=== PATIENT | female | born 1990 | race Caucasian/White ===

== ENCOUNTER 2021-01-01 17:31 | Emergency (ER) | payer BC, SELFPAY ==
[2021-01-01 17:39] VITALS: BP 106/59; PULSE 70; RESP 16; TEMP 36.4; O2SAT 98
[2021-01-01 18:03] LABS: Basophils Percent Auto 0.2 % (0.2-1.2); Eosinophils Percent Auto 0.2 % (0-4.4); Hematocrit 42.9 % (37.0-47.0); Immature Granulocyte Absolute 0.09 K/mm3 (0.00-0.031); Immature Granulocyte Percent A 0.5 % (0-0.5); Lymphocytes Absolute Auto 2.51 K/mm3 (0.9-3.2); Lymphocytes Percent Auto 13.6 % (18.3-44.2); Mean Corpuscular HGB Conc 32.6 g/dl (32-36); Mean Corpuscular Hemoglobin 28.9 pg (26-34); Mean Corpuscular Volume 88.5 fl (80-100); Mean Platelet Volume 10.2 fl (7.4-10.4); Monocytes Absolute Auto 1.5 K/mm3 (0.1-0.6); Monocytes Percent Auto 8.2 % (2.6-8.5); Neutrophils Absolute Auto 14.3 K/mm3 (1.3-6.7); Neutrophils Percent Auto 77.3 % (45.5-73.1); Platelet Count Result 299 k/mm3 (150-375); Red Blood Count 4.85 M/mm3 (4.2-5.4); Red Cell Distribution Width 13.7 % (11.5-14.5); White Blood Count 18.5 K/mm3 (4.5-10.0)
[2021-01-01 18:15] LABS: Albumin Level 4.8 g/dL (3.5-5.1); Alkaline Phosphatase 65 U/L (38-126); Anion Gap 11 mmol/L (8-16); Aspartate Amino Transferase 34 U/L (14-36); Bilirubin,Total 0.4 mg/dL (0.2-1.3); Blood Urea Nitrogen 11 mg/dL (7-17); Calcium 9.7 mg/dL (8.4-10.2); Carbon Dioxide 26 mmol/L (22-30); Chloride 101 mmol/L (98-107); Estimated CRCL calculation 107 ml/min; Estimated Glomerular Filt Rate > 60; Glucose 92 mg/dL (65-105); Potassium 3.2 mmol/L (3.4-5.0); Sodium 138 mmol/L (137-145)
[2021-01-01 18:22] LABS: Alanine Aminotransferase 22 U/L (4-35)
[2021-01-01] MEDS: SODIUM CHLORIDE 0.9% IV 1,000 ML 999 ML IV CONT ×2 (18:46→19:40)
[2021-01-01 19:36] VITALS: BP 128/78; PULSE 84; RESP 17; O2SAT 98
--- NOTE | 2021-01-01 19:36 | PC.NURSE ---
PT UNABLE TO URINATE, PROVIDER AWARE, RECEIVED ORDER FOR 1L NS BOLUS [address] MILLAN
[2021-01-01 20:40] LABS: Add Urine Microscopic? YES; Appearance Urine Cloudy (Clear); Bacteria Urine Trace /hpf; Bilirubin Urine Negative (Negative); Blood Urine Negative (Negative); Color Urine Yellow (Yellow); Glucose Urine UA Negative (Negative); Ketones Urine 2+ mg/dL (Negative); Leukocyte Esterase Ur Negative LEU/UL (Negative); Mucus Urine Moderate /lpf; Nitrate Urine Negative (Negative); Protein Urine 1+ mg/dL (Negative); Squamous Epithelial Cell Urine Many /hpf (Few); Urobilinogen Urine Negative mg/dL (<2.0); WBC Urine 0-3 /hpf
[2021-01-01 21:00] VITALS: BP 126/84; PULSE 84; RESP 16; O2SAT 99
--- NOTE | 2021-01-01 21:02 | ED.GENADULT ---
HPI - General Adult General Chief complaint: Nausea/Vomiting/Diarrhea Stated complaint: n/v, 12 weeks preg - requesting IV fluids Time Seen by Provider: 01/01/21 17:41 Source: patient Mode of arrival: ambulatory Limitations: no limitations History of Present Illness HPI narrative: 30-year-old 4 para 3 about 12 weeks of gestation here with complaints of nausea vomiting and diarrhea since yesterday, she feels dehydrated. She denies any fever or chills. She states that nausea has much improved prior to coming to the ER. Requesting IV fluids. She denies any abdominal pain, vaginal discharge or bleeding. No history of any abdominal cramping. Onset (ago): day(s) (1) Severity: moderate Exacerbating factors: none Associated symptoms: denies other symptoms Related Data Home Medications Medication Instructions Recorded Confirmed Baby Aspirin 01/01/21 Daily 01/01/21 Allergies Allergy/AdvReac Type Severity Reaction Status Date / Time No Known Allergies Allergy Unknown Unverified 01/01/21 17:46 Review of Systems Review of Systems: All systems reviewed & are unremarkable except as noted in HPI and below Constitutional: Constitutional: Reports no additional constitutional complaints Eyes: Eyes: Reports no additional eye complaints ENT: Reports system reviewed and no additional complaints, except as documented Cardiovascular: Cardiovascular: Reports no additional cardiovascular complaints Respiratory: Respiratory: Reports no additional respiratory complaints Gastrointestinal: Gastrointestinal: Reports as per HPI Musculoskeletal: Musculoskeletal: Reports no additional musculoskeletal complaints Neurologic: Reports system reviewed and no additional complaints, except as documented Endocrine: Endocrine: Reports no additional endocrine complaints PMFSH Social History Social History Gender identity (if verbalized by the patient): Female Exam Narrative: Exam Narrative: GENERAL: Well-appearing, well-nourished, and in no acute distress. HEAD: Normocephalic, atraumatic. EYES: PERRLA and EOMI NECK: Supple. CHEST: Clear to auscultation. No respiratory distress. HEART: Regular rate and rhythm. No murmur heard. Normal peripheral pulses. ABDOMEN: Soft, nontender, nondistended, normal active bowel sounds. EXTREMITIES: Normal range of motion. No edema. SKIN: Warm, dry, no rash. NEURO: No focal deficits. Alert and oriented x3. PSYCH: Normal mood and affect. Course Course Emergency Course: Patient did receive 2 bags of IV fluids, she states that she is feeling a lot better. No further episodes of any diarrhea or nausea or vomiting. I discussed lab work with patient and her . She states that she has an appointment to see OB in the next 2 days. Advised her to drink a lot of fluids. Vital Signs Vital signs: Vital Signs Temperature 36.4 C 01/01/21 17:39 Pulse Rate 70 01/01/21 17:39 Respiratory Rate 16 01/01/21 17:39 Blood Pressure 106/59 L 01/01/21 17:39 Pulse Oximetry 98 01/01/21 17:39 Temperature 36.4 C 01/01/21 17:39 Pulse Rate 84 01/01/21 21:00 Respiratory Rate 16 01/01/21 21:00 Blood Pressure 126/84 01/01/21 21:00 Pulse Oximetry 99 01/01/21 21:00 Medical Decision Making Differential Diagnosis Differential Diagnosis: Gastroenteritis, diarrhea dehydration, UTI Vital Signs Vital Signs: Vital Signs Temperature 36.4 C 01/01/21 17:39 Pulse Rate 70 01/01/21 17:39 Respiratory Rate 16 01/01/21 17:39 Blood Pressure 106/59 L 01/01/21 17:39 Pulse Oximetry 98 01/01/21 17:39 Temperature 36.4 C 01/01/21 17:39 Pulse Rate 84 01/01/21 21:00 Respiratory Rate 16 01/01/21 21:00 Blood Pressure 126/84 01/01/21 21:00 Pulse Oximetry 99 01/01/21 21:00 Lab Data Result diagrams: 01/01/21 17:56 01/01/21 17:56 Labs: Lab Results 01/01/21
== END 2021-01-01 21:32 | disposition home or self-care (01) ==
PROVIDERS: Emergency Provider Family Medicine; PCP Nurse Practitioner Family
DX: O99.611 Diseases of the digestive system complicating pregnancy, first trimester (principal); K52.9 Noninfective gastroenteritis and colitis, unspecified; Z3A.12 12 weeks gestation of pregnancy
CPT/HCPCS: 36415; 80053; 81001; 85025; 96360; 99283; J7030

== ENCOUNTER 2021-05-28 12:35 | Observation (INO) | payer BC, SELFPAY ==
[2021-05-28 12:56] VITALS: BMI 26.8
--- NOTE | 2021-05-28 12:57 | OBADM ---
This patient, Laisha Davila, admitted to the OB room 116 for observationfor extended monitoring due to FHR deceleration on NST at office. Patient/family oriented to hospital policies and general routines including ID bracelet, bed and alarms, visiting hours, pain management, procedures, bathroom and other care routines, personal items, smoking policy, room service/diet, and visiting hours. Patient/Family are encouraged to report perceived risks to care and to ask questions if they do not understand what they are told or what they should do.
[2021-05-28 13:00] VITALS: BP 109/63; PULSE 75
[2021-05-28 13:01] VITALS: RESP 16; TEMP 36.6
[2021-05-28 14:00] VITALS: BP 97/57; PULSE 74
--- NOTE | 2021-05-28 14:41 | PC.NURSE ---
Marco Adame CNM informed pt has been on the monitor almost 2 hrs with moderate variability and reactive accels, occasional 10 sec drop in FHR after an acceleration that makes it more a fluctuation in variability than a decel. Good movement marked.
--- NOTE | 2021-05-28 14:41 | PC.NURSE ---
Discharge orders received.
--- NOTE | 2021-06-07 10:03 | PM.OBTRLD ---
OB - Triage/Final Diagnosis Visit Information Comments/Additional reasons for admission: I have assessed the risk for this patient, Laisha Davila, and determined that she would benefit from observation care. Final Diagnosis (1) Non-reassuring electronic monitoring tracing: Code(s): O36.8390 - Maternal care for abnormalities of the heart rate or rhythm, unspecified trimester, not applicable or unspecified Status: Acute
== END 2021-05-28 15:03 | disposition home or self-care (01) ==
PROVIDERS: Admitting Provider Obstetrics & Gynecology; Visit Provider Obstetrics & Gynecology
DX: O36.8393 Maternal care for abnormalities of the fetal heart rate or rhythm, unspecified trimester, fetus 3 (principal); Z3A.32 32 weeks gestation of pregnancy
CPT/HCPCS: G0378; G0379

== ENCOUNTER 2021-07-06 18:14 | Inpatient (IN) | payer BC, SELFPAY ==
--- NOTE | 2021-07-06 18:14 | LDADM ---
This patient, Laisha Davila, was admitted to Labor/Delivery/Recovery 106 on 07/06/21 at 18:56. Plans for labor, pain management and were discussed with patient. Patient/family oriented to hospital policies and general routines including ID bracelet, bed and alarms, visiting hours, pain management, procedures, bathroom and other care routines, personal items, smoking policy, room service/diet and guest tray routines, infant security routines, and visiting hours. Patient/Family are encouraged to report perceived risks to care and to ask questions if they do not understand what they are told or what they should do. See OBIX for further documentation.
[2021-07-06] MEDS: AMPICILLIN 2 GM/NS 100 ML 2 GM/100 ML BAG IVPB (19:50)
[2021-07-06] MEDS: LACTATED RINGERS 1,000 ML 125 ML IV CONT (19:59)
[2021-07-06] MEDS: fentaNYL CITRATE INJ (*CRX) 100 MCG/2 ML VIAL 50 MCG IV PUSH ×3 (20:00→22:36)
[2021-07-06 20:19] LABS: Hematocrit 38.4 % (37.0-47.0); Hemoglobin 12.7 g/dL (12.0-15.0); Mean Corpuscular HGB Conc 33.1 g/dl (32-36); Mean Corpuscular Hemoglobin 29.2 pg (26-34); Mean Corpuscular Volume 88.3 fl (80-100); Mean Platelet Volume 10.8 fl (7.4-10.4); Platelet Count Result 228 k/mm3 (150-375); Red Blood Count 4.35 M/mm3 (4.2-5.4); Red Cell Distribution Width 14.5 % (11.5-14.5); White Blood Count 21.2 K/mm3 (4.5-10.0)
[2021-07-06 20:39] LABS: Amphetamine Screen Urine Negative (Negative); Barbiturate Screen Urine Negative (Negative); Benzodiazepines Screen Urine Negative (Negative); Cannabinoid Screen Urine Positive (Negative); Cocaine Screen Urine Negative (Negative); Methadone Screen Urine Negative (Negative); Opiate Screen Urine Negative (Negative); Phencyclidine Screen Urine Negative (Negative)
[2021-07-06 20:54] VITALS: BP 102/61; PULSE 81
[2021-07-06 20:59] LABS: Glucose Point of Care 78 mg/dl (65-105)
[2021-07-06 21:03] LABS: Lymphocytes Absolute Manual 1.69 K/mm3 (1.1-4.5); Monocytes Absolute Manual 1.27 K/mm3 (0.1-0.90); Monocytes Percent Manual 6 % (3-9); Neutrophils Percent Manual 86 % (46-73); Platelet Estimate Adequate (Adequate); Total Cells Counted 100
[2021-07-06 21:41] VITALS: RESP 20; TEMP 37.1
[2021-07-06 22:06] VITALS: BP 113/77; PULSE 77
[2021-07-06 23:07] VITALS: RESP 18; TEMP 37
[2021-07-06 23:09] LABS: Glucose Point of Care 118 mg/dl (65-105)
[2021-07-06 23:27] VITALS: BP 124/70; PULSE 84
[2021-07-06] MEDS: AMPICILLIN 1 GM/NS 50 ML 1 GM/50 ML BAG IVPB (23:34)
[2021-07-06] MEDS: ONDANSETRON INJ 4 MG/2 ML VIAL IV PUSH (23:39)
[2021-07-07] VITALS (18 sets, daily range): BP systolic 94–129; BP diastolic 52–98; PULSE 52–93; RESP 12–18; TEMP 36.5–37; O2SAT 99–100; BMI 27.8
[2021-07-07] MEDS: fentaNYL CITRATE INJ (*CRX) 100 MCG/2 ML VIAL 50 MCG IV PUSH ×2 (00:38→01:39)
[2021-07-07 01:29] LABS: Glucose Point of Care 128 mg/dl (65-105)
--- NOTE | 2021-07-07 01:40 | P.HP_ITS ---
Obstetrics - Admit Note Admission Note: 30 /o @ 38weeks here with spontaneous labor. complicated by GDM. Diet controlled. /-2 AROM small amout of clear odorless fluid record reviewed. No pertinent additions to the history and/or any subsequent changes in the physical findings that are not consistent with the e xpected course of the were found. Additions to the history and/or subsequent changes in the physical findings follow. None.
[2021-07-07] MEDS: OXYTOCIN 30 UNITS/NS 500 ML 30 UNITS/500 ML BAG 999 UNITS IV CONT ×2 (02:12→02:50)
--- NOTE | 2021-07-07 02:19 | P.PCNOB_ITS ---
OB - Delivery Note Procedure Delivery date: 07/07/21 Intrapartal events: None Induction method: none Episiotomy description: None Laceration Description: None Quantitative Blood Loss (ml): 147 Anesthesia type: None [place] Baby Date of : 07/07/21 Weeks of gestation at delivery: 38 gender: Female presentation: vertex position: Left Occiput Anterior Placenta delivery description: Spontaneous Narrative: Mother and baby in stable condition. Venous cord gas collected and handed off to staff. Unable to collect arterial.
[2021-07-07] MEDS: IBUPROFEN 600 MG TABLET PO ×3 (03:45→19:43)
--- NOTE | 2021-07-07 04:35 | OBPPTRN ---
Patient transferred to post room # 4803via wheelchair. Support person present. Oriented to unit, room, information board, rooming in, admission packet and security measures. Patient verbalizes understanding.
[2021-07-07] MEDS: ONDANSETRON INJ 4 MG/2 ML VIAL IV PUSH (06:33)
[2021-07-07] MEDS: KETOROLAC 30 MG/ML VIAL (*BKC) IV PUSH (06:59)
[2021-07-07] MEDS: ACETAMINOPHEN 325 MG TABLET 650 MG PO ×2 (09:21→15:37)
[2021-07-07 09:26] LABS: Rapid Plasma Reagin Non-Reactive (NonReactive)
--- NOTE | 2021-07-07 11:23 | PCCCNOTE ---
Received consult for marijuana use. Spoke to nursing. Pt. is positive for marijuana on urine drug use. No urine drug screen on baby girl; meconium is pending. Met with pt. and father of baby at bedside. Pt. confirms marijuana use. She denies any other use of substances or alcohol during . She lives with father of baby and their 2 other children. She indicates having supportive family and that father of baby's family is supportive as well. Each of their mothers are coordinating care of their other children during hospitalization. They state having all needed items to care for at return home and state making too much money for WIC. They report no history with DCFS. Nursing reports no other concerns. Situation reported to DCFS and information does not meet criteria for investigation; information will be kept on file. Intake ID#[id number]. No other care coordination needs indicated at this time.
--- NOTE | 2021-07-07 12:45 | PC.NURSE ---
to mother after blood glucose. Mother reports has had difficulties maintaining latch and freq sleepy at breast. is able to freely thrust tongue frenulum appears tight, both lips flange. Skin is intact on both nipples, slight redness noted. Reviewed feeding cues, frequencies, duration of feedings, feeding elimination flow sheet, and signs of adequate intake. Demonstrated stimulation techniques to wake for feeding. Assisted with infant to breast. Reviewed positioning/alignment in cross cradle, holding breast in ?U? hold and guided asymmetrical latch on. Reviewed rational for each. Once infant is latched mother released hold and infant is unable to maintain latch. Infant made a few attempts to latch with short burst of suckling noted, then released latch sleeping and unable to wake to latch. Mother states she will bottle feed. Reviewed she can skin to skin for 15 minutes and attempt again if infant does not nurse then supplement due to time from last feeding. Nipple care reviewed of lanolin after feedings, warm compresses as needed. Instructed mother to call out for RN assistance if she is unable to latch for feeding or she has discomfort with nursing. Discussed the difference of effective vs ineffective feeding. Reviewed this feeding is not effective with only a few bursts of suckling no adequate milk transfer at this time. Feeding options discussed, Feeding Plan is for mother to put to breast each feeding for up to 15 minutes, then pace feed supplement 20 mls and pump for 10-15 minutes. Parents are comfortable with supplementation and pumping.
[2021-07-08] MEDS: ACETAMINOPHEN 325 MG TABLET 650 MG PO ×2 (01:19→09:59)
[2021-07-08] MEDS: IBUPROFEN 600 MG TABLET PO ×2 (04:15→10:00)
[2021-07-08 05:54] LABS: Hematocrit 34.9 % (37.0-47.0); Hemoglobin 11.2 g/dL (12.0-15.0)
--- NOTE | 2021-07-08 07:30 | PC.NURSE ---
PT introductions made and plan of care discussed per post , pain management, breast feeding, daily care activities and pending discharge to home. PT received such instructions per one to one discussion , mom baby care guide and demonstrations through out this shift. PT sole recipient of such instructions and no barriers to learning identified at this time. PT verbalized understanding of such care.
[2021-07-08 08:55] VITALS: BP 100/60; PULSE 57; RESP 16; TEMP 36.6; O2SAT 100
--- NOTE | 2021-07-08 09:12 | PM.OBPNVD ---
OB - PN: Subj Subjective Date/time seen: 07/08/21 09:12 Patient comments: no complaints baby status: doing well OB - PN: Obj Data Labs CBC & Chem 7: 07/08/21 04:23 Labs: Laboratory Results - last 24 hr 07/06/21 07/08/21 19:53 04:23 Hgb 11.2 L Hct 34.9 L RPR Non-reactive OB - PN A/P Plan day: 2 Plan: routine care and discharge home (RTC in 4 weeks) Time Spent With Patient Time: Total time spent is greater than 50% in coordination of care (as documented) at patient's floor/unit and/or counseling patient: Time with patient: less than 15 minutes Review of Systems Review of Systems: All systems reviewed & are unremarkable except as noted in HPI and below Exam Narrative: Fundus firm and vaginal flow controlled. No lower ext redness, warmth, or edema. Negative homans. Const: General: comfortable Chest: Breast/axilla inspection: normal inspection of the breasts Resp: Effort & Inspection: normal respiratory effort Cardio: Rate: regular rate GI: GI Palp: Yes Soft to palpation Psych: Appearance: grossly normal Affect: normal affect Attitude: cooperative Thought content: Yes Normal thought content present Judgement: Good judgement present (Psych)
--- NOTE | 2021-07-08 09:50 | PC.NURSE ---
Observed mother is able to independently latch infant with appropriate positioning/alignment. She denies any nipple discomfort, is feeding as required and waking infant to feed if needed. Mother reports has been sleepy, not eagerly latching and having difficulties maintaining latch. Discussed infant tongue and how it may impact latch. Advised to discuss with her PCP at first appointment. Mother will make a few minutes of attempt to breast then supplement. will eagerly nurse the first 2-3 minutes then fall asleep at breast maintaining good latch. Infant has been enticed with formula, he will have a few bursts of suckling then fall asleep. Infant has had a few effective feedings in the past 24 hours, all feedings is supplemented. Infant is currently meeting outcomes for weight, output, jaundice and feeding frequencies. Mother has a pump for home use, and is comfortable with use. Discussed the difference of effective vs ineffective feeding. Reviewed requires supplementation after all feedings. He is latching with good burst of suckling, he is not feeding consistently with adequate milk transfer at this time and continues to need to be supplement after . Feeding plan discussed, Feeding Plan is for mother to put to breast each feeding for up to 15 minutes, then pace feed supplement 25-30 mls and pump for 10-15 minutes. Discussed increasing supplementation as infant requires to satisfactions. Reviewed paced feeding and suggested to stop when is satisfied, as long as infant is having required output. With increased supplementation infant may not want to feed for 4 hours. Mother will continue to pump on feeding schedule and will increase session to 20 minutes if pumping every 4 hours. If begins to nurse effectively with long draws and frequent swallowing noted, infant may decrease supplementation and discontinue pumping. Advised not to discontinue supplement until a pre/post feeding evaluation by infant PCP, Follow up RN or LC is completed. Mother states she feels confident to continue feeding plan at home. Reviewed transition to breast milk, signs of adequate intake, and engorgement/relief. Instructed to call ICP if intake/output less than required. Reviewed regular medications mother is taking. Information provided per [facility]. Reviewed community resources on the [employer] website and in the Mom/Baby guide. Information on outpatient services provided. Mother has no further questions at this time.
[2021-07-08 10:00] VITALS: BP 113/67; PULSE 55; RESP 16; TEMP 36.9; O2SAT 99
[2021-07-08] MEDS: MULTIVIT/MIN/PREN/FOL AC/IRON TABLET 1 TAB PO (10:00)
[2021-07-08] MEDS: DOCUSATE SODIUM 100 MG CAPSULE PO (10:00)
[2021-07-08] MEDS: LANOLIN (LANSINOH) 7.5 GM CREAM 1 APPLIC TOPICAL (10:01)
--- NOTE | 2021-07-08 12:00 | PC.NURSE ---
PT received discharge instructions per protocol and verbalized understanding of such instructions.
--- NOTE | 2021-07-08 12:25 | PC.NURSE ---
PT discharged to home ambulatory accompanied by both spouse and infant and taken to waiting car. Follow up appts confirmed
[2021-07-09 11:53] VITALS: BP 115/66; PULSE 50; RESP 20; TEMP 36.8; O2SAT 100
--- NOTE | 2021-07-16 07:54 | PM.OBDSVD ---
DS: Admitting Diagnosis Discharge Date 07/08/21 Admitting Diagnosis Labor OB - DS: Summary OB Procedures : None OB Procedures Intrapartum: Spontaneous Vag Delivery OB Procedures: : None Time Spent with Patient Time attestation: Total time spent providing and/or coordinating discharge services: DS: Data Data Completed and Pending Completed studies during hospitalization: Pending at discharge 07/07/21 02:42 Surgical [PTH] Routine Discharge Plan Discharge Attending physician on discharge: Kaci Adame Consulting providers: Kaci Adame Discharging Clinician: Kaci Adame Patient Disposition: Home, Self-Care Activity: pelvic rest Diet: as tolerated Discharge Instructions: Education: Mom and Baby Guide Given to: Mother Follow-Up: Call your delivering provider's office for an appointment to be seen in: Mom and baby should come to the [facility] for the follow-up appointment. Appointment Date/Time: July 09, 2021 at 11:00 am What to expect at your follow-up visit: Blood Pressure Check Call [phone] if you are unable to keep your appointment time. BREAST CARE: * Wear a snug supportive bra. * For engorgement discomfort: Breast Feeding: * Apply warm moist washcloths * Express milk as needed to relieve engorgement * Wear loose clothing Bottle Feeding: * May apply ice packs * For sore nipples: * Identify correct latch-on * Apply warm moist washcloths before and after nursing * Air dry nipples after nursing * May apply Lansinoh cream to nipples PERINEAL CARE: * Until bleeding stops, use your denise bottle after urinating * Change your pad frequently throughout the day * You may take sitz baths several times a day (fill your bathtub with warm water and soak for 20 minutes.) Do NOT bathe in the water * No tub baths until seen by your physician - You may shower ACTIVITY: * Rest as much as possible. * Do not exercise or lift anything heavier than your baby (such as laundry or other children.) * Avoid stairs or driving as much as possible. * Do not put anything into the vagina. No douching, tampons, or sexual activity until seen by physician. NOTIFY PHYSICIAN IF YOU HAVE ANY QUESTIONS OR IF ANY OF THE FOLLOWING SYMPTOMS OCCUR: * If your perineum becomes red, swollen, or more painful than what you have experienced in the hospital. * If your vaginal bleeding becomes foul smelling. * If your vaginal bleeding becomes more heavy than a period or if your bleeding changes from pink to bright red. However, you may pass an occasional walnut-sized clot once or twice for the first week . * If you experience a sharp, shooting pain in you calves. * If you discover a hard, reddened area on your breast or if you experience flu-like symptoms. *If you have a fever of 100.4 or greater DIET: * Eat regular, well-balanced meals. * Drink plenty of fluids daily. If , drink to thirst. Patient Instructions: Antibiotic Form Stand Alone Forms: General Discharge Information Follow-up/Referrals: Kaci Adame CNM [Certified Nurse Battalion Chief] - Discharge Medications: New ibuprofen 600 mg Tablet 600 mg PO Q6H PRN (Reason: Cramping) Qty: 20 RF: 0 Continued aspirin 81 mg Tablet 81 mg PO DAILY RF: 0 PNV cmb#[id number]-ferrous fumarate-FA [] 28 mg iron- 800 mcg Tablet 1 tablet PO DAILY RF: 0 Discontinued Novolin N NPH U-100 Insulin 100 unit/mL Cartridge 8 unit SUBCUT HS RF: 0 Date of admission: 07/06/21 18:56 Primary Care Provider: PHYSICIAN,ASE CERTIFIED TECHNICIAN Admitting Provider: Kari Birmingham Attending physician on admission: Kari Birmingham Condition: Stable
== END 2021-07-08 12:25 | disposition home or self-care (01) | DRG 807 ==
LOC: ANHLDR 18:56 → ANHOB2 07-07 05:53
PROVIDERS: Advanced Practice Midwife; Admitting Provider Obstetrics & Gynecology; Visit Provider Obstetrics & Gynecology
DX: O24.420 Gestational diabetes mellitus in childbirth, diet controlled (principal); Z37.0 Single live birth; O99.824 Streptococcus B carrier state complicating childbirth; Z3A.38 38 weeks gestation of pregnancy
CPT/HCPCS: 36415; 80307; 82948; 85014; 85018; 85025; 86592; 86850; 86900; 86901; 88307; A9270; J0290; J1885; J2405; J2590; J3010; J7120

== ENCOUNTER 2022-04-10 21:43 | Emergency (ER) | payer BC, SELFPAY ==
--- NOTE | ~2022-04-10 | CT_ITS ---
EXAMINATION: CT abdomen pelvis w con INDICATION: Right upper quadrant pain TECHNIQUE: Computed tomographic images of the abdomen and pelvis were obtained after the administrati on of 100 cc of Omnipaque 350 intravenous contrast. The dose-length product (DLP) was 407.73 mGy-cm. Automated exposure control and iterative reconstruction technique were employed. COMPARISON: 06/06/2019 FINDINGS: The lung bases are clear. The heart size is normal. The liver, spleen, pancreas, and adrena l glands are normal. There appear to be layering stones in the gallbladder which is not distended. No nobstructing stones of the kidneys measure up to 5 mm on the right. A 6 mm hypoattenuating lesion of the left kidney is too small to characterize but likely represents a cyst. No pathologically enlarged abdominal or pelvic lymph nodes are identified. There is no free intraperitoneal gas or evidence of bowel obstruction. The appendix is normal. Mild lumbar spondylosis is noted. IMPRESSION: 1. Cholelithiasis. Reviewed, dictated and finalized at location A. IMPRESSION: 1. Cholelithiasis.
[2022-04-10 21:47] VITALS: BP 128/73; PULSE 67; RESP 17; TEMP 36.4; O2SAT 100
[2022-04-10 22:12] LABS: Basophils Percent Auto 0.3 % (0.2-1.2); Eosinophils Absolute Auto 0.4 K/mm3 (0-0.3); Hematocrit 37.3 % (37.0-47.0); Hemoglobin 11.7 g/dL (12.0-15.0); Immature Granulocyte Absolute 0.02 K/mm3 (0.00-0.031); Immature Granulocyte Percent A 0.3 % (0-0.5); Lymphocytes Absolute Auto 2.77 K/mm3 (0.9-3.2); Lymphocytes Percent Auto 44.6 % (18.3-44.2); Mean Corpuscular HGB Conc 31.4 g/dl (32-36); Mean Corpuscular Hemoglobin 28.5 pg (26-34); Mean Platelet Volume 9.4 fl (7.4-10.4); Monocytes Absolute Auto 0.8 K/mm3 (0.1-0.6); Monocytes Percent Auto 13.4 % (2.6-8.5); Neutrophils Absolute Auto 2.2 K/mm3 (1.3-6.7); Neutrophils Percent Auto 35.4 % (45.5-73.1); Platelet Count Result 210 k/mm3 (150-375); White Blood Count 6.2 K/mm3 (4.5-10.0)
--- NOTE | 2022-04-10 22:17 | ED.ABDPAIN ---
HPI - Abdominal Pain General Chief Complaint: Abdominal Pain <VERITO Zavala Last Filed: 04/10/22 23:42> Stated Complaint: RUQ pain <VERITO Zavlaa Last Filed: 04/10/22 23:42> Time Seen by Provider: 04/10/22 21:55 <VERITO Zavala Last Filed: 04/10/22 23:42> Source: patient <VERITO Zavala Last Filed: 04/10/22 23:42> Mode of arrival: ambulatory <VERITO Zavala Last Filed: 04/10/22 23:42> Limitations: no limitations <VERITO Zavala Last Filed: 04/10/22 23:42> History of Present Illness HPI narrative: This is a 31-year-old female that presents to the emergency department for right upper quadrant pain. Ongoing over the last several months. Reports she has known history of gallbladder disease and was recommended by Dr. Ferrer to have a cholecystectomy. Today she ate pizza for lunch and since has had constant right upper quadrant abdominal pain. Associated with nausea. Denies fever or vomiting. <VERITO Zavala Last Filed: 04/10/22 23:42> Related Data Allergies/Adverse Reactions: Allergies Allergy/AdvReac Type Severity Reaction Status Date / Time No Known Allergies Allergy Unknown Verified 01/07/22 09:26 <VERITO Zavala Last Filed: 04/10/22 23:42> Review of Systems Review of Systems: CONSTITUTIONAL: Denies fever GASTROINTESTINAL: Reports abdominal pain, nausea. Denies vomiting GENITOURINARY: Denies dysuria <VERITO Zavala Last Filed: 04/10/22 23:42> All systems reviewed & are unremarkable except as noted in HPI and below <VERITO Zavala Last Filed: 04/10/22 23:42> [facility] Past Medical History Medical History: Medical History History of gestational diabetes Kidney stones <VERITO Zavala Last Filed: 04/10/22 23:42> Surgical History Surgical History: Surgical History S/P adenoidectomy <Kate Lopez PA-C - Last Filed: 04/10/22 23:42> Family History Family History: Family History Unknown Diabetes mellitus Hypertension Cancer Allergies <Kate Lopez PA-C - Last Filed: 04/10/22 23:42> Social History Social History: Social History Smoking status: Never smoker Second hand tobacco smoke exposure: No Substance use: never Gender identity (if verbalized by the patient): Female Spiritual care concerns: No <VERITO Zavala Last Filed: 04/10/22 23:42> Exam Narrative: GENERAL: Well-appearing, well-nourished, and in no acute distress. HEAD: Normocephalic, atraumatic. EYES: EOMI. CHEST: Clear to auscultation. No respiratory distress. No wheezes rales or rhonchi HEART: Regular rate and rhythm. No murmur heard. Normal peripheral pulses. ABDOMEN: Soft, nondistended, normal active bowel sounds. Tender to palpation in the right upper quadrant, without guarding EXTREMITIES: Normal range of motion. No edema. SKIN: Warm, dry, no rash. NEURO: No focal deficits. Alert and oriented x3. PSYCH: Normal mood and affect <Kate Lopez PA-C - Last Filed: 04/10/22 23:42> Course UPPER LINING CEMENTER/PA Physician Supervision For this encounter, I have reviewed the PIPER documentation, treatment plan and medical decision making: I was available for consultation as needed. [] <Khadar Grajeda DO - Last Filed: 04/11/22 01:48> Consultations Consultation #1: Spoke with Dr. [place] about patient and work-up. Patient is to follow-up in clinic <VERITO Zavala Last Filed: 04/10/22 23:42> Date: 04/10/22 <Kate Lopez PA-C - Last Filed: 04/10/22 23:42> Time: 23:39 <Kate Lopez PA-C - Last Filed: 04/10/22 23:42> Vital Signs Vital signs: Vital Signs Temperature 97.5 F L 04/10/22 21:47 Pul
[2022-04-10 22:18] LABS: Appearance Urine Clear (Clear); Bilirubin Urine Negative (Negative); Blood Urine Trace-lysed (Negative); Color Urine Yellow (Yellow); Glucose Urine UA Negative (Negative); Ketones Urine Negative (Negative); Leukocyte Esterase Ur Negative LEU/UL (Negative); Nitrate Urine Negative (Negative); Protein Urine Negative (Negative); Specific Grav Ur >= 1.030 (1.001-1.035); Urobilinogen Urine 0.2 mg/dL (<2.0); pH Urine 5.5 (5.0-9.0)
[2022-04-10 22:23] LABS: Alanine Aminotransferase 14 U/L (6-35); Alkaline Phosphatase 49 U/L (38-126); Anion Gap 7 mmol/L (8-16); Aspartate Amino Transferase 21 U/L (14-36); Bilirubin,Total 0.1 mg/dL (0.2-1.3); Blood Urea Nitrogen 17 mg/dL (7-17); Calcium 8.6 mg/dL (8.4-10.2); Carbon Dioxide 29 mmol/L (22-30); Chloride 101 mmol/L (98-107); Estimated Glomerular Filt Rate > 60; Glucose 114 mg/dL (65-110); Lipase 104 U/L (23-300); Potassium 4.1 mmol/L (3.4-5.0); Sodium 137 mmol/L (137-145)
[2022-04-10 22:24] LABS: Add Urine Microscopic? YES; Bacteria Urine Trace /hpf; Mucus Urine Rare /lpf; RBC Urine 0-2 /hpf (0-2); Squamous Epithelial Cell Urine Few /hpf (Few); WBC Urine 0-3 /hpf
[2022-04-10] MEDS: MORPHINE SULFATE (*CRX) 4 MG/ML INJ IV PUSH (22:24)
[2022-04-10] MEDS: ONDANSETRON INJ 4 MG/2 ML VIAL IV PUSH (22:24)
[2022-04-10] MEDS: SODIUM CHLORIDE 0.9% IV 1,000 ML 999 ML IV CONT (22:24)
[2022-04-10 23:00] VITALS: BP 126/76; PULSE 78; RESP 16; TEMP 36.3; O2SAT 98
[2022-04-10] MEDS: KETOROLAC 15 MG/ML VIAL (*BKC) IV PUSH (23:56)
[2022-04-11 00:01] VITALS: BP 92/61; PULSE 57; RESP 18; O2SAT 100
== END 2022-04-11 00:02 | disposition home or self-care (01) ==
PROVIDERS: Physician Assistant; Emergency Provider Emergency Medicine; PCP Nurse Practitioner Adult Health
DX: K80.20 Calculus of gallbladder without cholecystitis without obstruction (principal); Z87.442 Personal history of urinary calculi
CPT/HCPCS: 36415; 74177; 80053; 81001; 81025; 83690; 85025; 96361; 96365; 96375; 99284; J0131; J1885; J2270; J2405; J7030; Q9967

== ENCOUNTER 2022-05-04 10:46 | Outpatient (CLI) | payer BC, SELFPAY ==
[2022-05-04 11:26] LABS: Amylase 68 U/L (30-110)
== END 2022-05-04 10:47 | disposition home or self-care (01) ==
LOC: ANHSURGERY 10:50
PROVIDERS: PCP Nurse Practitioner Adult Health; Visit Provider Surgery
DX: Z01.812 Encounter for preprocedural laboratory examination (principal); K80.20 Calculus of gallbladder without cholecystitis without obstruction
CPT/HCPCS: 36415; 82150; 86850; 86900; 86901

== ENCOUNTER 2022-05-07 01:58 | Day surgery (SDC) | payer BC, SELFPAY ==
[2022-04-27 17:08] VITALS: BMI 30.2
--- NOTE | 2022-04-27 17:33 | PC.NURSE ---
Report to the Outpatient Waiting Room, entrance under the green pavilion located off [facility], at 1130 on 05-07-22 . OR Time: 1330. - You and your visitor will be asked to self-screen and do not enter if you have any COVID symptoms. - Only one visitor and NO children visitors are allowed at this time. - The patient visitor is requested to leave or wait in car when not with patient due to restrictions. - A mask is required within the hospital. Patients may have clear liquids (water, carbonated beverages, clear teas, apple juice) until 3 hours prior to surgery with a maximum of 20 ounces. 1030 - No food from midnight until time of surgery - Infants may have breast milk until 4 hours before surgery, infant formula 6 hours prior to surgery. - Children will be allowed to drink immediately following surgery. If applicable, please bring a bottle or sippy cup to assist with drinking. Juice, water, soda, and popsicles are readily available. For infants on formula, please bring formula the day of surgery. Pacifiers are allowed. Take the following medications with a SIP of water the morning of surgery: Forrest if needed Medications to discontinue per physician: Ibuprofen Date to take last dose: Per Dr. Ferrer Please no make-up, nail maltese, hairspray, perfume, deodorant, or body powder the day of surgery. No jewelry (including any body piercings) or valuables the day of surgery, leave them at home. Please take a shower or bath the night before, or the morning of, surgery with an antibacterial soap. Hibiclens Wear comfortable, loose fitting clothing. Children are encouraged to wear pajamas. - Jewelry must be removed prior to entering the operating room. Rings and piercings that are not removed may be cut off. - The hospital will not accept responsibility for valuables. - Please leave all valuables, including medications, at home the day of surgery. If you are going home after surgery, a licensed armor reconnaissance vehicle driver must drive you home. - NO public transportation without another adult. - We recommend that an adult stay with you for 24 hours following discharge. - We also recommend that you do not drive, make important decision, drink alcoholic beverages, or take any drugs that were not prescribed by your health care provider for at least 24 hours after your discharge time. For Pediatric surgeries, we recommend two adults accompany the child home (only one inside the building at this time). Follow any additional instructions given to you from your surgeon. If you or anyone in your household have experienced Covid symptoms in the past week, please notify your surgeon or the nurse liaison at the phone number below for possible testing. Telephone instructions given to Laisha Davila and asked if any additional questions and then verbalized understanding. Patient advised to call surgeon office or pre surgery nurse liaison [phone] if any additional questions.
[2022-05-07] VITALS (10 sets, daily range): BP systolic 93–135; BP diastolic 54–82; PULSE 60–89; RESP 14–16; TEMP 36.2; O2SAT 92–100
[2022-05-07] MEDS: LACTATED RINGERS 1,000 ML 30 ML IV CONT ×2 (12:17→16:00)
[2022-05-07] MEDS: KETOROLAC 15 MG/ML VIAL (*BKC) IV PUSH (12:18)
[2022-05-07] MEDS: ACETAMINOPHEN 500 MG TABLET 1000 MG PO (12:18)
--- NOTE | 2022-05-07 12:31 | WPDANESEPPF ---
Anes - Initial Pre Proc Eval Procedure: Operation Date: 05/07/22 13:30 Proposed Procedures p Laparoscopic Cholecystectomy, Possible Open - Fly Ferrer DO Date/Time: 05/07/22 12:31 Surgeon: Fly Ferrer DO Pre Op Diagnosis: Symptomatic Cholelithiasis Patient Data Age: 31 Gender: F Height: 1.57 m Weight: 69.49 kg Last Vital Signs Temp 36.2 C L 05/07/22 12:24 Pulse 68 05/07/22 12:24 Resp 16 05/07/22 12:24 BP 114/72 05/07/22 12:24 Pulse Ox 100 05/07/22 12:24 O2 Del Method Room Air 05/07/22 12:24 Allergies Allergy/AdvReac Type Severity Reaction Status Date / Time No Known Allergies Allergy Unknown Verified 05/07/22 12:23 Home Medications Medication Instructions Recorded Confirmed Type hydrocodone 5 mg-acetaminophen 325 1 tablet PO Q6H PRN pain #14 tabs 04/10/22 05/07/22 Rx mg tablet ibuprofen 200 mg tablet 400 mg PO Q6H PRN Pain 04/27/22 05/07/22 History Patient hx anesthesia problems: none Family hx anesthesia problems: none Results Review: All pre-operative results and documents have been reviewed as part of the pre-operative evaluation. [facility] Past Medical History Medical History History of gestational diabetes Kidney stones Surgical History Surgical History S/P adenoidectomy Family History Family History Unknown Diabetes mellitus Hypertension Cancer Allergies Social History Social History Smoking status: Never smoker Second hand tobacco smoke exposure: No Alcohol intake: never Substance use: never Substance use type: marijuana Other substance usage details: smokes it daily Living arrangements: with family Gender identity (if verbalized by the patient): Female Spiritual care concerns: No Anes - Eval Final PreProcedure Day of Procedure 05/07/22 12:31 Patient weight: overweight Heart: regular rate and rhythm Lungs: clear to auscultation Airway: Mallampati scale class II Neurological: alert and oriented Last oral intake: >/= 8 hours ASA classification: II Emergent: no Anesthetic plan: proceed Results Review: All pre-operative results and documents have been reviewed as part of the pre-operative evaluation. Informed Consent: The patient's anesthetic plan and its attendant risks and benefits were discussed with the patient/family/POA. Questions were solicited and answers provided to the satisfaction of the patient/family/POA.
--- NOTE | 2022-05-07 13:31 | WPDHPUPDATE1 ---
History and Physical Update Update Date/Time: 05/07/22 13:31 History and Physical has been reviewed, including an updated exam of the patient. There are NO changes in the patient's condition. Risks, benefits, and alternatives have been discussed and questions answered. Patient agrees to proceed with procedure.
--- NOTE | 2022-05-07 13:31 | PM.IMHP ---
H&P: HPI History of Present Illness Date/Time: 05/07/22 13:31 Chief Complaint: Cholelithiasis Narrative: This is a 31 yo woman who presents for cholecystectomy. She was originally seen back in December and discussions were made with the patient about proceeding with surgery. She was not ready to proceed at that time but had another attack of pain and went to the emergency department last month. She now presents to proceed with laparoscopic cholecystectomy. Review of Systems Review of Systems: All systems reviewed & are unremarkable except as noted in HPI and below Constitutional: Constitutional: Denies chills, Denies fever(s), Denies headache(s) and Denies weight loss Eyes: Eyes: Denies change in vision ENT: Denies dizziness, Denies headache(s), Denies neck mass and Denies throat swelling Cardiovascular: Cardiovascular: Denies chest pain, Denies lightheadedness and Denies dyspnea Respiratory: Respiratory: Denies cough, Denies dyspnea and Denies wheezing Gastrointestinal: Gastrointestinal: Denies abdominal pain, Denies change in bowel habits, Denies nausea and Denies vomiting Genitourinary: Genitourinary: Denies hematuria and Denies dysuria Musculoskeletal: Musculoskeletal: Reports as per HPI Integumentary/Breasts: Skin/Breast: Reports as per HPI Neurologic: Denies dizziness and Denies headache(s) Allergic/Immunologic: Allergic/Immunologic: Denies throat swelling and Denies wheezing PMFSH Past Medical History Medical History History of gestational diabetes Kidney stones Surgical History Surgical History S/P adenoidectomy Family History Family History Unknown Diabetes mellitus Hypertension Cancer Allergies Social History Social History Smoking status: Never smoker Second hand tobacco smoke exposure: No Alcohol intake: never Substance use: never Substance use type: marijuana Other substance usage details: smokes it daily Living arrangements: with family Gender identity (if verbalized by the patient): Female Spiritual care concerns: No Meds Home Medications and Allergies Home Medications Medication Instructions Recorded Confirmed Type hydrocodone 5 mg-acetaminophen 325 1 tablet PO Q6H PRN pain #14 tabs 04/10/22 05/07/22 Rx mg tablet ibuprofen 200 mg tablet 400 mg PO Q6H PRN Pain 04/27/22 05/07/22 History Allergies Allergy/AdvReac Type Severity Reaction Status Date / Time No Known Allergies Allergy Unknown Verified 05/07/22 12:23 Vital Signs Vital Signs - 24 hr 05/07/22 12:24 Temperature 36.2 C L Pulse Rate 68 Respiratory Rate 16 Blood Pressure 114/72 Pulse Oximetry 100 Oxygen Delivery Room Air Exam Const: General: no acute distress and alert Orientation/consciousness: patient oriented x3 HENMT: Head: normocephalic and atraumatic Ears: hearing grossly normal bilaterally General nose exam: Normal nares present Mouth: Yes Normal oral and palatal mucosa present Eyes: Periorbital: periorbital findings normal Sclera: sclerae normal EOM: EOMs intact bilaterally Neck: Neck: normal visual inspection, no lymphadenopathy and trachea midline Chest: Chest palpation & inspection: normal inspection of the chest Resp: Effort & Inspection: normal respiratory effort Auscultation: clear to auscultation bilaterally Cardio: Jugular venous distension: no JVD Rate: regular rate Rhythm: regular rhythm Heart sounds: S1 normal heart sound present and S2 normal heart sound present Peripheral pulses: Peripheral pulses 2+ throughout GI: Inspection: normal to inspection GI Palp: Yes Soft to palpation, No Tenderness to palpation present (GI), No Guarding due to palpation present (GI) and No Rebound tenderness present Percussion: Yes normal to percussi
[2022-05-07] MEDS: ceFAZolin 2 GM/D5W 50 ML 2 GM/50 ML BAG IVPB (13:44)
--- NOTE | 2022-05-07 14:32 | W.PM.PROC2 ---
Procedure Note - Detailed Date of Procedure 05/07/22 Pre-op Diagnosis Symptomatic Cholelithiasis Post-op Diagnosis Same Procedure Performed Laparoscopic Cholecystectomy Surgeon Fly Ferrer, DO Anesthesia General and Local (0.5% bupivacaine) Indications This is a 31-year-old woman who has been experiencing right upper quadrant pain for the past year. She has not identified any particular foods that worsened her pain. She had a gallbladder ultrasound done at [facility] on 01/05/2022 which showed evidence of cholelithiasis. She was seen and the office in December of 2021 discussions were made with the patient about proceeding with laparoscopic cholecystectomy. She did not want to proceed with surgery at that time. She then had a severe episode of pain about 1 month ago and presented to the emergency department at [facility]. CT showed evidence of cholelithiasis, but her white blood count and liver enzymes were normal. Patient called the office after being in the emergency department and wished to proceed with surgery. Decision was then made to proceed with laparoscopic cholecystectomy, possible open. Findings Laparoscopic cholecystectomy was performed. The gallbladder had some mild chronic wall thickening, but there was no evidence of acute cholecystitis. The cystic duct appeared normal in size. No other significant abnormalities were noted. The gallbladder was removed and sent to the lab for pathology. Description of Procedure Procedure as well as risks, benefits, and alternatives were discussed with patient. Written consent was obtained and placed in chart prior to procedure. The patient was brought back to surgical suite. Patient was placed in supine position on operating table. Time-out was done to confirm patient and procedure. Patient was then intubated by the anesthesia department. Abdomen was prepped and draped in sterile fashion using chlorhexidine prep. 0.5% bupivacaine with epinephrine was infiltrated at each site of incision. A 5 millimeter incision was made near the umbilicus, and a 5 millimeter Optiview trocar was advanced through the abdominal layers under direct visualization. Once inside the abdominal cavity, carbon dioxide was insufflated to create a pneumoperitoneum. The camera was inserted and the abdomen was inspected. No immediate abnormalities were identified. The patient was placed in reverse Trendelenburg position and rotated slightly to the left. An 11 millimeter incision was made in the subxiphoid region, and an 11 millimeter trocar was inserted under direct visualization. Two 5 millimeter incisions were made in the right upper quadrant, and two 5 millimeter trocars were inserted under direct visualization. The gallbladder was identified and grasped at the fundus and retracted superiorly. It was then grasped at the infundibulum retracted laterally. Careful dissection around the neck of the gallbladder was performed using blunt dissection with a [place] grasper and hook electrocautery. The cystic duct was identified, and a window was created behind it. The cystic artery was also identified and a window was created behind it. The critical view of safety was identified, visualizing the cystic duct running directly into the neck of the gallbladder, and the cystic artery running directly into the wall of the gallbladder. A 5 millimeter clip wireless manager was then used to place 2 clips proximally and 1 clip distally on both the cystic duct and cystic artery. They were then both transected using endoscopic scissors. Once safely away from the mason hepatitis, the gallbladder was dissected free from the liver bed using hook electrocautery. Hemostasis was achieved along the way. The gallbladder was removed completely and then removed through the subxiphoid port. The liver bed was then inspected. Hemostasis appeared adequate, and our clips appeared secure. The area was gently irrigated with sterile s
[2022-05-07] MEDS: fentaNYL CITRATE INJ (*CRX) 100 MCG/2 ML VIAL 25 MCG IV PUSH ×8 (14:53→15:32)
[2022-05-07] MEDS: HYDROmorphone HCL INJ (*CRX) 1 MG/ML SYR 0.5 MG IV PUSH (15:44)
[2022-05-07] MEDS: ONDANSETRON INJ 4 MG/2 ML VIAL IV PUSH (16:34)
[2022-05-07] MEDS: oxyCODONE HCL (*CRX) 5 MG TAB IR PO (16:35)
== END 2022-05-07 17:11 | disposition home or self-care (01) ==
PROVIDERS: PCP Nurse Practitioner Adult Health; Visit Provider Surgery
PROC: 0FT44ZZ Resection of Gallbladder, Percutaneous Endoscopic Approach (ICD-10-PCS; CPT 47562; principal; 2022-05-07 13:30)
DX: K80.10 Calculus of gallbladder with chronic cholecystitis without obstruction (principal); Z90.49 Acquired absence of other specified parts of digestive tract; F12.90 Cannabis use, unspecified, uncomplicated
CPT/HCPCS: 47562; 88304; A9270; J0690; J1100; J1170; J1885; J2250; J2405; J2704; J2710; J3010; J7030; J7120

== ENCOUNTER 2023-02-16 16:22 | Emergency (ER) | payer SELFPAY ==
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
[2023-02-16 16:58] VITALS: BP 111/73; PULSE 95; RESP 13; TEMP 36.6; O2SAT 98
--- NOTE | 2023-02-16 17:33 | ECG_ITS ---
Measurements Intervals [place] Rate: 72 P: 44 NV: 146 QRS: 36 QRSD: 94 T: 35 QT: 343 QTc: 377 Interpretive Statements SINUS RHYTHM NO PREVIOUS ECG AVAILABLE FOR COMPARISON Electronically Signed On 02-16-2023 20:01:31 CDT by Renetta Mari M.D.
[2023-02-16] MEDS: MORPHINE SULFATE (*CRX) 4 MG/ML INJ IV PUSH (17:44)
[2023-02-16 17:52] LABS: Basophils Absolute Auto 0.1 K/mm3 (0.0-0.1); Basophils Percent Auto 0.4 % (0.2-1.2); Eosinophils Absolute Auto 0.1 K/mm3 (0-0.3); Eosinophils Percent Auto 0.6 % (0-4.4); Hematocrit 40.3 % (37.0-47.0); Immature Granulocyte Absolute 0.07 K/mm3 (0.00-0.031); Immature Granulocyte Percent A 0.4 % (0-0.5); Lymphocytes Absolute Auto 1.23 K/mm3 (0.9-3.2); Lymphocytes Percent Auto 7.6 % (18.3-44.2); Mean Corpuscular HGB Conc 32.3 g/dl (32-36); Mean Corpuscular Hemoglobin 29.1 pg (26-34); Mean Corpuscular Volume 90.2 fl (80-100); Mean Platelet Volume 9.7 fl (7.4-10.4); Monocytes Absolute Auto 1.5 K/mm3 (0.1-0.6); Monocytes Percent Auto 9.1 % (2.6-8.5); Neutrophils Absolute Auto 13.3 K/mm3 (1.3-6.7); Neutrophils Percent Auto 81.9 % (45.5-73.1); Platelet Count Result 237 k/mm3 (150-375); Red Blood Count 4.47 M/mm3 (4.2-5.4); Red Cell Distribution Width 14.2 % (11.5-14.5); White Blood Count 16.2 K/mm3 (4.5-10.0)
[2023-02-16 18:03] LABS: INR 0.9; Partial Thromboplastin Time 27.6 SECONDS (22.3-36.8); Prothrombin Time 12.8 Seconds (11.1-14.7)
[2023-02-16 18:07] LABS: Alanine Aminotransferase 15 U/L (6-35); Albumin Level 4.3 g/dL (3.5-5.1); Alkaline Phosphatase 56 U/L (38-126); Anion Gap 5 mmol/L (8-16); Aspartate Amino Transferase 23 U/L (14-36); Bilirubin,Total 0.3 mg/dL (0.2-1.3); Blood Urea Nitrogen 14 mg/dL (7-17); Calcium 8.9 mg/dL (8.4-10.2); Carbon Dioxide 30 mmol/L (22-30); Chloride 103 mmol/L (98-107); Estimated CRCL calculation 79 ml/min; Estimated Glomerular Filt Rate > 60; Glucose 95 mg/dL (65-110); Lipase 78 U/L (23-300); Potassium 3.9 mmol/L (3.4-5.0); Sodium 138 mmol/L (137-145)
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
--- NOTE | 2023-02-16 19:16 | PC.NURSE ---
Per provider orders, CCollar removed at this time
[2023-02-16 20:23] VITALS: BP 110/62; PULSE 68; RESP 16; O2SAT 100
== END 2023-02-16 20:28 | disposition home or self-care (01) ==
PROVIDERS: Emergency Provider Emergency Medicine
DX: S99.911A Unspecified injury of right ankle, initial encounter (principal); S20.02XA Contusion of left breast, initial encounter; S30.1XXA Contusion of abdominal wall, initial encounter; S20.311A Abrasion of right front wall of thorax, initial encounter; Z87.442 Personal history of urinary calculi; Z90.49 Acquired absence of other specified parts of digestive tract; V47.6XXA Car passenger injured in collision with fixed or stationary object in traffic accident, initial encounter; W22.12XA Striking against or struck by front passenger side automobile airbag, initial encounter
CPT/HCPCS: 36415; 70450; 71260; 72125; 73610; 74177; 80053; 81025; 83690; 85025; 85610; 85730; 93005; 96374; 99284; J2270; L0140; Q9967

== ENCOUNTER 2023-06-08 11:52 | Outpatient (CLI) | payer BC, OTHER, SELFPAY ==
--- NOTE | ~2023-06-08 | XR_ITS ---
Right foot Technique: AP and lateral views were obtained. Clinical History: Pain Findings: No acute fracture or dislocation is seen. Osseous alignment is anatomic. Joint spaces are p reserved without erosive or degenerative change. Soft tissues are unremarkable. Impression: Unremarkable right foot radiographs. Reviewed, dictated and finalized at location . Impression: Unremarkable right foot radiographs.
--- NOTE | ~2023-06-08 | XR_ITS ---
Right ankle Technique: AP and lateral views were obtained. Clinical History: Pain Findings: No acute fracture or dislocation is seen. Osseous alignment is anatomic. Ankle mortise and other visualized joint spaces are preserved. Soft tissues are otherwise unremarkable. Impression: Unremarkable right ankle. Reviewed, dictated and finalized at location . Impression: Unremarkable right ankle.
== END 2023-06-08 11:53 | disposition home or self-care (01) ==
PROVIDERS: PCP Nurse Practitioner Adult Health; Visit Provider Nurse Practitioner Adult Health
DX: M79.671 Pain in right foot (principal)
CPT/HCPCS: 73600; 73620

== ENCOUNTER 2024-01-27 12:22 | Emergency (ER) | payer OTHER, SELFPAY ==
[2024-01-27 12:33] VITALS: BP 112/67; PULSE 68; RESP 16; TEMP 36.6; O2SAT 97
--- NOTE | 2024-01-27 12:44 | ED.EAR ---
HPI - Ear Problem General Chief complaint: Ear Stated complaint: Left Ear Problem Time Seen by Provider: 01/27/24 12:45 Source: patient Mode of arrival: ambulatory Limitations: no limitations History of Present Illness HPI Narrative: 33 yo F presents with c/o runny nose, PND, clogged sensation to L ear. Not taking any OTC meds to treat symptoms. Afebrile. All systems reviewed and negative except as noted above. Related Data Allergies Allergy/AdvReac Type Severity Reaction Status Date / Time No Known Allergies Allergy Unknown Verified 06/08/23 11:25 Review of Systems Review of Systems: CONSTITUTIONAL: Denies fever, chills, or sweats. EYES: Denies visual changes, redness, or discharge. ENT: Reports rhinorrhea, congestion, left ear clogged. Denies sore throat, or otalgia. CARDIOVASCULAR: Denies chest pain, palpitations, or edema. RESPIRATORY: Denies cough or dyspnea. GASTROINTESTINAL: Denies abdominal pain, nausea, vomiting, or diarrhea. GENITOURINARY: Denies dysuria or hematuria. SKIN: Denies rash or itching. MUSCULOSKELETAL: Denies back pain, joint pain, or myalgia. NEUROLOGIC: Denies headache, numbness, or weakness. PSYCHIATRIC: Denies anxiety or depression. All other systems reviewed are negative, except as documented in HPI. [facility] Past Medical History Medical History (Updated 01/27/24 @ 12:54 by Sandra Villarreal NP) Anxiety History of gestational diabetes Kidney stones Surgical History Surgical History (Updated 05/21/22 @ 10:09 by Emily Slater) History of laparoscopic cholecystectomy 05/07/2022 S/P adenoidectomy Family History Family History (Updated 04/27/23 @ 11:18 by Shahana Becerril MA) Unknown Diabetes mellitus Hypertension Cancer Allergies Mother Depression Sibling Depression Thyroid cancer Grandparent Hypertension Grandparent Cancer Diabetes mellitus Depression Social History Social History (Updated 04/27/23 @ 11:16 by Shahana Becerril MA) Smoking status: Never smoker Second hand tobacco smoke exposure: No Alcohol intake: never Substance use: current Substance use type: marijuana Other substance usage details: smokes it daily Lack of Transportation: No Lack of Food: Never True Current Housing: I Have Housing Concerned About Future Housing: No Difficulty Paying Gas/Electric Bills: No Difficulty Paying for Meds: YES Currently Unemployed: No Education: Trade/Vocational Certificate Difficulty w/ Childcare or Family Care: No Living arrangements: with family Gender identity (if verbalized by the patient): Female Spiritual care concerns: No Agree to blood products: Yes Comments At time of signature, agree with nursing past medical, surgical, social and family history. There is no relevant family history pertinent to the presenting complaint. Exam Narrative: GENERAL: This is a well-nourished, well-developed patient, in no apparent distress. HEAD: normocephalic, atraumatic. EYES: PERRL. Sclera clear/white. Vision is grossly intact. EARS: External ears normal, auditory canals clear and without drainage, clear fluid bilateral TMs without erythema or perforation. Hearing grossly intact. NOSE: External nose normal with clear nasal drainage. THROAT: Mucous membranes moist, postnasal drainage without erythema or swelling.. NECK: Neck supple, non-tender without lymphadenopathy, masses or thyromegaly. CARDIOVASCULAR: Regular rate and rhythm without murmurs, gallops, or rubs. RESPIRATORY: Clear to auscultation. Breath sounds equal bilaterally. No wheezes, rales, or rhonchi. SKIN: warm, Dry, intact with no suspicious lesions or rash, good texture and turgor. NEURO: awake, alert, and oriented to person, place and time. There were no obvious focal neurologic abnormalities. EXTREMITIES: No joint tenderness, effusion, or edema noted. Course Course Level of Care: Express Care Visit Vital Signs Vital signs:
== END 2024-01-27 13:00 | disposition home or self-care (01) ==
PROVIDERS: Emergency Provider Nurse Practitioner Family; PCP Nurse Practitioner Adult Health
DX: J01.90 Acute sinusitis, unspecified (principal); F12.90 Cannabis use, unspecified, uncomplicated
CPT/HCPCS: 99213; G0463

== ENCOUNTER 2024-08-18 10:34 | Emergency (ER) | payer OTHER, SELFPAY ==
[2024-08-18] VITALS (10 sets, daily range): BP systolic 103–133; BP diastolic 56–79; PULSE 53–76; RESP 13–20; TEMP 36.6; O2SAT 93–100
--- NOTE | ~2024-08-18 | CT_ITS ---
EXAMINATION: CT abdomen pelvis wo con DATE: 08/18/2024 11:59 INDICATION: Left flank pain. TECHNIQUE: Computed tomography (CT) of the abdomen and pelvis was performed without intravenous contr ast. Automated exposure control and iterative reconstruction technique were employed. The dose-length product was 194.10 mGy-cm. COMPARISON: CT abdomen and pelvis 02/16/2023 FINDINGS: The visualized portions of the lung bases are clear without pneumonia or pleural effusion. The heart size is normal. No pericardial effusion. The liver and spleen are normal. There are changes of cholecystectomy. The pancreas and adrenal glands are normal. There is a 5 mm stone in right kidne y. There is mild left hydronephrosis and hydroureter. There is a 4 mm stone in distal left ureter. Th ere is a 3 mm wall calcification in the anterior bladder. There are no dilated loops of bowel. The ap pendix is normal. There are no pathologically enlarged lymph nodes. There is no free intraperitoneal fluid. There is mild thoracic spondylosis. IMPRESSION: 1. 4 mm stone in distal left ureter with mild left hydronephrosis and hydroureter. 2. 5 mm nonobstructing right kidney stone. Reviewed, dictated and finalized at location A. INUITY COORDINATOR IMPRESSION: 1. 4 mm stone in distal left ureter with mild left hydronephrosis and hydrouret er. 2. 5 mm nonobstructing right kidney stone.
--- NOTE | 2024-08-18 10:57 | ED.ABDPAIN ---
HPI - Abdominal Pain General Chief Complaint: Abdominal Pain Stated Complaint: left flank pain Time Seen by Provider: 08/18/24 10:44 History of Present Illness HPI narrative: 33-year-old female with a past medical history including previous cholecystectomy. She presents to the emergency room with chief complaint of left-sided flank pain that was sudden onset about 2 hours prior to the arrival to the ED. She has been nauseous and vomiting nonstop since happen and exhibiting pain that starts radiating towards her left groin and center of her abdomen. Reported history of kidney stones. Patient is very uncomfortable appearing, pale and diaphoretic in the room. She is vomiting throughout the encounter. States she has never had anything like this happened or previously. No injuries, trauma recent illnesses. Denies any chest pain, shortness a breath, fever, headache, vision changes. Related Data Allergies Allergy/AdvReac Type Severity Reaction Status Date / Time No Known Allergies Allergy Unknown Verified 06/08/23 11:25 Review of Systems Review of Systems: As reviewed above in HPI [facility] Past Medical History Medical History Anxiety Kidney stones History of gestational diabetes Surgical History Surgical History History of laparoscopic cholecystectomy 05/07/2022 S/P adenoidectomy Family History Family History Unknown Diabetes mellitus Hypertension Cancer Allergies Mother Depression Sibling Depression Thyroid cancer Grandparent Hypertension Grandparent Cancer Diabetes mellitus Depression Social History Social History Smoking status: Never smoker Second hand tobacco smoke exposure: No Alcohol intake: never Substance use: current Substance use type: marijuana Other substance usage details: smokes it daily Lack of Transportation: No Lack of Food: Never True Current Housing: I Have Housing Concerned About Future Housing: No Difficulty Paying Gas/Electric Bills: No Difficulty Paying for Meds: YES Currently Unemployed: No Education: Trade/Vocational Certificate Difficulty w/ Childcare or Family Care: No Living arrangements: with family Gender identity (if verbalized by the patient): Female Spiritual care concerns: No Agree to blood products: Yes Exam Narrative: GENERAL: Uncomfortable appearing, full and clammy with diaphoresis the forehead but awake and answering questions HEAD: [Normocephalic, atraumatic.] EYES: [PERRLA and EOMI.] ENT: Nares clear, no rhinorrhea or epistaxis. Mucous membranes moist. NECK: Supple. CHEST: [Clear to auscultation. No respiratory distress.] HEART: [Regular rate and rhythm]. No murmur heard. [Normal peripheral pulses.] ABDOMEN: [Soft, nondistended], tenderness to palpation left CVA and left lower quadrant without any rebound or guarding, no signs of peritonitis EXTREMITIES: Normal range of motion. [No edema.] SKIN: Warm, dry, no rash. NEURO: [No focal deficits]. Alert and oriented [x3.] PSYCH: [Normal mood and affect.] Course Vital Signs Vital signs: Vital Signs Temperature 36.6 C 08/18/24 10:35 Pulse Rate 58 L 08/18/24 10:35 Respiratory Rate 20 08/18/24 10:35 Blood Pressure 129/79 08/18/24 10:35 Pulse Oximetry 98 08/18/24 10:35 Oxygen Delivery Room Air 08/18/24 10:35 Temperature 36.6 C 08/18/24 11:13 Pulse Rate 66 08/18/24 14:08 Respiratory Rate 16 08/18/24 14:08 Blood Pressure 106/68 08/18/24 14:08 Pulse Oximetry 98 08/18/24 14:08 Oxygen Delivery Room Air 08/18/24 10:35 MDM - Abdominal Pain MDM Narrative Medical decision making narrative: 33-year-old female presenting to the emergency room with sudden onset left-sided flank pain radiating towards her left abdomen. She is uncomfortable appearing, pooling plan to the touch, diaphoretic to the forehead, retching and vomiting throughout the encounter. She has reproducible tenderness in the left CVA and left lower quadrant. Vital signs are reassuring without any tachycardia, fever, hypoxia, blood pressure concerns. Given her broad onset of left lower quadrant and left flank pain considerations presently are for a kidney stone, renal colic, less likely kidney infection or pyelonephritis. 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 Patient was provided Dilaudid and Zofran for symptom control as well as fluid bolus for resuscitation given her nausea and vomiting. CBC, CMP, test, urinalysis and a CT scan without contrast was obtained. Workup showed no leukocytosis or anemia. Normal electrolytes and normal renal function panel. Negative test. Patient did receive an additional dose of Toradol and Flomax after her CT scan shows a 4 mm distal left ureter stone with very mild hydro. Urinalysis shows a leukocyte esterase, mostly red blood cells but occasional white blood cells, no seen bacteria but given her kidney stone we will treat this conservatively as a potential infection. She is given a dose of Bactrim p.o. and sent with a prescription. Patient was re-evaluated several times and had no recurrence for pain and felt significantly improved after the Toradol and Flomax. I went over the return precautions with the patient as well as the expectations with next several days including pain control, nausea control, Flomax and symptom management until the stone can be passed on its own and antibiotics for any infection. We went over return precautions including any intractable pain, worsening nausea, vomiting, development of fevers or any other new complaints and she should return to the nurses. We provided her with Urology to schedule follow-up appointments. Patient verbalized understanding all the instructions above and was safe for discharge home at this time. Medical Records Attestation: I reviewed the patient's medical records. Lab Data Attestation: I reviewed the patient's lab results. 08/18/24 11:03 08/18/24 11:03 Labs: Lab Results 08/18/24 08/18/24 08/18/24 Range/Units 11:03 11:27 11:38 WBC 9.9 (4.5-10.0) K/mm3 RBC 5.13 (4.2-5.4) M/mm3 Hgb 15.0 (12.0-15.0) g/dL Hct 45.6 (37.0-47.0) % MCV 88.9 (80-100) fl MCH 29.2 (26-34) pg MCHC 32.9 (32-36) g/dl RDW 13.3 (11.5-14.5) % Plt Count 270 (150-375) k/mm3 MPV 9.7 (7.4-10.4) fl Immature Gran % (Auto) 0.2 (0-0.5) % Neut % (Auto) 65.9 (45.5-73.1) % Lymph % (Auto) 23.2 (18.3-44.2) % [place] % (Auto) 7.4 (2.6-8.5) % Eos % (Auto) 2.8 (0-4.4) % Baso % (Auto) 0.5 (0.2-1.2) % Lymph # (Auto) 2.30 (0.9-3.2) K/mm3 [place] # (Auto) 0.7 H (0.1-0.6) K/mm3 Eos # (Auto) 0.3 (0-0.3) K/mm3 Baso # (Auto) 0.1 (0.0-0.1) K/mm3 Abs Immat Gran (auto) 0.02 (0.00-0.031) K/mm3 Absolute Neuts (auto) 6.5 (1.3-6.7) K/mm3 Absolute Nucleated RBC 0.000 (0.0-0.012) K/mm3 Nucleated RBC % 0.0 (0.0-0.2) % Sodium 138 (137-145) mmol/L Potassium 3.6 (3.4-5.0) mmol/L Chloride 107 (98-107) mmol/L Carbon Dioxide 21 L (22-30) mmol/L Anion Gap 10 (4-12) mmol/L BUN 14 (7-17) mg/dL Creatinine 0.70 (0.7-1.0) mg/dL Estim Creat Clear Calc 91 ml/min Estimated GFR > 60 (59 - ) Glucose 126 H (65-110) mg/dL Calcium 9.5 (8.4-10.2) mg/dL Total Bilirubin 0.6 (0.2-1.3) mg/dL AST 20 (14-36) U/L ALT 14 (6-35) U/L Alkaline Phosphatase 75 (38-126) U/L Total Protein 8.0 (6.3-8.2) g/dL Albumin 4.9 (3.5-5.1) g/dL Urine Color Yellow (Yellow) Urine Appearance Cloudy H (Clear) Urine pH 6.5 (5.0-9.0) Ur Specific [place] 1.017 (1.001-1.035) Urine Protein Trace (Negative) mg/dL Urine Glucose (UA) Negative (Negative) mg/dL Urine Ketones 1+ H (Negative) mg/dL Ur Blood (Man) 3+ H (Negative) Urine Nitrate Negative (Negative) Urine Bilirubin Negative (Negative) Urine Urobilinogen 0.2 (<2.0) mg/dL Leukocyte Esterase Rfl 1+ H (Negative) DEBORAH/UL Urine RBC >100 H (0-2) /hpf Urine WBC 6-10 H (0-3) /hpf Ur Squamous Epith Cells Few (Few) /hpf Urine Bacteria None seen /hpf Urine Casts 0-2 POC Urine HCG, Qual Negative (Negative) Imaging Data Attestation: I personally reviewed and interpreted this imaging study as follows: Radiologist's impression: ITS Impressions Abdomen/Pelvis CT 08/18/24 12:00 IMPRESSION: 1. 4 mm stone in distal left ureter with mild left hydronephrosis and hydroureter. 2. 5 mm nonobstructing right kidney stone. Discharge Plan Discharge Clinical Impression: Kidney stone on left side, Renal colic on left side Patient Disposition: Home, Self-Care Condition: Stable Instructions: Antibiotic Form, Kidney Stones (ED), How to Strain Your Urine (ED), Flank Pain (ED) Additional Instructions: Your CT scan shows a left-sided kidney stone in the distal ureter. Your urine does not have any bacteria but does have some markers that do resemble potential signs of mild infection. We have given you an antibiotic to take for the next 7 days in addition to regimen for pain control. Take Tylenol every few hours for pain control in addition to the as needed Toradol and oxycodone for breakthrough pain. We have given you Zofran for any nausea as well as Flomax which will help to attempt to flush out the stone. We provided you a urologist to follow-up with and please call and set up appointment in next several days if you are not experiencing any relief. If the pain becomes unbearable, you develop any fevers or intractable nausea, vomiting any other concerns please return to the emergency department at that time. Patient Language: Cameroonian Prescriptions: New sulfamethoxazole-trimethoprim [Bactrim DS] 800-160 mg tablet 1 tablet PO Q12H Qty: 14 0RF ketorolac 10 mg tablet 10 mg PO Q8H PRN (Reason: pain) 5 Days Qty: 20 0RF Rx Instructions: maximum total duration of 5 days from all oral, intranasal, or parenteral formulations tamsulosin [Flomax] 0.4 mg capsule 0.4 mg PO DAILY Qty: 20 0RF oxycodone 5 mg capsule 5 mg PO Q8H PRN (Reason: pain) 3 Days Qty: 14 0RF ondansetron 4 mg tablet,disintegrating 4 mg PO Q8H PRN (Reason: nausea and vomiting) Qty: 10 0RF No Action fluticasone propionate [Flonase Allergy Relief] 50 mcg/actuation spray,suspension 1 spray intranasal BID Qty: 16 0RF Rx Instructions: administer into each nostril loratadine [Claritin] 10 mg tablet 10 mg PO DAILY Qty: 30 0RF Follow-up/Referrals: Yifan Locke MD [Physician] - 1 Week (Kidney stone) Tricia Rodriguez APRN [Primary Care Provider] - Time of Disposition: 14:19
[2024-08-18] MEDS: LACTATED RINGERS 1,000 ML 999 ML IV CONT (11:00)
[2024-08-18] MEDS: HYDROmorphone HCL INJ (*CRX) 1 MG/ML SYR IV PUSH (11:00)
[2024-08-18] MEDS: ONDANSETRON INJ 4 MG/2 ML VIAL IV PUSH ×2 (11:02→12:15)
[2024-08-18 11:11] LABS: Basophils Absolute Auto 0.1 K/mm3 (0.0-0.1); Basophils Percent Auto 0.5 % (0.2-1.2); Eosinophils Absolute Auto 0.3 K/mm3 (0-0.3); Eosinophils Percent Auto 2.8 % (0-4.4); Hematocrit 45.6 % (37.0-47.0); Immature Granulocyte Absolute 0.02 K/mm3 (0.00-0.031); Immature Granulocyte Percent A 0.2 % (0-0.5); Lymphocytes Percent Auto 23.2 % (18.3-44.2); Mean Corpuscular HGB Conc 32.9 g/dl (32-36); Mean Corpuscular Hemoglobin 29.2 pg (26-34); Mean Corpuscular Volume 88.9 fl (80-100); Mean Platelet Volume 9.7 fl (7.4-10.4); Monocytes Absolute Auto 0.7 K/mm3 (0.1-0.6); Monocytes Percent Auto 7.4 % (2.6-8.5); Neutrophils Absolute Auto 6.5 K/mm3 (1.3-6.7); Neutrophils Percent Auto 65.9 % (45.5-73.1); Platelet Count Result 270 k/mm3 (150-375); Red Blood Count 5.13 M/mm3 (4.2-5.4); Red Cell Distribution Width 13.3 % (11.5-14.5); White Blood Count 9.9 K/mm3 (4.5-10.0)
[2024-08-18 11:20] LABS: Alanine Aminotransferase 14 U/L (6-35); Albumin Level 4.9 g/dL (3.5-5.1); Alkaline Phosphatase 75 U/L (38-126); Anion Gap 10 mmol/L (4-12); Aspartate Amino Transferase 20 U/L (14-36); Bilirubin,Total 0.6 mg/dL (0.2-1.3); Blood Urea Nitrogen 14 mg/dL (7-17); Calcium 9.5 mg/dL (8.4-10.2); Carbon Dioxide 21 mmol/L (22-30); Chloride 107 mmol/L (98-107); Estimated CRCL calculation 91 ml/min; Estimated Glomerular Filt Rate > 60; Glucose 126 mg/dL (65-110); Potassium 3.6 mmol/L (3.4-5.0); Sodium 138 mmol/L (137-145)
[2024-08-18 11:38] LABS: Add Urine Microscopic? YES; Appearance Urine Cloudy (Clear); Bacteria Urine None Seen /hpf; Bilirubin Urine Negative (Negative); Blood Urine 3+ (Negative); Color Urine Yellow (Yellow); Glucose Urine UA Negative (Negative); Ketones Urine 1+ mg/dL (Negative); Leukocyte Esterase Ur 1+ LEU/UL (Negative); Nitrate Urine Negative (Negative); Non Pathogenic Casts 0-2; Protein Urine Trace mg/dL (Negative); RBC Urine >100 /hpf (0-2); Specific Grav Ur 1.017 (1.001-1.035); Squamous Epithelial Cell Urine Few /hpf (Few); Urobilinogen Urine 0.2 mg/dL (<2.0); pH Urine 6.5 (5.0-9.0)
[2024-08-18 11:39] LABS: BEDSIDEPREGUCG Negative (Negative)
[2024-08-18] MEDS: KETOROLAC 15 MG/ML VIAL (*BKC) IV PUSH (12:16)
[2024-08-18] MEDS: TAMSULOSIN HCL 0.4 MG CAPSULE PO (12:17)
[2024-08-18] MEDS: SULFAMETHOXAZOLE/TRIMETHOPRIM 800/160 MG DS TABLET 1 TAB PO (14:27)
--- OUTSIDE RECORDS SUMMARY | 2024-08-25 14:15 | XMS_ITS | Data Portability ---
Author Organization [facility] [place] Address [address] [place] [address] Assessment Encounter Date Assessment Date Assessment LastModified by Organization Details LastModified Time 01/11/2022 01/11/2022 Annual gynecological exam performed. Patient will come back in a year unless there are new symptoms. Not available 01/07/2022 12:52:55 Plan of Treatment Reminders Order Date Submit Date Provider Last Modified By Organization Details Last Modified Time Details Appointments None recorded. Lab None recorded. Referral None recorded. Procedures None recorded. Surgeries None recorded. Imaging US, obstetric, biophysical profile + non-stress test [address], [facility] [address], [address], [place], [address], 20:52:48 US, doppler, umbilical artery velocimetry [address], [facility] [address], [address], [place], [address], 20:52:48 non-stress test [address], [address], [place], [address], 21:02:46 Medication Orders None recorded. Patient TargetsNo targets recorded. Patient InstructionsNo instructions recorded. Reason for Referral None Reported. Results Created Date Observation Date Name Description Value Unit Range Abnormal Flag Note LastModifiedBy Organization Detail LastModifiedTime 06/18/2006/18/2021 CBC W/DIF F WBC 11.6 10'3/ uL 3.6-10 .2 high Not Available [facility] (Lab) [address], [place], [address], 06/19/2021 01:47:26 06/18/20 21 06/18/2021 CBC W/DIF F RBC 4.10 10'6/ uL (based on docume nted legal sex) 4.10-5 .30 Not Available [facility] (Lab) [address], [place], [address], 06/19/2021 01:47:26 06/18/2006/18/2021 CBC W/DIF F HGB 11.6 g/dL (based on docume nted legal sex) 11.9-1 5.8 low Not Available [facility] (Lab) [address], [place], [address], 06/19/2021 01:47:26 06/18/2006/18/2021 CBC W/DIF F HCT 37.5 % (based on docume nted legal sex) 37.4-4 8.3 Not Available [facility] (Lab) [address], [place], [address], 06/19/2021 01:47:26 06/18/2006/18/2021 CBC W/DIF F MCV 91.0 fL 82.0-9 9.0 Not Available [facility] (Lab) [address], [place], [address], 06/19/2021 01:47:26 06/18/2006/18/2021 CBC W/DIF F MCH 28.0 pg 27.0-3 3.0 Not Available [facility] (Lab) [address], [place], [address], 06/19/2021 01:47:26 06/18/2006/18/2021 CBC W/DIF F MCHC 31.0 g/dL 32.0-3 6.0 low Not Available [facility] (Lab) [address] [facility], [place], [address], 06/19/2021 01:47:26 06/18/20 21 06/18/2021 CBC W/DIF F RDW 14.0 % 11.0-1 5.0 Not Available [facility] (Lab) [address] [facility], [place], [address], 06/19/2021 01:47:26 06/18/2006/18/2021 CBC W/DIF F plt 247 10'3/ uL 150-45 0 Not Available [facility] (Lab) [address] [facility], [place], [address], 06/19/2021 01:47:26 06/18/2006/18/2021 CBC W/DIF F MPV 12.1 fL 9.8-12 .7 Not Available [facility] (Lab) [address] [facility], [place], [address], 06/19/2021 01:47:26 06/18/2006/18/2021 CBC W/DIF F NRBC's 0.00 % 0 Not Available [facility] (Lab) [address] [facility], [place], [address], 06/19/2021 01:47:26 06/18/2006/18/2021 CBC W/DIF F absolute NRBCs 0.0 10'3/ uL 0 Not Available [facility] (Lab) [address] [facility], [place], [address], 06/19/2021 01:47:26 06/18/2006/18/2021 CBC W/DIF F neutrophils 73.0 % 37.0-7 2.0 high Not Available [facility] (Lab) [address] [facility], [place], [address], 06/19/2021 01:47:26 06/18/2006/18/2021 CBC W/DIF F lymphocytes 16.0 % 16.0-4 8.0 Not Available [facility] (Lab) [address] [facility], [place], [address], 06/19/2021 01:47:26 06/18/20 21 06/18/2021 CBC W/DIF F monocytes 8.0 % 4.0-14 .0 Not Available [facility] (Lab) [address] [facility], [place], [address], 06/19/2021 01:47:26 06/18/20 21 06/18/2021 CBC W/DIF F eosinophils 2.0 % 0.0-9. 0 Not Available [facility] (Lab) [address] [facility], [place], [address], 06/19/2021 01:47:26 06/18/2006/18/2021 CBC W/DIF F basophils 0.0 % 0.0-2. 0 Not Available [facility] (Lab) [address] [facility], [place], [address], 06/19/2021 01:47:26 06/18/2006/18/2021 CBC W/DIF F immature granulocytes 1.0 % no define d refere nce range Not Available [facility] (Lab) [address] [facility], [place], [address], 06/19/2021 01:47:26 06/18/2006/18/2021 CBC W/DIF F absolute neutrophils 8.4 10'3/ uL 1.1-6. 0 high Not Available [facility] (Lab) [address] [facility], [place], [address], 06/19/2021 01:47:26 06/18/20 21 06/18/2021 CBC W/DIF F absolute lymphocytes 1.9 10'3/ uL 0.7-3. 4 Not Available [facility] (Lab) [address] [facility], [place], [address], 06/19/2021 01:47:26 06/18/2006/18/2021 CBC W/DIF F absolute monocytes 0.9 10'3/ uL 0.3-1. 0 Not Available [facility] (Lab) [address] [facility], [place], [address], 06/19/2021 01:47:26 06/18/2006/18/2021 CBC W/DIF F absolute eosinophils 0.2 10'3/ uL 0.0-0. 6 Not Available [facility] (Lab) [address] [facility], [place], [address], 06/19/2021 01:47:26 06/18/2006/18/2021 CBC W/DIF F absolute basophils 0.0 10'3/ uL 0.0-0. 1 Not Available [facility] (Lab) [address] [facility], [place], [address], 06/19/2021 01:47:26 06/18/2006/18/2021 CBC W/DIF F absolute immature granulocytes 0.10 10'3/ uL 0.00-0 .10 06/19 12:29 AM: P indic ates parti al resul ts on a panel have been relea sed. Addit ional resul ts will follo w. 06/19 12:29 AM: This resul t has been final verif ied. No addit ional or mei ed resul ts are expec dustin. Not Available [facility] (Lab) [address] [facility], [place], [address], 06/19/2021 01:47:26 06/18/2006/18/2021 URIC ACID uric acid 4.1 mg/dL 2.3-6. 6 Not Available [facility] (Lab) [address] [facility], [place], [address], 06/19/2021 01:47:28 06/18/2006/18/2021 CMP(C OMPRE HENSI VE METAB OLIC PANEL ) sodium 138 mmol/ L 133-14 6 Not Available [facility] (Lab) [address] [facility], [place], [address], 06/19/2021 01:47:28 06/18/2006/18/2021 CMP(C OMPRE HENSI VE METAB OLIC PANEL ) potassium 4.0 mmol/ L 3.5-5. 1 Not Available [facility] (Lab) [address] [facility], [place], [address], 06/19/2021 01:47:28 06/18/2006/18/2021 CMP(C OMPRE HENSI VE METAB OLIC PANEL ) chloride 103 mmol/ L 98-107 Not Available [facility] (Lab) [address] [facility], [place], [address], 06/19/2021 01:47:28 06/18/2006/18/2021 CMP(C OMPRE HENSI VE METAB OLIC PANEL ) carbon dioxide 27 mmol/ L 21-31 Not Available [facility] (Lab) [address] [facility], [place], [address], 06/19/2021 01:47:28 06/18/2006/18/2021 CMP(C OMPRE HENSI VE METAB OLIC PANEL ) anion gap 8 mmol/ L 4-13 Not Available [facility] (Lab) [address] [facility], [place], [address], 06/19/2021 01:47:28 06/18/20 21 06/18/2021 CMP(C OMPRE HENSI VE METAB OLIC PANEL ) blood urea nitrogen 7 mg/dL 7-25 Not Available [facility] (Lab) [address] [facility], [place], [address], 06/19/2021 01:47:28 06/18/20 21 06/18/2021 CMP(C OMPRE HENSI VE METAB OLIC PANEL ) creatinine 0.62 mg/dL 0.60-1 .30 Not Available [facility] (Lab) [address] [place], [address], 06/19/2021 01:47:28 06/18/20 21 06/18/2021 CMP(C OMPRE HENSI VE METAB OLIC PANEL ) GFR () 136 mL/mi n/1.7 3_m2 60-300 Not Available [facility] (Lab) [address] [facility], [place], [address], 06/19/2021 01:47:28 06/18/2006/18/2021 CMP(C OMPRE HENSI VE METAB OLIC PANEL ) GFR (others) 112 mL/mi n/1.7 3_m2 60-300 Not Available [facility] (Lab) [address] [facility], [place], [address], 06/19/2021 01:47:28 06/18/2006/18/2021 CMP(C OMPRE HENSI VE METAB OLIC PANEL ) calcium 8.3 mg/dL 8.3-10 .5 Not Available [facility] (Lab) [address] [facility], [place], [address], 06/19/2021 01:47:28 06/18/2006/18/2021 CMP(C OMPRE HENSI VE METAB OLIC PANEL ) glucose 76 mg/dL 70-100 Not Available [facility] (Lab) [address] [facility], [place], [address], 06/19/2021 01:47:28 06/18/2006/18/2021 CMP(C OMPRE HENSI VE METAB OLIC PANEL ) protein, total 5.7 g/dL 6.4-8. 3 low Not Available [facility] (Lab) [address] [facility], [place], [address], 06/19/2021 01:47:28 06/18/20 21 06/18/2021 CMP(C OMPRE HENSI VE METAB OLIC PANEL ) albumin 3.4 g/dL 3.5-5. 0 low Not Available [facility] (Lab) [address] [facility], [place], [address], 06/19/2021 01:47:28 06/18/20 21 06/18/2021 CMP(C OMPRE HENSI VE METAB OLIC PANEL ) ALT 7 units /L 9-43 low Not Available [facility] (Lab) [address] [facility], [place], [address], 06/19/2021 01:47:28 06/18/2006/18/2021 CMP(C OMPRE HENSI VE METAB OLIC PANEL ) alkaline phosphatase 122 units /L 34-104 high Not Available [facility] (Lab) [address] [facility], [place], [address], 06/19/2021 01:47:28 06/18/2006/18/2021 CMP(C OMPRE HENSI VE METAB OLIC PANEL ) AST 11 units /L 13-39 low Not Available [facility] (Lab) [address] [facility], [place], [address], 06/19/2021 01:47:28 06/18/2006/18/2021 CMP(C OMPRE HENSI VE METAB OLIC PANEL ) bilirubin, total 0.3 mg/dL 0.2-1. 2 GFR([place] f[place] n Ameri can) is repor dustin as 21% great er than GFR(O ther) . The use of race in kidne y funct ion estim ating equat ions is no longe r recom karen d and may resul t in overe stima tion. In the near futur e an appro ach that disre gards race will be imple mente d. Not Available [facility] (Lab) [address] [facility], [place], [address], 06/19/2021 01:47:28 06/18/2006/18/2021 CULTU RE: GROUP B STREP SCREE N, REFLE X SUSCE PTIBI LITY result report SEE RESULT S BELOW abnormal Test: Cultu re: Group B Strep , Refle x Susce ptibi lity ([facility]/ [facility]/K H/[facility] ) Speci men Sourc e: Vagin a/Rec jess Speci men Type: Vagin al/Re ctal Speci men Date: 06/18 2:26 PM Resul t Date: 06/22 9:02 AM Resul t Statu s: Final resul t Abnor mal: Yes Resul ting Lab: [facility] [address] [facility] [address] Tel: CULTU RE ----- ----- ----- --- Posit rikki Strep tococ cus agala ctiae (Grou p B) (Abno rmal) Clind amyci n is presu med to be resis tant based on detec tion of induc ible clind amyci n resis tance ( D-t est posit rikki ) . Eryth romyc in = resis tant. Not Available [facility] (Lab) [address] [facility], [place], [address], 06/22/2021 10:06:09 01/12/20 22 01/11/2022 IMAGE GUIDE D PAP AND HPV REGAR DLESS image guided Pap, HPV regardless of Pap result SEE RESULT S BELOW CASE REPOR T: Cytol ogy Gynec ologi anh Repor t Case: [id number] Autho jess munson Provi mandy: Lizette Alvarez, TIMOTHY Saavedra cted: 01/11 1144 Order ing Locat ion: [place] [facility] Recei felix: 01/12 0036 First Scree n: Freda Lisa Speci men: Scree vidal Pap - Image d, Cervi x STATE MENT OF ADEQU ACY: Satis facto ry for evalu ation Trans forma tion zone compo nent prese nt FINAL DIAGN OSIS: Negat rikki for Intra epith elial Lv matias or [place] prather (NIL) . Elect nir hagen mona d by Freda Lisa on 2021 at 6:19 PM ----- ----- ----- ----- ----- ----- ----- ----- ----- ----- ----- ----- ----- ----- ----- ----- ----- ---- HPV RESUL TS: HPV mRNA E6/E7 : No HPV mRNA Detec dustin NOTE: This high risk HPV mRNA assay detec ts fourt een high- risk HPV types (16, 18, 31, 33, 35, 39, 45, 51, 52, 56, 58, 59, 66, 68) witho ut diffe renti ation . COMME NT: Note: This speci men was revie wed by a Cytot echno logis t and/o r Patho logis t (as indic ated in this repor t) after evalu ation using the Thinp rep Imagi ng Syste m. CLINI ANH INFOR MATIO N: Menst rual Statu s: LMP (if appli cable ): Clini anh Histo ry/Pr eviou s Pap: Type of Neopl galo (if appli cable ): Signi fican t Clini anh Findi ngs: Other Histo ry: Hormo shannon (if appli cable ): PAP EDUCA ABDIRAHMAN L NOTE: The Pap Test is a scree vidal test with an inher ent false negat rikki rate. Liqui d-bas ed sampl ing may decre ase, but will not elimi segun, false negat rikki resul ts. A negat rikki resul t does not precl ude the prese nce and/o r devel opmen t of disea se, since the prese nce of abnor mal cells in the sampl e depen ds on the locat ion of the lesio n and sampl ing techn ique. Octavio nued regul ar scree vidal is the best metho d of cance r preve ntion . If repor dustin cytol ogic findi ng do not corre late with physi anh and/o r histo rical findi ngs, furth er inves tigat ion is recom karen d, as clini hui madison nted. Not Available [facility] (Lab) [address], [place], [address], 01/15/2022 19:21:42 05/01/15/2022 HEMOG LOBIN A1C hemoglobin A1C 5.4 % 0-5.6 The Ameri can Diabe daniel [employer] iatio n recom mends that a prima ry goal of thera py shoul d be a HBA1C of < 7% and that physi cians shoul d reeva luate the treat ment regim en in patie nts with HBA1C value s consi stent ly > 8%. <5.7% Kathy l 5.7 - 6.4% Incre ased risk for diabe daniel >=6.5 % Diagn ostic of diabe daniel <7.0% Goal of thera py >8.0% Actio n sugge sted Not Available [facility] (Lab) [address], [place], [address], 01/16/2022 03:34:23 06/01/20 21 06/01/2021 non-s tress test No observ ation record ed. [email or web address], [place], [address], 06/01/2021 12:08:36 06/04/20 21 06/04/2021 non-s tress test No observ ation record ed. giuliano [address], [place], [address], 06/04/2021 11:16:47 06/08/2006/08/2021 non-s tress test No observ ation record ed. giuliano [place] [facility] [address], [place], [address], 06/08/2021 12:11:04 06/11/20 21 06/11/2021 non-s tress test No observ ation record ed. giuliano [place] [facility] [address], [place], [address], 06/11/2021 12:38:49 06/15/20 21 06/15/2021 non-s tress test No observ ation record ed. giuliano [place] [address], [place], [address], 06/15/2021 12:09:01 06/18/20 21 06/18/2021 non-s tress test No observ ation record ed. giuliano [place] [address], [place], [address], 06/18/2021 12:09:37 06/22/2006/22/2021 non-s tress test No observ ation record ed. giuliano [place] [address], [place], [address], 06/22/2021 12:00:55 06/25/2006/25/2021 non-s tress test No observ ation record ed. giuliano [place] [address], [place], [address], 06/25/2021 10:13:01 06/25/2006/25/2021 US, ted brinko w-up No observ ation record ed. [email or web address] [place] [address], [place], [address], 06/25/2021 10:45:17 06/25/2006/25/2021 US, tde brinko w-up No observ ation record ed. [email or web address] [address], [place], [address], 06/25/2021 15:09:50 06/29/2006/29/2021 non-s tress test No observ ation record ed. giuliano [place] [address], [place], [address], 06/29/2021 12:22:23 07/02/20 21 07/02/2021 US, obste tric, bioph ysica l profi le + non-s tress test No observ ation record ed. [email or web address] [place] [address], [place], [address], 07/02/2021 13:00:03 07/02/20 21 07/02/2021 US, doppl er, umbil ical arter y veloc imetr y No observ ation record ed. [email or web address] [place] [address], [place], [address], 07/02/2021 12:59:51 07/02/20 21 07/02/2021 US, obste tric, bioph ysica l profi le + non-s tress test No observ ation record ed. DAYANNA [address], [place], [address], 07/04/2021 13:25:36 07/02/20 21 07/02/2021 non-s tress test No observ ation record ed. giuliano [place] [address], [place], [address], 07/02/2021 12:58:09 07/06/20 21 07/06/2021 non-s tress test No observ ation record ed. giuliano [place] [address], [place], [address], 07/06/2021 12:14:09 Result Notes None recorded. Problems Name Problem SNOMED Code Status Onset Date Resolution Date Notes Provider Name and Address Organization Details Recorded Time Normal pregnanc y in multigra la [id number] 4106 Completed 201812/08/2020 Encounte r for suprvsn of normal pregnanc y, first trimeste r;Practi ce ID: 0001 Lexi winslow [facility] 16:46:37 Antenata l maureenin g Completed 201812/08/2020 Encounte r for other specifie d antenata l screenin g;Practi ce ID: 0001 Lexi winslow, [facility] 16:46:10 Antenata l screenin g for malforma tion Completed 201812/08/2020 Encounte r for antenata l screenin g for malforma tions;Pr actice ID: 0001 Lexi winslow, [facility] 16:46:11 Gestatio n period, 25 weeks [id number] Completed 201812/08/2020 25 weeks gestatio n of pregnanc y;Practi ce ID: 0001 Lexi winslow, [facility] 16:46:21 Gestatio n period, 28 weeks [id number] Completed 201812/08/2020 28 weeks gestatio n of pregnanc y;Practi ce ID: 0001 Lexi winslow, [facility] 16:46:[address] Concept Completed 201812/08/2020 Matern care for abnlt fetl hrt rate or rhym, 3rd tri, unsp;Pra ctice ID: 0001 Lexi winslow, [facility] 16:46:46 Anomaly of placenta Completed 201812/08/2020 Other malforma tion of placenta , third trimeste r;Practi ce ID: 0001 Lexi winslow, [facility] 16:46:08 Gestatio n period, 32 weeks [id number] Completed 201812/08/2020 32 weeks gestatio n of pregnanc y;Practi ce ID: 0001 Lexi Angulo nayla, [facility] 16:46:24 Gestatio n period, 10 weeks [id number] Completed 201812/08/2020 10 weeks gestatio n of pregnanc y;Record ed Elsewher e: No Locat ion: [facility] S ource: EHR Regulatory Compliance Officer abel: N Practi ce ID: 0001 Harrison lable Time: 10:00:00 AM Lexi winslow, [facility] 16:46:20 Secondar y amenorrh ea [id number] Completed 201712/08/2020 Secondar y amenorrh ea;Pract ice ID: 0001 Lexi winslow, [facility] 16:46:42 Pregnanc y detectio n examinat ion Completed 201712/08/2020 Encounte r for pregnanc y test, result positive ;Practic e ID: 0001 Lexi winslow, [facility] 16:46:40 Missed miscarri age [id number] Completed 201712/08/2020 Missed ;Practic e ID: 0001 Lexi winslow, [facility] 16:46:36 Finding of contents of cervix 017151235 Completed 201712/08/2020 Weeks of gestatio n of pregnanc y not specifie d;Practi ce ID: 0001 Lexi winslow, [facility] 16:46:17 Pregnanc y test negative [id number] Completed 201712/08/2020 Encounte r for pregnanc y test, result negative ;Practic e ID: 0001 Lexi winslow, [facility] 16:46:41 Gestatio n less than 9 weeks [id number] Completed 201812/08/2020 Less than 8 weeks gestatio n of pregnanc y;Practi ce ID: 0001 Lexi winslow, [facility] 16:46:18 Complica tion of pregnanc y, childbir th and/or puerperi um [id number] Completed 201812/08/2020 Oth diseases and conditio ns compl preg/chl dbrth;Pr actice ID: 0001 Lexi winslow, [facility] 16:46:50 Pelvic and perineal pain [id number] Completed 201812/08/2020 Pelvic and perineal pain;Pra ctice ID: 0001 Lexi winslow, [facility] 16:46:38 Evaluati on finding Completed 201812/08/2020 Hematuri a, unspecif ied;Prac alanna ID: 0001 Lexi winslow, [facility] 16:46:14 Gestatio n period, 8 weeks [id number] Completed 201812/08/2020 8 weeks gestatio n of pregnanc y;Practi ce ID: 0001 Lexi winslow, [facility] 16:46:32 Gestatio n period, 33 weeks [id number] Completed 201812/08/2020 33 weeks gestatio n of pregnanc y;Record ed Elsewher e: No Locat ion: [facility] S ource: EHR Regulatory Compliance Officer abel: N Practi ce ID: 0001 Harrison lable Time: 01:00:00 PM Lexi winslow [facility] 16:46:25 Lochia finding Completed 201812/08/2020 Encounte r for routine postpart um follow-u p;Record ed Elsewher e: No Locat ion: [facility] S ource: EHR Regulatory Compliance Officer abel: N Practi ce ID: 0001 Harrison lable Time: 11:15:00 AM Lexi winslow [facility] 16:46:34 Gestatio n period, 37 weeks [id number] Completed 201812/08/2020 37 weeks gestatio n of pregnanc y;Record ed Elsewher e: No Locat ion: [facility] S ource: EHR Regulatory Compliance Officer abel: N Sandyti ce ID: 0001 Harrison lable Time: 02:00:00 PM Lexi winslow [facility] 16:46:31 Gestatio n period, 36 weeks [id number] Completed 201812/08/2020 36 weeks gestatio n of pregnanc y;Record ed Elsewher e: No [facility] S ource: EHR Regulatory Compliance Officer abel: N Sandyti ce ID: 0001 Harrison lable Time: 02:00:00 PM Lexi winslow [facility] 16:46:30 Gestatio n period, 35 weeks [id number] Completed 201812/08/2020 35 weeks gestatio n of pregnanc y;Record ed Elsewher e: No [facility] S ource: EHR Regulatory Compliance Officer abel: N Practi ce ID: 0001 Harrison lable Time: 11:30:00 AM Lexi winslow, [facility] 16:46:28 Gestatio n period, 34 weeks [id number] Completed 201812/08/2020 34 weeks gestatio n of pregnanc y;Record ed Elsewher e: No Locat ion: [facility] S ource: EHR Regulatory Compliance Officer abel: N Practi ce ID: 0001 Harrison lable Time: 03:00:00 PM Lexi winslow [facility] 16:46:27 Educatio n Completed 201812/08/2020 Encounte r for other general counseli ng and advice on contrace ption;Re corded Elsewher e: No Locat ion: [facility] S ource: EHR Regulatory Compliance Officer abel: N Practi ce ID: 0001 Harrison lable Time: 11:15:00 AM Lexi winslow, [facility] 16:46:[address] Concept Completed 201812/08/2020 Encntr for general adult medical exam w/o abnormal findings ;Recorde d Elsewher e: No Locat ion: [facility]cox [facility] S ource: EHR Regulatory Compliance Officer abel: N Practi ce ID: [id number] Harrison lable Time: 10:15:00 AM Lexi winslow, [facility] 16:46:[address] Concept Completed 201812/08/2020 Encntr for parole officer exam (general ) (routine ) w/o abn findings ;Recorde d Elsewher e: No Locat ion: [facility]iah wilcox [facility] S ource: EHR Regulatory Compliance Officer abel: N Practi ce ID: [id number] Harrison lable Time: 10:15:00 AM Lexi winslow, [facility] 16:46:48 Umbilicu s finding Completed 201812/08/2020 Labor and delivery complica dustin by oth cord comp, unsp;Pra ctice ID: [id number] Lexi winslow, [facility] 16:46:51 finding Completed 201812/08/2020 Matern care for oth or susp poor fetl grth, third tri, unsp;Pra ctice ID: [id number] Lexi winslow, [facility] 16:46:15 Single live [id number] Completed 201812/08/2020 Single live ;Pr actice ID: [id number] Lexi winslow, [facility] 16:46:44 Pregnanc y [id number] Completed 202007/16/2021 Sandra Lau hl null, [facility] 1 14:41:11 History of growth retardat ion [id number] Completed h/o IUGR with 2 VC - 10/28 u/s shows low NL growth 13% 5#8z Sandra Solimantie hl null, [facility] 1 14:41:04 HELLP syndrome [id number] Completed first preg - on ASA Sandra Solimantie hl null, [facility] 1 14:41:05 Cyst of right ovary [id number] Completed 5cm simple. torsion precauti ons given. Sandra Solimantie hl null, [facility] 1 14:41:05 HELLP syndrome 64590100 Active first preg - on ASA Sandra Solimantie hl null, [facility] 1 14:41:05 Cyst of right ovary [id number] 610207 Active 5cm simple. torsion precauti ons given. Sandra Solimantie hl null, [facility] 1 14:41:05 History of growth retardat ion 95853144161 108 Active h/o IUGR with 2 VC - 10/28 u/s shows low NL growth 13% 5#8z Sandra Solimantie hl null, [facility] 1 14:41:04 Gestatio nal diabetes mellitus 20636956 Completed INSULIN now - 8u Sandra Solimantie hl null, [facility] 1 14:41:05 Problem Notes None recorded. Procedures Surgical History Date Name Laterality Status Provider Name and Address Organization Details Recorded Time 12/08/2020 Date of Last Pap Smear completed Lexi Angulo [facility] 12/08/2020 17:47:04 Imaging Results Imaging Date Name Status LastModified by Organ ation Details LastModified Time 06/01/2021 non-stress test completed [email or web address] [facility] [address], [place], [address], 06/01/2021 12:08:36 06/04/2021 non-stress test completed giuliano [address], [place], [address], 06/04/2021 11:16:47 06/08/2021 non-stress test completed giuliano [facility] [address], [place], [address], 06/08/2021 12:11:04 06/11/2021 non-stress test completed giuliano [address], [place], [address], 06/11/2021 12:38:49 06/15/2021 non-stress test completed giuliano [facility] [address], [place], [address], 06/15/2021 12:09:01 06/18/2021 non-stress test completed giuliano [address], [place], [address], 06/18/2021 12:09:37 06/22/2021 non-stress test completed giuliano [address], [place], [address], 06/22/2021 12:00:55 06/25/2021 non-stress test completed [address], [place], [address], 06/25/2021 10:13:01 06/25/2021 US, obstetric, [email or web address] [address], [place], [address], 06/25/2021 10:45:17 06/25/2021 US, obstetric, follow-up completed [email or web address] [facility] [address], [place], [address], 06/25/2021 15:09:50 06/29/2021 non-stress test completed giuliano Orting [facility] [address], [place], [address], 06/29/2021 12:22:23 07/02/2021 US, obstetric, biophysical profile + non-stress test completed [address] [facility] [address], [place], [address], 07/02/2021 13:00:03 07/02/2021 US, doppler, umbilical artery velocimetry completed [address] [facility] [address], [place], [address], 07/02/2021 12:59:51 07/02/2021 US, obstetric, biophysical profile + non-stress test completed DAYANNA [facility] [address], [place], [address], 07/04/2021 13:25:36 07/02/2021 non-stress test completed giuliano [address], [place], [address], 07/02/2021 12:58:09 07/06/2021 non-stress test completed giuliano Orting [facility] [address], [place], [address], 07/06/2021 12:14:09 Procedure Notes None recorded. Medical Equipment None Reported. Allergies No known drug allergies Medications Name Sig Start Date Stop Date Status Note LastModified by Organization Details LastModified Time relion insulin syringe 31g x 5/16 relion insulin syringe 31g x 5/16 0.3 ml misc 07/31 completed Not Available Not Available Not Available Novolin N NPH U-100 Insulin isophane 100 unit/mL subcutane ous susp 07/31 completed Not Available Not Available Not Available omeprazol e 40 mg capsule,d elayed release TAKE 1 CAPSULE BY MOUTH EVERY DAY active Not Available Not Available No t Available Macrobid 100 mg capsule take 1 capsule by oral route every 12 hours with food 11/06 completed Prescrib ed Elsewher e: No [facility] By: sandra Vaughan r DateTime : 10/16/19 19 01:02:41 PM Not Available Not Available Not Available misoprost ol [address] four tablets in the vagina 09/06 completed Prescrib ed Elsewher e: No [facility]at [facility] By: sandra Vaughan r DateTime : 03/28/20 18 04:30:00 PM Not Available Not Available Not Available insulin syringe U-100 with needle 0.3 mL 31 gauge x 5/16 07/31 completed Not Available Not Available Not Available aspirin 08/06 completed Not Available Not Available Not Available active Not Available Not Avai lable Not Available FreeStyle [place] kit test bloodsug ars 4x daily 07/31 completed Not Available Not Available Not Available FreeStyle Lite Strips 07/31 completed Not Available Not Available Not Available Blisovi Fe 09/17 (28) 1 mg-20 mcg (21)/75 mg (7) tablet take 1 tablet by oral route every day 12/08 completed Prescrib ed Elsewher e: No Locat ion: [facility] odify By: pio mane DateTime : 05/07/20 11:15:00 AM Not Available Not Available Not Available Vitals Date Recorded Body height Body mass index (BMI) Body weight Systolic blood pressure Diastolic blood pressure Provider Name and Address Organization Details Last Updated DateTime 07/02/2021 167.64 cm 24.4 kg/m2 36593.44 787 g 105 mm[Hg] 69 mm[Hg] Lexi Angulo [facility] 12:04:08 Date Recorded Body height Systolic blood pressure Diastolic blood pressure Provider Name and Address Organization Details Last Updated DateTime 07/06/2021 167.64 cm 122 mm[Hg] 73 mm[Hg] Lexi Angulo [facility] 07/06/2021 12:09:52 Date Recorded Body weight Provider Name an d Address Organization Details Last Updated DateTime 07/06/2021 56163.12402 g Kaci Adame [facility] 07/06/2021 15:19:51 Date Recorded Systolic blood pressure Diastolic blood pressure Provider Name and Address Organization Details Last Updated DateTime 07/06/2021 122 mm[Hg] 73 mm[Hg] Antonio Leigh [facility] 07/06/2021 11:38:44 Date Recorded Body height Body mass index (BMI) Body weight Systolic blood pressure Diastolic blood pressure Provider Name and Address Organization Details Last Updated DateTime 08/06/2021 167.64 cm 23.6 kg/m2 32282.49 g 102 mm[Hg] 69 mm[Hg] Lexi Angulo [facility] 09:53:19 Date Recorded Body height Body mass index (BMI) Body weight Systolic blood pressure Diastolic blood pressure Provider Name and Address Organization Details Last Updated DateTime 01/11/2022 167.64 cm 23.4 kg/m2 46897.89 g 118 mm[Hg] 73 mm[Hg] Myriam Vicente [facility] 11:56:59 Social History Question Answer Notes LastModified by Organizat ion Details LastModified Time Tobacco Smoking Status Never Smoker Kelly winslow [facility] 03/03/2021 15:13:35 Do You Have An Advance Directive? No [email or web address] Information n ot available 03/03/2021 What Is Your Level Of Alcohol Consumption? None [email or web address] Information not available 03/03/2021 Are You Blind Or Do You Have Difficulty Seeing? No [email or web address] Information n ot available 03/03/2021 What Is Your Level Of Caffeine Consumption? Heavy [email or web address] Information not available 03/03/2021 How Much Tobacco Do You Chew? None [email or web address] Information not available 03/03/2021 In The 14 Days Before Symptom Onset, Have You Had Close Contact With A Laboratory-confirm ed COVID-19 While That Case Was Ill? No [email or web address] Information n ot available 03/03/2021 In The 14 Days Before Symptom Onset, Have You Had Close Contact With A Person Who Is Under Investigation For COVID-19 While That Person Was Ill? No [email or web address] Information not available 03/03/2021 Have You Been To An Area Known To Be High Risk For COVID-19? No [email or web address] Information not available 03/03/2021 Are You Deaf Or Do You Have Serious Difficulty Hearing? No [email or web address] Information not available 03/03/2021 What Type Of Diet Are You Following? REGULAR [email or web address] Information n ot available 03/03/2021 What Is The Highest Grade Or Level Of School You Have Completed Or The Highest Degree You Have Received? [id number] [email or web address] Information not available 03/03/2021 Are There Any Guns Present In Your Home? No [email or web address] Information not available 03/03/2021 Do You Use Protection During Sex? No Information not available 03/03/2021 Do You Use Your Seat Belt Or Car Seat Routinely? Yes [email or web address] Information not available 03/03/2021 Do You Have Smoke And Carbon Monoxide Detectors In Your Home? Yes [email or web address] Information not available 03/03/2021 How Much Tobacco Do You Smoke? No [email or web address] Information not available 03/03/2021 Do You Feel Stressed (tense, Restless, Nervous, Or Anxious, Or Unable To Sleep At Night)? [id number] [email or web address] Information not available 03/03/2021 Do You Use Any Illicit Or Recreational Drugs? No [email or web address] Information not available 03/03/2021 Do You Use Sunscreen Routinely? Yes Information not available 03/03/2021 Have You Used IV Drugs? No [email or web address] Information not available 03/03/2021 Sex: Unknown Functional Status Question Answer Note LastModified by Organizat ion Details LastModified Time Do you have difficulty walking or climbing stairs? No Information not available 01/11/2022 Are you able to walk? YESWOREST [email or web address] Information not available 03/03/2021 Are you able to care for yourself? Yes Information not available 01/11/2022 Do you have difficulty dressing or bathing? No Information not available 01/11/2022 What is your exercise level? Moderate Information not available 03/03/2021 Mental Status None recorded. Family History Relationship Description Onset Age of this Age Resolved Age Notes LastModified by Organization Details LastModified Time Maternal Grandfather Hypercholest erolemia [email or web address] Not available 2020 15:14:24 Maternal Grandmother Hypertensive disorder [email or web address] Not available 2020 15:14:40 Mother Hypertensive disorder [email or web address] Not available 2020 15:14:53 Maternal Uncle Malignant neoplasm of urinary bladder [email or web address] Not available 2020 14:43:29 Paternal Grandmother Diabetes mellitus [email or web address] Not available 2020 15:15:31 Sister Disorder of thyroid gland [email or web address] Not available 2020 15:15:42 Medical History Condition Response Allergies (Food, seasonal, environmental ) N Other Y Breast Cancer N Drug/Latex Allergies/Reactions N Blood Transfusion N Dermatologic Disorders N Lung Disease N Defects or Inherited Disease N Breast Problem N Gestational Diabetes N Hematologic disorders N Anesthesia Complications N History of STI N Deep Vein Thrombosis N Polycystic ovary syndrome N Anxiety Disorder Y Autoimmune disease N Arthritis N Infertility N Polyps N Acid Reflux (GERD) N Cancer N Stroke N Varicosities N Neurologic/Epilepsy N Endometriosis N High Cholesterol N Headaches Y Fibromyalgia N Kidney Disease N Heart Problems N Kidney or Bladder Problems N Thyroid Problems N GI Problems N Eating Disorder N Anemia N Art (IVF or FET) N Psychiatric Illness N Ovarian Cancer N Diabetes Y Pulmonary (TB, Asthma) N Hepatitis/Liver Disease N No Past Medical History N Eczema N Urinary Tract Infection N Abuse/Domestic Violence N Asthma N Trauma/Violence N Depression/ depression N Heart Disease N Pre-Eclampsia N Hypertension N Osteoporosis N Thrombophilias N Gynecological History Statement/Question Response Abnormal Pap N Flow Moderate Date of LMP 12/16/2021 On BCP's at Conception? N Was last menstrual period normal N STIs/STDs N HPV Vaccine Y Duration of Flow (days) 7 Current Control Method None Age at First Child 19 Are cycles usually normal N Sexually Active? Y Menses Monthly N Date of Last Pap Smear 12/08/2020 Sexual Problems? N Desired Control Method None LMP Definite Obstetrics History GPAL:G 4 P 3 0 1 3 Type Value Full Term 3 Spontaneous 1 Living 3 Total 4 Past Encounters Encounter ID Performer Location Encounter Start Date Encounter Closed Date Diagnosis/Indication Diagnosis SNOMED-CT Code Diagnosis ICD10 Code [id number] [facility] [address],[place] [address] 11/27/2020 17:24:27 12/01/2020 13:40:52 Uncertain viability of 720488243 O36.80X0 Z3A.01 [id number] [facility] eTrrazasileana [facility] [address],[place] [address] 12/09/2020 14:27:38 12/09/2020 16:08:48 Gynecologic examination 63874017 Z01.419 test positive 134341080 Z32.01 [id number] Rhonda Dahl [facility] [address],[place] [address] 12/09/2020 14:24:23 12/09/2020 23:45:02 [id number] [facility] [address],[place] [address] 01/06/2021 14:43:14 01/06/2021 15:34:27 screening 573116985 Z36.82 [id number] Bibi Vaughn MD [facility] [address] [place] [address] 01/06/2021 14:43:43 01/06/2021 15:34:40 Routine care 543693559 Z34.91 Cyst of right ovary 1223 523440 3350500 N83.201 History of growth retardation 5338918834 9108 Z87.59 HELLP syndrome 23002138 O14.25 [id number] [facility] [address],[place] [address] 02/03/2021 15:19:39 02/03/2021 17:50:35 Routine care 702720497 Z34.92 [id number] [facility] [address],[place] [address] 03/03/2021 13:59:34 03/03/2021 15:43:37 Routine care 465325256 Z34.92 [id number] [facility] [address],[place] [address] 03/03/2021 13:58:21 03/03/2021 14:51:01 screening for malformation 324991845 Z36.3 [id number] [facility] [address],[place] [address] 04/01/2021 16:12:07 04/01/2021 18:23:12 Routine care 571952382 Z34.92 [id number] [facility] [address],[place] [address] 04/30/2021 11:52:11 05/04/2021 22:27:10 [id number] Bibi Vaughn MD [facility] [address],[place] [address] 05/13/2021 11:23:15 05/13/2021 13:47:21 History of growth retardation 8424275539 9108 Z87.59 Gestationa l diabetes mellitus class A1 11736516 O24.410 [id number] [facility] [address],[place] [address] 05/19/2021 11:59:06 05/19/2021 14:39:13 Gestational diabetes mellitus class A1 49795672 O24.410 [id number] [facility] [address],[place] [address] 05/28/2021 12:16:47 06/01/2021 20:09:35 Routine care 829600088 Z34.92 [id number] Nayeli Benito [facility] [address],[place] [address] 05/28/2021 11:51:34 05/28/2021 13:37:57 Gestational diabetes mellitus class A1 77555879 O24.410 Z3A.32 [id number] [facility] [address],[place] [address] 05/28/2021 11:52:05 05/28/2021 14:06:19 Gestational diabetes mellitus class A1 18475656 O24.410 [id number] [facility] [address],[place] [address] 06/01/2021 11:27:14 06/01/2021 12:58:25 Gestational diabetes mellitus class A1 06445371 O24.410 [id number] [facility] [address],[place] [address] 06/04/2021 10:35:37 06/04/2021 11:17:37 Gestational diabetes mellitus class A1 94190647 O24.410 [id number] Sergio Birmingham MD [facility] [address],[place] [address] 06/04/2021 10:36:24 06/04/2021 11:37:55 Routine care 022136560 Z34.83 [id number] [facility] [address],[place] [address] 06/08/2021 11:32:22 06/08/2021 12:26:31 Gestational diabetes mellitus class A1 85032088 O24.410 [id number] [facility] [address],[place] [address] 06/09/2021 16:59:40 06/15/2021 18:12:08 Gestational diabetes mellitus class A2 42558054 O24.414 [id number] Kaci Adame [facility] [address],[place] [address] 06/11/2021 11:57:15 06/12/2021 14:04:53 Routine care 005394870 Z34.92 Gestationa l diabetes mellitus 67715642 O24.414 [id number] [facility] [address],[place] [address] 06/11/2021 11:58:12 06/11/2021 12:52:23 Gestational diabetes mellitus class A1 05145968 O24.410 [id number] [facility] [address],[place] [address] 06/15/2021 11:31:36 06/15/2021 12:31:07 Gestational diabetes mellitus class A2 34209275 O24.414 [id number] [facility] [address],[place] [address] 06/18/2021 11:35:21 06/18/2021 15:03:22 Routine care 112740467 Z34.92 - induced hypertension 03543291 O13.9 [id number] [facility] [address],[place] [address] 06/18/2021 11:34:11 06/18/2021 13:10:43 Gestational diabetes mellitus class A2 93930757 O24.414 [id number] [facility] [address],[place] [address] 06/22/2021 11:32:16 06/22/2021 12:29:52 Gestational diabetes mellitus class A2 14161284 O24.414 [id number] [facility] [address] [place] [address] 06/25/2021 09:31:31 06/25/2021 11:48:58 Routine care 259518831 Z34.92 [id number] [address] [place] [address] 06/25/2021 09:31:07 06/25/2021 10:24:26 Gestational diabetes mellitus class A1 26689181 O24.414 Z3A.36 [id number] [facility] [address] [place] [address] 06/25/2021 09:31:08 06/25/2021 10:15:02 Gestational diabetes mellitus class A2 40404761 O24.414 [id number] [facility] [address],[place] [address] 06/29/2021 11:31:59 06/29/2021 12:32:13 Gestational diabetes mellitus class A2 38484262 O24.414 [id number] [facility] [address],[place] [address] 07/02/2021 11:29:02 07/02/2021 16:04:45 Routine care 865394234 Z34.92 [id number] [facility] [address],[place] [address] 07/02/2021 11:28:24 07/02/2021 12:29:53 Small for gestational age fetus 012462312 O36.5930 O24.410 Z3A.37 [id number] [facility] [address],[place] [address] 07/02/2021 11:29:25 07/02/2021 13:23:41 Gestational diabetes mellitus class A2 36265907 O24.414 [id number] [facility] [address],[place] [address] 07/06/2021 11:34:09 07/07/2021 12:42:36 Routine care 659853681 Z34.92 [id number] [facility] [address],[place] [address] 07/06/2021 11:33:13 07/06/2021 12:32:34 Gestational diabetes mellitus class A2 52091910 O24.414 [id number] [facility] [address],[place] [address] 08/06/2021 09:47:20 08/06/2021 10:33:06 state 94454376 Z39.2 [id number] ROSANNA Mederos [facility] [address],[place] [address] 01/11/2022 11:24:38 01/11/2022 14:44:56 Gynecologic examination 23778450 Z01.419 Z11.51 Health Concerns Section Related Observation LastModified by Organization Detai ls LastModified Time None Recorded Concern Status LastModified by Organization Details LastModified Time None Recorded Advance Directives Directive N: Payers Encounter Date Sequence Insurance Name Policy Number Policy Sousa Covered Member ID Sousa Member ID Guarantor Name 07/02/2021 1 [place] [id number] Sandro Alvarez Freiner [id number] Laisha Freiner 07/06/2021 1 [place] [id number] Sandro Alvarez Freiner [id number] Laisha Freiner 07/06/2021 1 [place] [id number] Sandro Alvarez Freiner [id number] Laisha Freiner 08/06/2021 1 [place] [id number] Sandro Alvarez Freiner [id number] Laisha Freiner 01/11/2022 1 [place] [id number] Christophmariah Freiner [id number] Laisha Freiner Notes Date Note Type Note Provider Name and Address Organization Details Recorded Time 08/06/2021 text/html VisitReported bypatient.Associate d Symptoms:no abnormal bleeding; no vaginal discharge; no pelvic pain; laceration well healed; no constipation; no fecal incontinence; no dysuria; no urinary incontinence; no fever; no problems; no mastitis; normal mood Kaci winslow [facility] 08/06/2021 10:12:16 01/11/2022 text/html Annual GYNReport ed bypatient.Menstrual cycle:Normal menses Urinary symptoms:No hematuria; No incontinence Vulva:No genital lesion Vagina:Normal vaginal discharge Breast:No breast pain; No breast lump; No nipple discharge Current Contraception: control not practiced Sexual complaints:No sexual complaints; No pain during intercourse; Normal libido Menopausal Symptoms:No menopausal symptoms; Normal vaginal lubrication Psychological symptoms:No depression; No anxiety; No PMDD Preventive measures:Encourage self breast examination; Encourage regular exercise; Encourage no tobacco use; Encourage regular mammograms starting age 40 ROSANNA Mederos [address] [place], [address], [place] [facility] 01/11/2022 14:38:37 OBGyn Episode Ob Episode Information Episode Created Date Number of Fetuses Patient Bloodtype Patient rh Status Prepregnancy Weight lbs Domestic Partner Domestic Partner Phone Father Name Venue Coordinator Status 01/07/20 21 1 A Positive 156 CLOSED Fetus Data First Name Last Name Admitted to NICU Weight (g) Sex Living Outcome Pediatric Complications Fetus ID Race Codes Race Delivery Type 2636.50 35 F true Full Term 9782 Vaginal Delivery Problems Problem Notes declines COVID vaccine Problem Name Start Date End Date Resolution Snomed Code Not e Gestational diabetes mellitus 58416793 INSULIN no w - 8u History of growth retardation 32120088452387 h/o IUG R with 2 VC - 06/25 u/s shows low NL growth 13% 5#8z HELLP syndrome 47868602 first preg - on ASA Cyst of right ovary 90458894162482037 5cm simple . torsion precautions given. Pablo Calculation PABLO Calculation Method Initial Pablo Date Initial Exam Date Initial Exam Provider Initial Ultrasound Date Last Menstrual Period Date Ultra Sound Weeks Gestation Conception by IVF Embryo Age at Transfer Date of Transfer 07/19/20 21 01/07/20 21 11/27/2020 10/12/2020 5 Eighteen To Twenty Week Pablo Update Ultra Sound Date Fundal Height At Umbil Quickening Date Ultra Sound Latest Weeks Gestation Final Pablo Confirmed By Final Pablo Confirmed Date Final Pablo Date Ultra Sound Latest Days Gestation 0 [email or web address] 01/06/2021 07/19/20 21 0 Pre-mat Flowsheet Flowsheet Date 01/06/2021 Rosales Score Blood Edema Fundus Height Fundus Units Glucose Ketones Leukocytes Nitrite Labor Signs Protein Cervic Dilation Cervic Effacement Cervic Station neg none trace Type Weight in lbs Pre/Post Dialysis Refused Weight 153.894902545583 BP Diastolic BP Location Tested BP Systolic BP Type 61 95 Fetus Heart Rate Present A 150 Fetus Movement A No Comments Laisha is a 30yo for care. Past pregnancies complicated by (G1) HELLP, 36w (G2) IUGR, 2VC, 37w. Is taking ASA, as she did last . No cHTN component. Will do growth US for h/o IUGR. Has GERD- discussed OTCs. Labs today. Declines CF/SMA. US today normal NT. 5cm simple right ovarian cyst- torsion precautions given. Routine care. Flowsheet Date 02/03/2021 Rosales Score Blood Edema Fundus Height Fundus Units Glucose Ketones Leukocytes Nitrite Labor Signs Protein Cervic Dilation Cervic Effacement Cervic Station none 16 trace Type Weight in lbs Pre/Post Dialysis Refused Weight 148.267031681526 BP Diastolic BP Location Tested BP Systolic BP Type 64 98 Fetus Heart Rate Present A 152 Fetus Movement A No Comments Doing well. Declines afp. Ge rd improving. Taking baby aspirin daily. Flowsheet Date 03/03/2021 Rosales Score Blood Edema Fundus Height Fundus Units Glucose Ketones Leukocytes Nitrite Labor Signs Protein Cervic Dilation Cervic Effacement Cervic Station Type Weight in lbs Pre/Post Dialysis Refused BP Diastolic BP Location Tested BP Systolic BP Type Fetus Heart Rate Present Fetus Movement Comments Flowsheet Date 03/03/2021 Rosales Score Blood Edema Fundus Height Fundus Units Glucose Ketones Leukocytes Nitrite Labor Signs Protein Cervic Dilation Cervic Effacement Cervic Station neg none trace Type Weight in lbs Pre/Post Dialysis Refused Weight 145.4477200699 BP Diastolic BP Location Tested BP Systolic BP Type 72 113 Fetus Heart Rate Present Fetus Movement A Yes Comments Occasional n&v but has signi ficantly improved. Doing well. Baseline anatomy today. Flowsheet Date 04/01/2021 Rosales Score Blood Edema Fundus Height Fundus Units Glucose Ketones Leukocytes Nitrite Labor Signs Protein Cervic Dilation Cervic Effacement Cervic Station neg none 24 trace Type Weight in lbs Pre/Post Dialysis Refused Weight 149.000912002290 BP Diastolic BP Location Tested BP Systolic BP Type 61 93 Fetus Heart Rate Present A 155 Fetus Movement A Yes Comments patient is having some nause a. doing well, plan gct next visit, f/u 4 weeks Flowsheet Date 04/30/2021 Rosales Score Blood Edema Fundus Height Fundus Units Glucose Ketones Leukocytes Nitrite Labor Signs Protein Cervic Dilation Cervic Effacement Cervic Station none 27 trace Type Weight in lbs Pre/Post Dialysis Refused Weight 148.465672456077 BP Diastolic BP Location Tested BP Systolic BP Type 75 112 Fetus Heart Rate Present A 130 Fetus Movement A Yes Comments Doing well. Is taking baby a spirin. Encouraged tdap and flu shot. Also discussed acog recommendation for covid vaccine in . Flowsheet Date 05/13/2021 Rosales Score Blood Edema Fundus Height Fundus Units Glucose Ketones Leukocytes Nitrite Labor Signs Protein Cervic Dilation Cervic Effacement Cervic Station neg trace 28 trace Type Weight in lbs Pre/Post Dialysis Refused Weight 151.778767489184 BP Diastolic BP Location Tested BP Systolic BP Type 70 108 Fetus Heart Rate Present A 150 Fetus Movement A Yes Comments Feeling well. Will do growth next visit for h/o IUGR. Will get Tdap, declines COVID vaccine. Instead of 3 hr has been checking sugars. All pp normal, but more than half fastings elevated, highest 114. Will continue checking sugars and schedule diet teaching. Flowsheet Date 05/19/2021 Rosales Score Blood Edema Fundus Height Fundus Units Glucose Ketones Leukocytes Nitrite Labor Signs Protein Cervic Dilation Cervic Effacement Cervic Station Type Weight in lbs Pre/Post Dialysis Refused BP Diastolic BP Location Tested BP Systolic BP Type Fetus Heart Rate Present Fetus Movement Comments Flowsheet Date 05/28/2021 Rosales Score Blood Edema Fundus Height Fundus Units Glucose Ketones Leukocytes Nitrite Labor Signs Protein Cervic Dilation Cervic Effacement Cervic Station Type Weight in lbs Pre/Post Dialysis Refused BP Diastolic BP Location Tested BP Systolic BP Type Fetus Heart Rate Present Fetus Movement Comments Flowsheet Date 05/28/2021 Rosales Score Blood Edema Fundus Height Fundus Units Glucose Ketones Leukocytes Nitrite Labor Signs Protein Cervic Dilation Cervic Effacement Cervic Station none trace Type Weight in lbs Pre/Post Dialysis Refused Weight 149.556551297856 BP Diastolic BP Location Tested BP Systolic BP Type 70 120 Fetus Heart Rate Present Fetus Movement A Yes Comments Doing well. Occasional contr actions. PTL precautions. Encouraged tdap. Blood sugars look ok. She did have 3 elevated fastings in the last week. Pt has been following carb counting. Not consistently eating evening snack. Discussed high protein evening snack and evening walk. If these do not improve fbs we will discuss next step. Pt will bring in her log Tuesday for review. Flowsheet Date 05/28/2021 Rosales Score Blood Edema Fundus Height Fundus Units Glucose Ketones Leukocytes Nitrite Labor Signs Protein Cervic Dilation Cervic Effacement Cervic Station Type Weight in lbs Pre/Post Dialysis Refused BP Diastolic BP Location Tested BP Systolic BP Type Fetus Heart Rate Present Fetus Movement Comments Flowsheet Date 06/01/2021 Rosales Score Blood Edema Fundus Height Fundus Units Glucose Ketones Leukocytes Nitrite Labor Signs Protein Cervic Dilation Cervic Effacement Cervic Station Type Weight in lbs Pre/Post Dialysis Refused Weight 152.239549827363 BP Diastolic BP Location Tested BP Systolic BP Type 69 107 Fetus Heart Rate Present Fetus Movement Comments Flowsheet Date 06/04/2021 Rosales Score Blood Edema Fundus Height Fundus Units Glucose Ketones Leukocytes Nitrite Labor Signs Protein Cervic Dilation Cervic Effacement Cervic Station Type Weight in lbs Pre/Post Dialysis Refused BP Diastolic BP Location Tested BP Systolic BP Type Fetus Heart Rate Present Fetus Movement Comments Flowsheet Date 06/04/2021 Rosales Score Blood Edema Fundus Height Fundus Units Glucose Ketones Leukocytes Nitrite Labor Signs Protein Cervic Dilation Cervic Effacement Cervic Station 33 Type Weight in lbs Pre/Post Dialysis Refused Weight 149.648641906668 BP Diastolic BP Location Tested BP Systolic BP Type 70 R arm 118 sitting Fetus Heart Rate Present A 145 Fetus Movement Comments Sugars are well controlled, there a couple of events where she ate too much. Reactive NST today, recent growth ultrasound. Flowsheet Date 06/08/2021 Rosales Score Blood Edema Fundus Height Fundus Units Glucose Ketones Leukocytes Nitrite Labor Signs Protein Cervic Dilation Cervic Effacement Cervic Station Type Weight in lbs Pre/Post Dialysis Refused BP Diastolic BP Location Tested BP Systolic BP Type 69 R arm 107 sitting Fetus Heart Rate Present Fetus Movement Comments Flowsheet Date 06/09/2021 Rosales Score Blood Edema Fundus Height Fundus Units Glucose Ketones Leukocytes Nitrite Labor Signs Protein Cervic Dilation Cervic Effacement Cervic Station Type Weight in lbs Pre/Post Dialysis Refused BP Diastolic BP Location Tested BP Systolic BP Type Fetus Heart Rate Present Fetus Movement Comments Flowsheet Date 06/11/2021 Rosales Score Blood Edema Fundus Height Fundus Units Glucose Ketones Leukocytes Nitrite Labor Signs Protein Cervic Dilation Cervic Effacement Cervic Station none trace Type Weight in lbs Pre/Post Dialysis Refused Weight 153.254092109441 BP Diastolic BP Location Tested BP Systolic BP Type 70 113 Fetus Heart Rate Present Fetus Movement A Yes Comments Doing good. Started insulin 2 days ago. Yesterday all numbers great. Today her fasting was 99. Pt will call us tomorrow morning to updated us on her fasting. Flowsheet Date 06/11/2021 Rosales Score Blood Edema Fundus Height Fundus Units Glucose Ketones Leukocytes Nitrite Labor Signs Protein Cervic Dilation Cervic Effacement Cervic Station Type Weight in lbs Pre/Post Dialysis Refused BP Diastolic BP Location Tested BP Systolic BP Type Fetus Heart Rate Present Fetus Movement Comments Flowsheet Date 06/15/2021 Rosales Score Blood Edema Fundus Height Fundus Units Glucose Ketones Leukocytes Nitrite Labor Signs Protein Cervic Dilation Cervic Effacement Cervic Station Type Weight in lbs Pre/Post Dialysis Refused BP Diastolic BP Location Tested BP Systolic BP Type 66 R arm 103 sitting Fetus Heart Rate Present Fetus Movement Comments Flowsheet Date 06/18/2021 Rosales Score Blood Edema Fundus Height Fundus Units Glucose Ketones Leukocytes Nitrite Labor Signs Protein Cervic Dilation Cervic Effacement Cervic Station Type Weight in lbs Pre/Post Dialysis Refused BP Diastolic BP Location Tested BP Systolic BP Type Fetus Heart Rate Present Fetus Movement Comments Flowsheet Date 06/18/2021 Rosales Score Blood Edema Fundus Height Fundus Units Glucose Ketones Leukocytes Nitrite Labor Signs Protein Cervic Dilation Cervic Effacement Cervic Station none trace 1cm 50% Type Weight in lbs Pre/Post Dialysis Refused Weight 154.730446478219 BP Diastolic BP Location Tested BP Systolic BP Type 69 111 Fetus Heart Rate Present Fetus Movement A Yes Comments Blood sugars improved. Only 1 slightly elevated fasting since increase in insulin. Occasional contractions. GBS collected.History of hellp @ 36 weeks with 1st . No symptoms. Will check labs today. Flowsheet Date 06/22/2021 Rosales Score Blood Edema Fundus Height Fundus Units Glucose Ketones Leukocytes Nitrite Labor Signs Protein Cervic Dilation Cervic Effacement Cervic Station Type Weight in lbs Pre/Post Dialysis Refused BP Diastolic BP Location Tested BP Systolic BP Type 71 R arm 107 sitting Fetus Heart Rate Present Fetus Movement Comments Flowsheet Date 06/25/2021 Rosales Score Blood Edema Fundus Height Fundus Units Glucose Ketones Leukocytes Nitrite Labor Signs Protein Cervic Dilation Cervic Effacement Cervic Station Type Weight in lbs Pre/Post Dialysis Refused BP Diastolic BP Location Tested BP Systolic BP Type Fetus Heart Rate Present Fetus Movement Comments Flowsheet Date 06/25/2021 Rosales Score Blood Edema Fundus Height Fundus Units Glucose Ketones Leukocytes Nitrite Labor Signs Protein Cervic Dilation Cervic Effacement Cervic Station Type Weight in lbs Pre/Post Dialysis Refused BP Diastolic BP Location Tested BP Systolic BP Type Fetus Heart Rate Present Fetus Movement Comments Flowsheet Date 06/25/2021 Rosales Score Blood Edema Fundus Height Fundus Units Glucose Ketones Leukocytes Nitrite Labor Signs Protein Cervic Dilation Cervic Effacement Cervic Station none trace 3cm 30% -2 Type Weight in lbs Pre/Post Dialysis Refused Weight 157.169029529441 BP Diastolic BP Location Tested BP Systolic BP Type 68 112 Fetus Heart Rate Present Fetus Movement A Yes Comments Doing well. Occasional contr actions. Encouraged pre admit. Growth u/s today. Await recommendations. Flowsheet Date 06/29/2021 Rosales Score Blood Edema Fundus Height Fundus Units Glucose Ketones Leukocytes Nitrite Labor Signs Protein Cervic Dilation Cervic Effacement Cervic Station Type Weight in lbs Pre/Post Dialysis Refused BP Diastolic BP Location Tested BP Systolic BP Type 70 R arm 108 sitting Fetus Heart Rate Present Fetus Movement Comments Flowsheet Date 07/02/2021 Rosales Score Blood Edema Fundus Height Fundus Units Glucose Ketones Leukocytes Nitrite Labor Signs Protein Cervic Dilation Cervic Effacement Cervic Station Type Weight in lbs Pre/Post Dialysis Refused BP Diastolic BP Location Tested BP Systolic BP Type Fetus Heart Rate Present Fetus Movement Comments Flowsheet Date 07/02/2021 Rosales Score Blood Edema Fundus Height Fundus Units Glucose Ketones Leukocytes Nitrite Labor Signs Protein Cervic Dilation Cervic Effacement Cervic Station none trace 3cm 50% -2 Type Weight in lbs Pre/Post Dialysis Refused Weight 151.676804439274 BP Diastolic BP Location Tested BP Systolic BP Type 69 105 Fetus Heart Rate Present Fetus Movement A Yes Comments Doing well. BS good. In the last 2 weeks she has had 1 elevated fasting and 2 elevated pp. Viewed log on phone. Labor precautions. No h/a, v/d or e/p. Flowsheet Date 07/02/2021 Rosales Score Blood Edema Fundus Height Fundus Units Glucose Ketones Leukocytes Nitrite Labor Signs Protein Cervic Dilation Cervic Effacement Cervic Station Type Weight in lbs Pre/Post Dialysis Refused BP Diastolic BP Location Tested BP Systolic BP Type Fetus Heart Rate Present Fetus Movement Comments Flowsheet Date 07/06/2021 Rosales Score Blood Edema Fundus Height Fundus Units Glucose Ketones Leukocytes Nitrite Labor Signs Protein Cervic Dilation Cervic Effacement Cervic Station Type Weight in lbs Pre/Post Dialysis Refused BP Diastolic BP Location Tested BP Systolic BP Type 73 R arm 122 sitting Fetus Heart Rate Present Fetus Movement Comments Flowsheet Date 07/06/2021 Rosales Score Blood Edema Fundus Height Fundus Units Glucose Ketones Leukocytes Nitrite Labor Signs Protein Cervic Dilation Cervic Effacement Cervic Station none trace 3cm 70% -2 Type Weight in lbs Pre/Post Dialysis Refused Weight 152.052691353283 BP Diastolic BP Location Tested BP Systolic BP Type 73 122 Fetus Heart Rate Present Fetus Movement A Yes Comments Doing well. Is carrie b ut not uncomfortable. Labor precautions. Induction scheduled. Menstrual History Last Menstrual Date Menses Monthly On Bcp Conception Prior Menses Frequency Hcg Plus Date Menarche Onset Age 0210/12/2020 Genetic Screening And Infection History Question Response Note Mental Retardation/Autism false Patient's Age Will Be 35 Years Or Older At Estim ated Date of Delivery false Thalassemia ([place], Citizen Of [place], Mediterranean, Or Background): MCV < 80 false Neural Tube Defect (Meningomyelocele, Spina Bifi da, Or Anencephaly) false Congenital Heart Defect false Down Syndrome false Arturo-Sachs (eg, Taoism, Cajun, Vincentian-Pettis) f alse Mickey Disease false Sickle Cell Disease Or Trait () false Hemophilia Or Other Blood Disorders false Muscular Dystrophy false Cystic Fibrosis false Mcpherson's Chorea false Intellectual Disability/Autism false If Yes, Was Person Tested For Fragile X? false Other Inherited Genetic Or Chromosomal Disorder false Maternal Metabolic Disorder (eg, Type 1 Diabetes , PKU) false Patient Or Baby's Father Had A Child With Defects Not Listed Above false Recurrent Loss, Or A Stillbirth false Medications (including Suppl ements, Vitamins, Herbs, OTC Drugs), Illicit/Recreational Drugs, Alcohol false If Yes, Agent(s) And Strength/Dosage false Any Other Genetic History false Live With Someone With TB Or Exposed To TB false Patient Or Partner Has History Of Genital Herpes false Rash Or Viral Illness Since Last Menstrual Perio d false History Of STD, Gonorrhea, Chlamydia, HPV, Syphi lis false Other Infection History false History of HIV false History of Hepatitis false Prior GBS-infected child false Hemoglobinopathy Or Carrier false Other Structural Defect false Recent Travel History Outside of Country false Delivery Information Delivery Date Delivery Type Labor Anesthesia Weeks Gestation Incision Type Labor Labor Length Hrs Delivered By Post Complications Tubal Sterilization Discharge Date Comments 1 Augmen dustin None 38.2 false Kaci Adame CNM GDM & Gbs+ & IUGR Discharge Information Feeding Method Contraceptive Method Maternal HG B and HCT Levels Ob Episode Information Episode Created Date Number of Fetuses Patient Bloodtype Patient rh Status Prepregnancy Weight lbs Domestic Partner Domestic Partner Phone Father Name Venue Coordinator Status 12/10/19 21 1 CLOSED Fetus Data First Name Last Name Admitted to NICU Weight (g) Sex Living Outcome Pediatric Complications Fetus ID Race Codes Race Delivery Type , Spontane ous [id number] Pablo Calculation PABLO Calculation Method Initial Pablo Date Initial Exam Date Initial Exam Provider Initial Ultrasound Date Last Menstrual Period Date Ultra Sound Weeks Gestation Conception by IVF Embryo Age at Transfer Date of Transfer 0 Eighteen To Twenty Week Pablo Update Ultra Sound Date Fundal Height At Umbil Quickening Date Ultra Sound Latest Weeks Gestation Final Pablo Confirmed By Final Pablo Confirmed Date Final Pablo Date Ultra Sound Latest Days Gestation 0 0 Menstrual History Last Menstrual Date Menses Monthly On Bcp Conception Prior Menses Frequency Hcg Plus Date Menarche Onset Age Delivery Information Delivery Date Delivery Type Labor Anesthesia Weeks Gestation Incision Type Labor Labor Length Hrs Delivered By Post Complications Tubal Sterilization Discharge Date Comments 8 Discharge Information Feeding Method Contraceptive Method Maternal HG B and HCT Levels Ob Episode Information Episode Created Date Number of Fetuses Patient Bloodtype Patient rh Status Prepregnancy Weight lbs Domestic Partner Domestic Partner Phone Father Name Venue Coordinator Status 12/10/19 21 1 CLOSED Fetus Data First Name Last Name Admitted to NICU Weight (g) Sex Living Outcome Pediatric Complications Fetus ID Race Codes Race Delivery Type 2381.35 8 F Prematur e [id number] Vaginal Delivery Pablo Calculation PABLO Calculation Method Initial Pablo Date Initial Exam Date Initial Exam Provider Initial Ultrasound Date Last Menstrual Period Date Ultra Sound Weeks Gestation Conception by IVF Embryo Age at Transfer Date of Transfer 0 Eighteen To Twenty Week Pablo Update Ultra Sound Date Fundal Height At Umbil Quickening Date Ultra Sound Latest Weeks Gestation Final Pablo Confirmed By Final Pablo Confirmed Date Final Pablo Date Ultra Sound Latest Days Gestation 0 0 Menstrual History Last Menstrual Date Menses Monthly On Bcp Conception Prior Menses Frequency Hcg Plus Date Menarche Onset Age Delivery Information Delivery Date Delivery Type Labor Anesthesia Weeks Gestation Incision Type Labor Labor Length Hrs Delivered By Post Complications Tubal Sterilization Discharge Date Comments 1 36 hellp Discharge Information Feeding Method Contraceptive Method Maternal HG B and HCT Levels Ob Episode Information Episode Created Date Number of Fetuses Patient Bloodtype Patient rh Status Prepregnancy Weight lbs Domestic Partner Domestic Partner Phone Father Name Venue Coordinator Status 12/10/19 21 1 CLOSED Fetus Data First Name Last Name Admitted to NICU Weight (g) Sex Living Outcome Pediatric Complications Fetus ID Race Codes Race Delivery Type [id number] M Full Term [id number] Vaginal Delivery Pablo Calculation PABLO Calculation Method Initial Pablo Date Initial Exam Date Initial Exam Provider Initial Ultrasound Date Last Menstrual Period Date Ultra Sound Weeks Gestation Conception by IVF Embryo Age at Transfer Date of Transfer 0 Eighteen To Twenty Week Pablo Update Ultra Sound Date Fundal Height At Umbil Quickening Date Ultra Sound Latest Weeks Gestation Final Pablo Confirmed By Final Pablo Confirmed Date Final Pablo Date Ultra Sound Latest Days Gestation 0 0 Menstrual History Last Menstrual Date Menses Monthly On Bcp Conception Prior Menses Frequency Hcg Plus Date Menarche Onset Age Delivery Information Delivery Date Delivery Type Labor Anesthesia Weeks Gestation Incision Type Labor Labor Length Hrs Delivered By Post Complications Tubal Sterilization Discharge Date Comments 9 37 Discharge Information Feeding Method Contraceptive Method Maternal HG B and HCT Levels
--- OUTSIDE RECORDS SUMMARY | 2024-08-25 14:16 | XMS_ITS | Encounter Summary ---
Author Organization [facility] Address [address] [place] [address] Care Team Providers Care Track Laying Equipment Operator Name Role Phone Haley Henriquez APRN-ENGINEERING DIRECTOR Primary Care Provider [phone] Reason for Referral * Consultation (Routine) - Closed Specialty Diagnoses / Procedures Referred By Anthony t Referred To Contact Maternal Medicine Diagnoses History of HELLP syndrome, currently ([facility]) Supervision of high-risk of young multigravida ([facility]) Two vessel umbilical cord, antepartum ([facility]) Procedures AMB CONSULT TO MATERNAL MEDICOrlin Bowen MD [address] [place] [address] [facility] [address] [place] [address] Referral ID Status Reason Start Date Expiration Date Visits Re quested Visits Authorized [id number] Closed 02/26/2019 08/25/2019 1 1 Reason for Visit * Reason Comments Ultrasound Consultation * Evaluate & Treat (Routine) - Closed Specialty Diagnoses / Procedures Referred By Contac t Referred To Contact Maternal Medicine Diagnoses Supervision of other high risk pregnancies, unspecified trimester ([facility]) Maternal care for other specified problems, unspecified trimester, not applicable or unspecified ([facility]) Supervision of with other poor reproductive or obstetric history, unspecified trimester ([facility]) Procedures AL FULL ROUT OBSTE CARE,VAGINAL DELIV Orlin Birmingham MD [address] [place] [address] [facility] [address] [place] [address] Referral ID Status Reason Start Date Expiration Date Visits Re quested Visits Authorized [id number] Closed 02/28/2019 08/27/2019 20 20 Encounter Details Date Type Department Care Team (Latest Contact Info) Description 02/28/2019 10:26 AM CDT - 02/28/2019 11:59 PM CDT Hospital Encounter [facility] [address] [id number] Dary Cui MD [facility] [address] [address] Discharge Disposition: Home or Self Care Social History Tobacco Use Types Packs/Day Years Used Date Smoking Tobacco: Never Smokeless Tobacco: Never Tobacco Cessation:Counseling Given: Yes Alcohol Use Standard Drinks/Week Comments No 0 (1 standard drink = 0.6 oz pur e alcohol) Comments Yes Sex and Gender Information Value Date Recorded Sex Assigned at Not on file Gender Identity Not on file Sexual Orientation Not on file documented as of this encounter Last Filed Vital Signs Vital Sign Reading Time Taken Comments Blood Pressure 100/59 02/28/2019 11:29 AM CDT Pulse 76 02/28/2019 11:29 AM CDT Temperature - - Respiratory Rate - - Oxygen Saturation - - Inhaled Oxygen Concentration - - Weight 67.9 kg (149 lb 9.6 oz) 02/28/2019 11:29 AM CDT Height 162.6 cm (5' 4 ) 02/28/2019 11:31 AM CDT Body Mass Index 25.68 02/28/2019 11:29 AM CDT documented in this encounter Medications at Time of Discharge Medication Sig Dispensed Refills Start Date End Date aspirin (ASPIRIN) 81 MG tablet Take 81 mg by mouth once daily ferrous sulfate 325 (65 FE) MG tablet Take 325 mg by mouth once daily Vit-Fe Fumarate-FA ( VITAMIN) 28-0.8 MG tablet Take 1 tablet by mouth once daily documented as of this encounter Progress Notes * Marguerite Garnica APRN-CNP - 02/28/2019 11:31 AM CDT Pt. Presents for consult r/t h/o pre eclampsia. Denies any LOF, VB, reg CTX''s or abdominal pain. Denies URIOSTEGUI, visual changes, RUQ pain or swelling. Pt verbalizes feeling movement. Reviewed hoe to preform FKC's documented in this encounter Consult Notes * Dary Cui MD - 02/28/2019 11:48 AM CDTAssociated Order(s): AMB CONSULT TO MATERNAL MEDICNE Maternal Medicine Consult Note Date of Consult: 02/28/2019 Physician Requesting Consult: Orlin Birmingham MD Name: Valerie Davila Age: [age] year old Race: Reason for requesting consultation: Valerie Davila is a 28 year [id number], female at 32w2d weeks gestation by Estimated Date of Delivery: 04/23/19. I have been asked by Dr. Birmingham to consult for history of HELLP syndrome and concern for short long bones on a prior ultrasound. HPI: Valerie has been having serial laboratory evaluation for signs of HELLP syndrome and has already started twice weekly testing. summary: See below No Known Allergies Past Medical History: Diagnosis Date ??? Anxiety pt report, no meds ??? History of HELLP syndrome, currently Past Surgical History: Procedure Laterality Date ??? ADENOIDECTOMY 1993 ??? Dilation and Curettage Social History Social History ??? Marital status: Spouse name: N/A ??? Number of children: 1 ??? Years of education: N/A Occupational History ??? Not on file. Social History Main Topics ??? Smoking status: Never Smoker ??? Smokeless tobacco: Never Used ??? Alcohol use No ??? Drug use: 14.00 per week Special: Marijuana ??? Sexual activity: Yes Other Topics Concern ??? Not on file Social History Narrative Family History Problem Relation Age of Onset ??? Diabetes - Type 2 Paternal Grandmother ??? CVA Paternal Grandmother ??? Cancer - Other Paternal Grandmother brain ??? Hypertension Maternal Grandmother ??? Thyroid Disease Sister hypothyroid ??? Depression Sister OB History Para Term AB Living 3 1 1 1 1 SAB TAB Ectopic Multiple Live Births 1 1 # Outcome Date GA Lbr Marques/2nd Weight Sex Delivery Anes PTL Lv 3 Current 2 SAB 2018 6w0d Complications: H/O dilation and curettage 1 09/10/10 36w0d 2381 g (5 lb 4 oz) F Vag-Spont N REX Obstetric Comments G1: had HELLP syndrome ([facility]). Prior records not available for review. PARCEL POST WEIGHER Hx: Outpatient Prescriptions Marked as Taking for the 02/28/19 encounter (Hospital Encounter) with [facility] ULTRASOUND 1 Medication Sig ??? aspirin (ASPIRIN) 81 MG tablet Take 81 mg by mouth once daily ??? ferrous sulfate 325 (65 FE) MG tablet Take 325 mg by mouth once daily ??? Vit-Fe Fumarate-FA ( VITAMIN) 28-0.8 MG tablet Take 1 tablet by mouth once daily Review of Systems: Constitutional: Negative for fevers Eyes: Negative for visual changes Respiratory: Negative for significant shortness of breath or cough Cardiovascular: Negative for chest pain Gastrointestinal: Negative for nausea Genital:Negative for abnormal vaginal discharge Urinary: Negative for dysuria Hematologic/lymphatic: Negative for vaginal bleeding Musculoskeletal:Negative for significant back pain Neurological: Negative for frequent headaches Integument: Denies skin changes Obstetric: movement appreciated, denies leakage of fluid or significant contractions Exam: BP 100/59 Pulse 76 Ht 5' 4 (1.626 m) Wt 149 lb 9.6 oz (67.9 kg) BMI 25.68 kg/m2 Gen: no acute distress Mental: appropriate mood, behavior and speech Chest: clear to auscultation, bilaterally Heart: regular rate and rhythm, no murmurs Abdomen: gravid, no epigastric tenderness Trunk: no costovertebral angle tenderness Musculoskeletal: no bony point tenderness to palpation Extremities: no pedal edema; negative Nati's sign, bilaterally Skin: No rash observed Labs: Alb/Glu/K/N/L Albumin: Negative Glucose: Negative Urine Ketones: Negative. US: (See detailed report) A detailed anatomical screen was performed due to concern for abnormal long bones on outside exam. The exam was technically adequate was somewhat limited due to advanced gestational age. A single fetus is identified in cephalic presentation. The measurements today are consistent with appropriate growth. The long bones are not demonstrated to be short on today's assessment nor is there any suggestion of a skeletal dysplasia. The AMI selected is based on prior outside first-trimester ultrasound( confirmed ). The amniotic fluid volume is normal. The placenta is anterior. No major malformations are seen, within the limitations of the exam. The anatomical screen is suboptimal and incomplete in a few areas. IMPRESSION: Single, live IUP at 32 weeks and two days Estimated size concordant with Established dating Normal amniotic fluid No demonstrated malformation of the long bones Two vessel cord Incomplete anatomical screen (see anatomy table) Discussion points: I discussed with Valerie that the risk of recurrence of preeclampsia in a subsequent has been reported to be up to 14 percent. So far her blood pressures have been normal at her visits. She has been on aspirin for preeclampsia risk reduction. I was able to review one of the laboratory evaluations which was unremarkable. We reviewed today preeclampsia precautions. She may benefit from continuing aspirin prophylaxis for the remainder of her . I do not have any new recommendations to add to the current Obstetric management. We also discussed the anatomic survey today which did not demonstrate any concerns for skeletal dysplasia or short stature. Patient Active Problem List Diagnosis Date Noted ??? History of HELLP syndrome, currently 02/26/2019 Priority: Not Prioritized (01/29/19) CBC 10.5/11.0/34.1/239 BUN four/creatinine 0.48/ALT 18/AST 14/T bili 0.2 ??? Supervision of high-risk of young multigravida 02/26/2019 Priority: Not Prioritized Datinw 2d U/S not c/w LMP A+/RI/hep B NR/HIV neg AFP neg OSB GCT: 109 + MJ (10/10/18) ??? Two vessel umbilical cord, antepartum 02/26/2019 Priority: Not Prioritized RECOMMENDATIONS: Two vessel umbilical cord, antepartum Serial growth every four weeks History of HELLP syndrome, currently Aspirin for preeclampsia risk reduction At this time, I do not anticipate the need for a follow-up consultation with Maternal- Medicine. Please feel free to refer her again, to this office, if future problems develop in this . I have appreciated the opportunity to assist you in the care of Ms. Davila. If issues arise for which I can be of help, please contact me directly, or contact one of my partners if I am unavailable. She will continue seeing you for care. Sincerely, Dary Cui MD Division of Maternal- Medicine Department of Obstetrics, Gynecology, and Women's Health [facility] documented in this encounter Plan of Treatment Not on file documented as of this encounter Procedures Procedure Name Priority Date/Time Associated Diagnosis Comments SONOGRAM - COMPLETE Routine 02/28/2019 10:49 AM CDT Encounter for anatomic survey (HCC) History of HELLP syndrome, currently ([facility]) Supervision of high-risk of young multigravida ([facility]) Two vessel umbilical cord, antepartum ([facility]) documented in this encounter Results * SONOGRAM - COMPLETE (02/28/2019 10:49 AM CDT) Anatomical Region Laterality Modality Other 02/28/2019 10:4 9 AM CDT Narrative 02/28/2019 12:13 PM CDT ? [facility] Maternal [facility] ? [facility] ?PHONE: ??FAX: Pat. Name: ?VALERIE DAVILA. No: ?[id number] Study Date: ?? 02/28/2019 ??10:49am , Age: ? 1990, 28 Pregnancies: ?? 3, Para 1, Ab 1 Height: ? 64 in Weight: ? 133 lb LMP: ?Unknown GA by US: ? 32w2d ?? AMI: 04/23/2019 GA Selected: ??32w2d (Outside Scan) AMI: ?04/23/2019 Referring MD: Sergio Birmingham MD Director Of Accounts Payable: ??Alina Parekh, RDMS, RDCS CPT4: ? 84896 BMI: ?22.83 Hist/Ind: ? Short Long Bones ?HX of HELLP Syndrome MEASUREMENTS & AGE ? GROWTH EVALUATION Measurement ??GA ? Range ? Srce %for GA Ratios ----- ---- ------- BPD ??8.5 cm 34w0d (06k6r-26c9v) Hadl BPD 87% FL/BPD 0.71 (0.71 - 0.87) HC ??30.0 cm 33w2d (99z3w-01r4n) Hadl HC ??38% FL/AC ??0.21 (0.20 - 0.24) AC ??28.9 cm 32w6d (52h5y-62d8f) Hadl AC ??67% HC/AC ??1.04 (0.95 - 1.14) FL ?? 6.0 cm 31w3d (82a8c-42r6d) Hadl FL ??15% CI ? 0.80 (0.70 - 0.86) HL ?? 5.1 cm 29w6d (06b8p-79x4v) Harman HL ??10% Cere 4.2 cm 33w2d (22t7a-97j0m) Hill Cere68% RRad 4.5 cm ? (38n2n-11m7e) Padma RRad57% RUln 5.1 cm 32w0d (11u6p-76s4n) Harman RUln45% RTib 5.4 cm 31w5d (85n7x-10d5n) Harman RTib39% RFib 5.3 cm ? (00s7x-75v0l) Padma RFib63% GA for sonogram 32w2d (30q5k-66z9b) ?? Weight Estimate: based on (BPD,HC,AC,FL) Hadlock ?Weight: 2008 gm (1715-2301gm) Had ? : 4lbs, 6oz ? Normal: 2016 gm (1512- 2520gm) Had ? Wt% ? 49% for 32w2d Heart Rate: 132 bpm Amniotic Fluid Index: 17.6cm (08.5-24.3) Q1: 5.7cm ??Q2: 3.8cm ??Q3: 3.2cm ??Q4: 4.9cm ?? EVAL, PLACENTA Presentation: cephalic Umbilical Cord: 2 Vessels Placenta: anterior Heart Rate: 132 bpm Amniotic Fluid Volume: normal MATERNAL ANATOMY Right ??Desc: Appears normal Left ??Desc: Appears normal Anatomy!Normal!Abnormal!Suboptimal!Prev. Seen!Comments Cranium ?! ?? x ??! ?! ?! ?! Mdl (CSP/Thal! ?? x ??! ?! ?! ?! Ventricles ?? ! ?? x ??! ?! ?! ?! Choroid Plexu! ?? x ??! ?! ?! ?! Cerebellum ?? ! ?? x ??! ?! ?! ?! Cisterna M. ??! ?? x ??! ?! ?! ?! Profile ?! ?? x ??! ?! ?! ?! Nasal Bone ?? ! ?? x ??! ?! ?! ?! Lip ?! ?? x ??! ?! ?! ?! Spine ?! ?? x ??! ?! ?! ?! Lungs ?! ?? x ??! ?! ?! ?! 4 Chamber Hea! ?? x ??! ?! ?! ?! LVOT ? ! ?! ?! ? x ?! ?! RVOT ? ! ?! ?! ? x ?! ?! 3 Vessel View! ?? x ??! ?! ?! ?!Appropriate ?three-vessel ?trachea view Cross-over ?? ! ?! ?! ? x ?! ?! Ductal Arch ??! ?! ?! ? x ?! ?! Aortic Arch ??! ?? x ??! ?! ?! ?! Caval View ?? ! ?? x ??! ?! ?! ?! Situs ?! ?? x ??! ?! ?! ?! Diaphragm ?! ?? x ??! ?! ?! ?! Stomach ?! ?? x ??! ?! ?! ?! Bowel ?! ?? x ??! ?! ?! ?! Kidneys ?! ?? x ??! ?! ?! ?! Bladder ?! ?? x ??! ?! ?! ?! 3 Vessel Cord! ?! ?x ?? ! ?! ?!Two vessel cord Cord In! ?! ?! ? x ?! ?! Upper Extremi! ?? x ??! ?! ?! ?! Hands ?! ?? x ??! ?! ?! ?! Lower Extreme! ?? x ??! ?! ?! ?! Feet ? ! ?? x ??! ?! ?! ?! External Nancy! ?? x ??! ?! ?! ?!Male Placental Cor! ?? x ??! ?! ?! ?! CLINICAL SUMMARY Study Number: 1 A detailed anatomical screen was performed due to concern for abnormal long bones on outside exam. ??The exam was technically adequate was somewhat limited due to Advanced gestational age. A single fetus is identified in cephalic presentation. ??The measurements today are consistent with appropriate growth. ?? The long bones are not demonstrated to be short on today's assessment nor is there any suggestion of a skeletal dysplasia. ??The AMI selected is based on prior outside first-trimester ultrasound( confirmed ). ??The amniotic fluid volume is normal. ??The placenta is anterior. ??No major malformations are seen, within the limitations of the exam. ??The anatomical screen is suboptimal and incomplete in a few areas. ?? IMPRESSION: Single, live IUP at 32w2d Estimated size concordant with Established dating normal amniotic fluid No demonstrated malformation of the long bones Two vessel cord Incomplete anatomical screen (see anatomy table) Ultrasound does not allow detection of all structural or chromosomal abnormalities. ?? ultrasound is limited in the ability to detect or exclude small, cardiac, septal defects. RECOMMEND: Follow up ultrasound in 3-4 weeks to re-evaluate growth due to two vessel cord Consider completion of anatomical screen at next exam Thank you for allowing us the opportunity to care for your patient. Dary Cui MD <Electronic Signature> ??02/28/2019 11:44am R Donaldo Birmingham MD [facility] ORDERABLES documented in this encounter Visit Diagnoses Diagnosis Encounter for anatomic survey (HCC)- Primary Encounter for anatomic survey History of HELLP syndrome, currently (HCC) with other poor obstetric history Supervision of high-risk of young multigravida (HCC) Supervision of high-risk of young multigravida Two vessel umbilical cord, antepartum (HCC) Other umbilical cord complications during labor and delivery, antepartum History of HELLP syndrome, currently , third trimester (HCC) 32 weeks gestation of (HCC) state, incidental * Assessment & Plan Note - Dary Cui MD - 02/28/2019 1:18 PM CDT Associated Problem(s): History of HELLP syndrome, currently (HCC) Aspirin for preeclampsia risk reduction * Assessment & Plan Note - Dary Cui MD - 02/28/2019 11:52 AM CDT Associated Problem(s): Two vessel umbilical cord, antepartum (HCC) Serial growth every four weeks documented in this encounter Care Teams Track Laying Equipment Operator Relationship Specialty Start Date End Date Haley Henriquez APRN-SPENCER [address] [place] [address] PCP - General Nurse Practitioner Family 03/27/1807/07/21 documented as of this encounter
--- OUTSIDE RECORDS SUMMARY | 2024-08-25 14:16 | XMS_ITS | Data Portability ---
Author Organization [facility] Address [address] [place] [address] Care Team Providers Care Change Management Consultant Name Role Phone USMAN ANGEL Back End Architect HALEY SALCIDO Primary Care Provider Melissa e Assessment No assessment recorded. Plan of Treatment Reminders Order Date Submit Date Provider Last Modified By Organization Details Last Modified Time Details Appointments None recorded. Lab pap, IG + reflex HPV if ASC-U 2017 018 Trendy Mondays [facility], [address] [facility], [address], [place], [address], 8 16:36:29 test, urine 2017 018 [email or web address] 3 In-Office Order, Internal Use Only DO Not Attach Compendium DO Not Attach Compendium, Do Not Delete/merge, [id number] 8 13:47:29 hla-B27, blood 2017 018 Trendy Mondays [facility], [address] [facility], [address], [place], [address], 8 20:10:21 Referral None recorded. Procedures None recorded. Surgeries None recorded. Imaging US, obstetric, 1st trimester 2017 018 [email or web address] 3 Not available 8 14:51:29 Medication Orders amoxicilli n 875 mg-potassi um clavulanat e 125 mg tablet 2017 018 [email or web address] [facility] #[id number], [address], [place], [place], [id number], 8 10:01:44 montelukas t 10 mg tablet 2017 018 INTERFACE [facility] #[id number], [address], [place], [place], [id number], 8 10:24:57 loratadine 10 mg tablet 2017 018 INTERFACE [facility] #[id number], [address], [place], [place], [id number], 8 10:08:35 Patient TargetsNo targets recorded. Patient Instructions Encounter Date Encounter Id Patient Instructions Last Modified By Organization Details Last Modified Time 10/05/2017 [id number] Stop Amox and switch to the Augmentin. Take all antibiotics prescribed to you. If any fever or increase in pain or redness, call/return to office. Not available 10/05/2017 15:34:38 f/u as needed DW P barriers to care: none Not available 10/05/2017 15:34:02 10/25/2017 [id number] upper respirator y infection (cold): care instructions Not available 10/25/2017 10:24:52 seasonal allergies: care instructions Not available 10/25/2017 10:24:52 Mucinex and othe r OTC cold/cough remedies are fine to take, increase fluids and have good handwashing. Get plenty of rest. Not available 10/25/2017 10:24:10 f/u as needed DW P barriers to care: none Not available 10/25/2017 10:24:33 06/08/2018 [id number] dry skin: care instructions Not available 06/08/2018 13:22:47 healthy upper back: exercises Not available 06/08/2018 10:08:31 Avoid potential triggers, take allergy medication daily. Sleep with windows closed and replace filters in HVAC regularly. Not available 06/08/2018 13:23:37 follow up as needed, yearly to keep established with provider, plan pending lab results Not available 06/08/2018 13:25:41 Reason for Referral None Reported. Results Created Date Observation Date Name Description Value Unit Range Abnormal Flag Note LastModifiedBy Organization Detail LastModifiedTime 12/21/19 18 12/21/2017 CMP, serum or plasm a glucose 82 mg/dL 65-99 Not Available [facility] ([facility]) [address] [place], [address], 12/21/2017 07:15:31 12/21/19 18 12/21/2017 CMP, serum or plasm a BUN 11 mg/dL 6-20 Not Available [facility] ([facility]) [address] [place], [address], 12/21/2017 07:15:31 12/21/19 18 12/21/2017 CMP, serum or plasm a creatinine 0.73 mg/dL 0.57-1 .00 Not Available [facility] ([facility]) [address] [place], [address], 12/21/2017 07:15:31 12/21/19 18 12/21/2017 CMP, serum or plasm a eGFR if nonafricn AM 112 mL/mi n/1.7 3 >59 Not Available [facility] ([facility]) [address] [place], [address], 12/21/2017 07:15:31 12/21/19 18 12/21/2017 CMP, serum or plasm a eGFR if africn AM 130 mL/mi n/1.7 3 >59 Not Available [facility] ([facility]) [address] [place], [address], 12/21/2017 07:15:31 12/21/19 18 12/21/2017 CMP, serum or plasm a BUN/creatini ne ratio 15 9-23 Not Available [facility] ([facility]) [address] [place], [address], 12/21/2017 07:15:31 12/21/19 18 12/21/2017 CMP, serum or plasm a sodium 138 mmol/ L 134-14 4 Not Available [facility] ([facility]) [address] [facility] [place], [address], 12/21/2017 07:15:31 12/21/19 18 12/21/2017 CMP, serum or plasm a potassium 4.0 mmol/ L 3.5-5. 2 Not Available [facility] ([facility]) [address] [facility] [place], [address], 12/21/2017 07:15:31 12/21/19 18 12/21/2017 CMP, serum or plasm a chloride 100 mmol/ L 96-106 Not Available [facility] ([facility]) [address] [place], [address], 12/21/2017 07:15:31 12/21/19 18 12/21/2017 CMP, serum or plasm a carbon dioxide, total 23 mmol/ L 18-29 Not Available [facility] ([facility]) [address] [place], [address], 12/21/2017 07:15:31 12/21/19 18 12/21/2017 CMP, serum or plasm a calcium 9.0 mg/dL 8.7-10 .2 Not Available [facility] ([facility]) [address] [place], [address], 12/21/2017 07:15:31 12/21/19 18 12/21/2017 CMP, serum or plasm a protein, total 7.0 g/dL 6.0-8. 5 Not Available [facility] ([facility]) [address] [place], [address], 12/21/2017 07:15:31 12/21/19 18 12/21/2017 CMP, serum or plasm a albumin 4.7 g/dL 3.5-5. 5 Not Available [facility] ([facility]) [address] [place], [address], 12/21/2017 07:15:31 12/21/19 18 12/21/2017 CMP, serum or plasm a globulin, total 2.3 g/dL 1.5-4. 5 Not Available [facility] ([facility]) [address] [place], [address], 12/21/2017 07:15:31 12/21/19 18 12/21/2017 CMP, serum or plasm a A/G ratio 2.0 1.2-2. 2 Not Available [facility] ([facility]) [address] [place], [address], 12/21/2017 07:15:31 12/21/19 18 12/21/2017 CMP, serum or plasm a bilirubin, total 0.3 mg/dL 0.0-1. 2 Not Available [facility] ([facility]) [address] [place], [address], 12/21/2017 07:15:31 12/21/19 18 12/21/2017 CMP, serum or plasm a alkaline phosphatase 58 IU/L 39-117 Not Available [facility] ([facility]) [address] [place], [address], 12/21/2017 07:15:31 12/21/19 18 12/21/2017 CMP, serum or plasm a AST (SGOT) 18 IU/L 0-40 Not Available [facility] ([facility]) [address] [place], [address], 12/21/2017 07:15:31 12/21/19 18 12/21/2017 CMP, serum or plasm a ALT (SGPT) 17 IU/L 0-32 Not Available [facility] ([facility]) [address] [place], [address], 12/21/2017 07:15:31 12/21/19 18 12/21/2017 CBC WBC 9.4 x10e3 /uL 3.4-10 .8 Not Available [facility] ([facility]) [address] [place], [address], 12/21/2017 07:15:32 12/21/19 18 12/21/2017 CBC RBC 4.60 x10e6 /uL 3.77-5 .28 Not Available [facility] ([facility]) [address] [facility], [place], [address], 12/21/2017 07:15:32 12/21/19 18 12/21/2017 CBC hemoglobin 13.6 g/dL 11.1-1 5.9 Not Available [facility] ([facility]) [address] [place], [address], 12/21/2017 07:15:32 12/21/19 18 12/21/2017 CBC hematocrit 40.4 % 34.0-4 6.6 Not Available [facility] ([facility]) [address] [facility], [place], [address], 12/21/2017 07:15:32 12/21/19 18 12/21/2017 CBC MCV 88 fL 79-97 Not Available [facility] ([facility]) [address] [place], [address], 12/21/2017 07:15:32 12/21/19 18 12/21/2017 CBC MCH 29.6 pg 26.6-3 3.0 Not Available [facility] ([facility]) [address] [facility], [place], [address], 12/21/2017 07:15:32 12/21/19 18 12/21/2017 CBC MCHC 33.7 g/dL 31.5-3 5.7 Not Available [facility] ([facility]) [address] [facility], [place], [address], 12/21/2017 07:15:32 12/21/19 18 12/21/2017 CBC RDW 13.7 % 12.3-1 5.4 Not Available [facility] ([facility]) [address], [place], [address], 12/21/2017 07:15:32 12/21/19 18 12/21/2017 CBC NRBC REPROGRAPHICS TECHNICIAN Not Available [facility] ([facility]) [address], [place], [address], 12/21/2017 07:15:32 12/21/19 18 12/21/2017 lipid panel , serum cholesterol, total 182 mg/dL 100-19 9 Not Available [facility] ([facility]) [address], [place], [address], 12/21/2017 07:15:32 12/21/19 18 12/21/2017 lipid panel , serum triglyceride s 128 mg/dL 0-149 Not Available [facility] ([facility]) [address] [facility], [place], [address], 12/21/2017 07:15:32 12/21/19 18 12/21/2017 lipid panel , serum HDL cholesterol 42 mg/dL >39 Not Available [facility] ([facility]) [address] [facility], [place], [address], 12/21/2017 07:15:32 12/21/19 18 12/21/2017 lipid panel , serum VLDL cholesterol hawa 26 mg/dL 5-40 Not Available [facility] ([facility]) [address] [facility], [place], [address], 12/21/2017 07:15:32 12/21/19 18 12/21/2017 lipid panel , serum LDL cholesterol calc 114 mg/dL 0-99 above high normal Not Available [facility] ([facility]) [address] [facility], [place], [address], 12/21/2017 07:15:32 12/21/19 18 12/21/2017 lipid panel , serum comment: REPROGRAPHICS TECHNICIAN Not Available [facility] ([facility]) [address] [place], [address], 12/21/2017 07:15:32 12/21/19 18 12/21/2017 TSH, ultra -sens itive , serum TSH 2.120 uIU/m L 0.450- 4.500 Not Available [facility] ([facility]) [address] [place], [address], 12/21/2017 07:15:32 12/21/19 18 12/21/2017 pap, IG + refle x HPV if ASC-U diagnosis: Rena MARMOLEJO FOR INTRA EPITH ELIAL ERIN N AND ROGERS HERNANDEZ . Not Available [facility] ([facility]) [address] [place], [address], 12/21/2017 16:36:29 12/21/19 18 12/21/2017 pap, IG + refle x HPV if ASC-U specimen adequacy: Rena aranda Satis facto steven for evalu ation . Endoc ervic al and/o r squam ous metap lasti c cells (endo cervi hawa compo nent) are prese nt. Not Available [facility] ([facility]) [address] [place], [address], 12/21/2017 16:36:29 12/21/19 18 12/21/2017 pap, IG + refle x HPV if ASC-U clinician provided ICD10: Rena aranda Z01.4 19 Not Available [facility] ([facility]) [address] [place], [address], 12/21/2017 16:36:29 12/21/19 18 12/21/2017 pap, IG + refle x HPV if ASC-U performed by: Rena Delarosa , Cytot gala aranda Not Available [facility] ([facility]) [address] [place], [address], 12/21/2017 16:36:29 12/21/19 18 12/21/2017 pap, IG + refle x HPV if ASC-U . . Not Available [facility] ([facility]) [address] [place], [address], 12/21/2017 16:36:29 12/21/19 18 12/21/2017 pap, IG + refle x HPV if ASC-U note: Commen t The Pap smear is a scree vidal test desig connie to aid in the detec tion of anupama ligna nt and malig nant condi tions of the uteri ne cervi x. It is not a diagn ostic proce dure and shoul d not be used as the sole means of detec ting cervi hawa cance r. Both false -posi tive and false -nega tive repor ts do occur . Not Available [facility] ([facility]) [address] [facility], [place], [address], 12/21/2017 16:36:29 12/21/19 18 12/21/2017 pap, IG + refle x HPV if ASC-U test methodology: Commen t This liqui d based ThinP rep(R ) pap test was scree connie with the use of an image guide d syste m. Not Available [facility] ([facility]) [address] [facility], [place], [address], 12/21/2017 16:36:29 12/21/19 18 12/21/2017 pap, IG + refle x HPV if ASC-U . Commen t The HPV DNA refle x crite emma were not met with this speci men resul t there fore, no HPV testi ng was perfo rmed. Not Available [facility] ([facility]) [address] [place], [address], 12/21/2017 16:36:29 03/06/20 18 03/06/2018 pregn darling test, urine HCG positi ve Not Available In-Office Order Internal Use Only DO Not Attach Compendium DO Not Attach Compendium, Do Not Delete/merge, [id number] 03/06/2018 11:51:45 06/08/20 18 06/13/2018 hla-B 27, blood hla-B27 Negati ve HLA-B *27 Negat rikki B27 allel e inter preta tion for all loci based on IMGT/ HLA datab ase versi on 11.22 This test was devel oped and its perfo rmanc e geovanny cteri stics deter mined by [facility]. It has not been clear ed or appro felix by the Food and Drug Admin istra tion. [facility] CLIA ID Numbe r [id number] This test was perfo rmed using PCR (Poly meras e Chain React ion)/ SSOP (Sequ ence Speci fic Oligo nucle otide Probe s) techn ique. SBT (Sequ ence Based Typin g) and/o r SSP (Sequ ence Speci fic Prime rs) may be used as suppl ement al metho ds when neces kellen. Pleas e conta ct HLA [facility] ce at [phone] if you have any quest ions. Direc tor of HLA Labor atory Dr Valdemar Whitten, PhD Not Available [facility] ([facility]) [address] [facility], [place], [address], 06/13/2018 20:10:21 03/11/20 18 03/10/2018 US, obste tric, 1st trime ster No observ ation record ed. [email or web address] [place] [address] ([facility]) [address], [place], [address], 03/11/2018 14:50:38 06/11/20 19 06/06/2019 CT, abdom en + pelvi s, w/ contr ast No observ ation record ed. Not Available 2018 13:23:43 Result Notes None recorded. Problems Name Problem SNOMED Code Status Onset Date Resolution Date Notes Provider Name and Address Organization Details Recorded Time Numbness of limbs 286626891 Active CHRISSY Smith Attn: Marsha g,[address], [place], [address], [facility] 6 15:48:21 Pregnanc y 13038333 Completed 201706/08/2018 Removal Reason: no longer Haley Salcido APN, FNP-C Attn: Marsha munson,[address] [facility] [address], [place], [place], [address] [place] [address] 2, [facility] 8 10:08:44 Headache 11871225 Active ROWDY SmithC Attn: Marsha munson,[address] [facility], [place], [place], [address] [place] [address] 2, [facility] 6 15:48:21 Heart murmur 37030908 Active ROWDY SmithC Attn: Marsha munson,[address] [place], [place], [address] [place] [address] 2, [facility] 6 15:48:21 Tobacco user 216468677 Active ROWDY SmithC Attn: Marsha munson,[address] [place], [place], [address] [place] [address] 2, [facility] 6 15:48:21 Anxiety 76666096 Active CHRISSY Smith Attn: Marhsa munson,[address] [place] [address], [address] [place] [address] 2, [facility] 6 15:48:21 Strain of knee 73597525993 3 Active ROWDY SmithC Attn: Marsha munson,[address] [place] [address], [address] [place] [address] 2, [facility] 6 08:28:13 Wheezing 73446197 Active 2016 Haley Salcido APN, FNP-C Attn: Marsha munson,[address] [place], [place], [address] [place] [address] 2, [facility] 7 11:19:30 Acute sinusiti s 37180301 Completed 201604/20/2017 Haley Salcido APN, FNP-C Attn: Marsha munson,[address] [place] [address], [address] [place] [address] 2, [facility] 7 12:09:15 Acute otitis media 2355241 Active 2016 Haley Salcido APN EMERGENCY VETERINARY ASSISTANT-C Attn: Marsha arpit,[address] [facility], [place], [address], [facility] 7 11:19:32 Foot pain 47728031 Active 2016 Haley Salcido APN EMERGENCY VETERINARY ASSISTANT-C Attn: Joeandrzej munson,[address] [facility], [place], [address], [facility] 7 11:25:21 Dysfunct ion of eustachi an tube 99345702 Active 2016 Haley Salcido APN, FNP-C Attn: Joeandrzej munson,[address] [place], [address], [facility] 7 11:40:50 Acute otitis externa 65531632 Active 2016 Haley Salcido APN, FNP-C Attn: Joeandrzej munson,[address] [place] [address], [place], [address], [facility] 7 12:10:29 Seasonal allergic rhinitis 158452136 Active 2016 Haley Salcido APN, FNP-C Attn: Joeandrzej munson,[address] [place] [address], [address], [facility] 7 12:11:04 Pain in left knee Active 2016 Haley Salcido APN, FNP-C Attn: Joeandrzej munson,[address] [place] [address], [address], [facility] 7 15:39:31 Problem Notes None recorded. Procedures Surgical History Date Name Laterality Status Provider Name and Address Organization Details Recorded Time 12/20/2017 Date of Last Pap Smear completed Arielle Telles [place] [facility] 03/06/2018 11:49:27 Other completed Usman Angel [place] [facility] 10/08/2014 11:14:25 Imaging Results Imaging Date Name Status LastModified by [facility] Details LastModified Time 03/10/2018 US, obstetric, 1st trimester completed [email or web address] [facility] (Imaging) [address], [place], [address], 03/11/2018 14:50:38 06/06/2019 CT, abdomen + pelvis, w/ contrast completed Information not available 06/12/2019 13:23:43 Procedure Notes None recorded. Medical Equipment None Reported. Allergies No known drug allergies Medications Name Sig Start Date Stop Date Status Note LastModified by Organization Details LastModified Time amoxicillin 500 mg capsule Take 2 capsules every 8 hours by oral route for 7 days. 10/25 completed Not Available Not Available Not Available cetirizine 10 mg tablet Take 1 tablet every day by oral route at bedtime. 12/20 completed Not Available Not Available Not Available azithromyci n 250 mg tablet TAKE 2 TABLETS (500 MG) BY ORAL ROUTE ONCE DAILY FOR 1 DAY THEN 1 TABLET (250 MG) BY ORAL ROUTE ONCE DAILY FOR 4 DAYS 03/29 completed Not Available Not Available Not Available ibuprofen 800 mg tablet Take 1 tablet 3 times a day by oral route as needed. 06/14 completed Not Available Not Available Not Available fluconazole 150 mg tablet Take 1 tablet by oral route. 09/28 completed Not Available Not Available Not Available hydrocodone 5 mg-acetamin ophen 325 mg tablet 10/26 completed Not Available Not Available Not Available tramadol 50 mg tablet Take 1 tablet every 6 hours by oral route as needed. 06/14 completed Not Available Not Available Not Available Vitamin tablet Take 1 tablet every day by oral route. 10/26 completed Not Available Not Available Not Available misoprostol 200 mcg tablet 06/08 completed Not Available Not Available Not Available montelukast 10 mg tablet Take 1 tablet every day by oral route. active Not Available Not Available No t Available methylpredn isolone 4 mg tablets in a dose pack Take 1 package by oral route. 10/26 completed Not Available Not Available Not Available ondansetron 4 mg disintegrat ing tablet active Not Available Not Available N ot Available cefdinir 300 mg capsule Take 1 capsule twice a day by oral route for 10 days. 03/09 completed Not Available Not Available Not Available fluticasone propionate 50 mcg/actuati on nasal spray,suspe nsion [place] 1 spray every day by intranasa l route. 06/08 completed Not Available Not Available Not Available loratadine 10 mg tablet Take 1 tablet every day by oral route. 2017 active Not Available Not Available Not Avai lable naproxen 500 mg tablet Take 1 tablet twice a day by oral route as needed. 10/25 completed Not Available Not Available Not Available amoxicillin 875 mg-potassiu m clavulanate 125 mg tablet Take 1 tablet every 12 hours by oral route for 5 days. 10/25 completed Not Available Not Available Not Available Ventolin HFA 90 mcg/actuati on aerosol inhaler Inhale 2 puffs every 4 hours by inhalatio n route. 03/29 completed Not Available Not Available Not Available hydroxyzine pamoate 25 mg capsule Take 1 capsule as needed by oral route at bedtime. 10/26 completed Not Available Not Available Not Available neomycin-po lymyxin-hyd rocort 3.5 mg-10,000 unit/mL-1 % ear drops,susp INSTILL 4 DROPS INTO AFFECTED EAR(S) BY OTIC ROUTE 3 TIMES PER DAY for 7 days 09/28 completed Not Available Not Available Not Available active Not Available Not Avai lable Not Available vits 96-ferrous fumarate 27 mg iron-folic acid 800 mcg tablet 10/26 completed Not Available Not Available Not Available Vitals Date Recorded Body height Body mass index (BMI) Body weight Oxygen saturation Oxygen saturation in Arterial blood by Pulse oximetry Heart rate Respiratory rate Body temperature Systolic blood pressure Diastolic blood pressure Provider Name and Address Organization Details Last Updated DateTime 8 160.02 cm 25.3 kg/m2 05094.7 1 g 98 % 98 % 99 /min 12 /min 98.3 [degF] 100 mm[Hg] 60 mm[Hg] Gilda Guevara [place] [facility] 8 15:18:56 Date Recorded Body height Body mass index (BMI) Body weight Oxygen saturation Oxygen saturation in Arterial blood by Pulse oximetry Heart rate Respiratory rate Body temperature Systolic blood pressure Diastolic blood pressure Provider Name and Address Organization Details Last Updated DateTime 8 160.02 cm 24.6 kg/m2 06406.0 4 g 100 % 100 % 74 /min 12 /min 98.5 [degF] 100 mm[Hg] 60 mm[Hg] Gilda Guevara [facility] 8 10:03:23 Date Recorded Body height Body mass index (BMI) Body weight Systolic blood pressure Diastolic blood pressure Provider Name and Address Organization Details Last Updated DateTime 12/20/2017 160.02 cm 25 kg/m2 75379.24 g 98 mm[Hg] 68 mm[Hg] Arielle Telles [facility] 8 14:14:32 Date Recorded Body height Body mass index (BMI) Body weight Systolic blood pressure Diastolic blood pressure Provider Name and Address Organization Details Last Updated DateTime 03/06/2018 160.02 cm 24.7 kg/m2 92544.05 7904 g 110 mm[Hg] 66 mm[Hg] Arielle Telles [facility] 8 11:48:32 Date Recorded Body height Body mass index (BMI) Oxygen saturation Oxygen saturation in Arterial blood by Pulse oximetry Heart rate Respiratory rate Body temperature Systolic blood pressure Diastolic blood pressure Provider Name and Address Organization Details Last Updated DateTime 8 160.02 cm 24.6 kg/m2 100 % 100 % 78 /min 12 /min 98.3 [degF] 108 mm[Hg] 62 mm[Hg] Prisca Mg MA [facility] 8 09:42:36 Date Recorded Body weight Provider Name an d Address Organization Details Last Updated DateTime 06/08/2018 61050.71979 g BECKIE Brock, EMERGENCY VETERINARY ASSISTANT-C Attn: Accounting,[address] [place], [address], [facility] 06/08/2018 13:18:22 Social History Question Answer Notes LastModified by Organizat ion Details LastModified Time Tobacco Smoking Status Never Smoker Arielle Telles nayla [facility] 11/11/2016 10:51:02 What Is Your Level Of Alcohol Consumption? None Information not available 10/22/2015 Is Blood Transfusion Acceptable In An Emergency? Yes Information not available 10/17/2014 What Is Your Level Of Caffeine Consumption? Heavy Soda [email or web address] Information not available 09/24/2014 How Much Tobacco Do You Chew? None Information not available 10/22/2015 Are You Currently Employed? Yes [employer] Information not available 12/20/2017 What Type Of Diet Are You Following? REGULAR [email or web address] Information not available 09/24/2014 Which Illicit Or Recreational Drugs Have You Used? Yes Micki burch Information not available 10/22/2015 Education 2 Year College Information not available 10/17/2014 Are There Any Guns Present In Your Home? No Information not available 10/17/2014 Live Alone Or With Others? With Others Information not available 10/17/2014 Marital Status Informatio n not available 11/11/2016 What Was The Date Of Your Most Recent Tobacco Screening? 06/08/2018 Information not available 03/22/2019 How Many Children Do You Have? 1 Information not available 10/17/2014 Performs Monthly Self-breast Exam? No Sometimes Information not available 11/07/2015 Do You Use Protection During Sex? No Information not available 10/17/2014 What Is Your Relationship Status? Information not available 12/20/2017 Seat Belts Used Routinely Yes [email or web address] Information not available 10/08/2014 Are You Sexually Active? Yes Information not available 10/17/2014 Smoke Alarm In Home Yes Information not available 10/17/2014 At What Age Did You Start Smoking Tobacco? 12 Information not available 11/07/2015 General Stress Level Low Information not available 11/07/2015 Do You Use Sunscreen Routinely? Yes [email or web address] Information not available 10/08/2014 Sex: Unknown Functional Status Question Answer Note LastModified by Organizat ion Details LastModified Time What is your exercise level? Occasional Information not available 10/22/2015 Mental Status None recorded. Family History Relationship Description Onset Age of this Age Resolved Age Notes LastModified by Organization Details LastModified Time Mother History of depression [email or web address] Not available 04/05 15:48:26 Mother Fibromyalgia [email or web address] Not availa ble 06/08/2018 09:40:40 Sister Attention deficit hyperactivit y disorder [email or web address] Not available 04/05 15:48:26 Sister Disorder of thyroid gland [email or web address] Not available 2015 15:48:26 Paternal Grandmother Diabetes mellitus [email or web address] Not available 2015 15:48:26 Paternal Grandmother Malignant tumor of ovary [email or web address] Not available 2015 15:48:26 Maternal Grandmother Hypertensive disorder [email or web address] Not available 2015 15:48:26 Maternal Grandmother Hypercholest erolemia [email or web address] Not available 2015 15:48:26 Maternal Grandfather Hypercholest erolemia [email or web address] Not available 2015 15:48:26 Medical History Condition Response Coronary Artery Disease N Other Y Atrial Fibrillation N High Blood Pressure N Breast Cancer N Depression N COPD N Blood Clots N Lung Disease N Breast Problem N Anesthesia Complications N Headaches/Migraines Y Anxiety Disorder Y Muscle, Joint, or Bone Problems N Arthritis N Infertility N Polyps N Acid Reflux (GERD) N Cancer N Stroke N Endometriosis N High Cholesterol N Liver Disease N Headaches N Fibromyalgia N Kidney Disease N Heart Problems N Kidney or Bladder Problems N Thyroid Problems N GI Problems N Acne N Eating Disorder N Skin Problems N Anemia N Heart Attack (CO) N Ovarian Cancer N Diabetes N Blood Transfusions N Seizures/Epilepsy N Abuse/Domestic Violence N Asthma N Allergies N Hepatitis N Heart Disease N Pre-Eclampsia N Hypertension N Osteoporosis N Heart Failure N Gynecological History Statement/Question Response Abnormal Pap N Flow Moderate On BCP's at Conception? N STIs/STDs N HPV Vaccine Y Duration of Flow (days) 4 Age at Menarche 12 Current Control Method Age at First Child 19 Frequency of Cycle (Q days) 27 Sexually Active? Y Menses Monthly Y Date of Last Pap Smear 12/20/2017 Sexual Problems? N LMP Definite Desired Control Method None Obstetrics History GPAL:G 2 P 0 1 0 1 Type Value Multiple Births 0 Full Term 0 Induced 0 Spontaneous 0 Premature 1 Living 1 Ectopics 0 Total 2 Immunizations Vaccine Type Date Status Note Provider Nam e and Address Organization Details Recorded Time Tdap 12/26/2014 completed Not Available [employer] 09/15/2019 02:29:58 Past Encounters Encounter ID Performer Location Encounter Start Date Encounter Closed Date Diagnosis/Indication Diagnosis SNOMED-CT Code Diagnosis ICD10 Code [id number] Jennifer Rogers (Adult Med) [address] [place] [address] 09/24/2014 13:48:57 09/24/2014 15:16:31 Numbness of limbs 574999292 Active or passive immunization 941685379 Hyperlipid emia screening 577255860 Diabetes m ellitus screening 838064933 Thyroid di sorder screening 481836614 Anemia screening 4293887 07 [id number] [facility] [address] [facility] [place] [address] 10/08/2014 10:35:07 10/08/2014 12:40:34 Gynecologic examination 97557742 Venereal d isease screening 086527108 [id number] Justina Kash [facility] (DRYER OPERATOR) [address] [facility] [place] [address] 10/17/2014 10:22:47 10/17/2014 12:21:57 Gynecologic examination 41484005 Venereal d isease screening 220340212 [id number] Usman Greenhalto (DRYER OPERATOR) [address] [place] [address] 10/22/2015 09:33:21 10/22/2015 12:10:49 Venereal disease screening 824319638 Z11.3 Evaluation of semen fertility 542561309 Z31.41 Gynecologi c examination 70102306 Z01.419 [id number] Jennifer Guthrie [facility] (Adult Med) [address] [facility] [place] [address] 12/24/2014 13:57:20 12/24/2014 15:01:29 Numbness of limbs 625276405 Active or passive immunization 445581008 [id number] [facility] [address] [facility] [place] [address] 10/20/2015 14:57:52 10/20/2015 17:43:41 Adult health examination 279174655 Z00.01 Tobacco user 061922602 Z 72.0 Anxiety 22470676 F41.9 Hyperlipid emia screening 312064982 Z13.220 Anemia screening 7036263 07 Z13.0 Diabetes m ellitus screening 890621252 Z13.1 [id number] Usman Rogers (DRYER OPERATOR) [address] [place] [address] 11/07/2015 09:28:31 11/07/2015 10:29:00 Venereal disease screening 840536274 Z11.3 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 655119656 Z31.81 [id number] CHRISSY Smith [facility] ([place] [address]) [address] [facility] [place] [address] 02/24/2016 10:04:48 02/24/2016 12:25:45 Strain of knee 1652640374 03 S86.912A [id number] Kari Vazquez [facility] ([place] [address]) [address] [facility] [place] [address] 03/08/2016 14:46:15 03/10/2016 14:59:49 Strain of knee 0453790856 03 S86.912A [id number] Lexi [facility] ([place] [address]) [address] [facility] [place] [address] 04/05/2016 15:24:01 04/06/2016 09:30:14 Strain of knee 2284124429 03 S86.912A [id number] Haley Salcido APN, FNP-C [place] (Adult Med) [address] [facility] [place] [address] 06/14/2016 10:01:42 06/14/2016 15:15:13 Strain of knee 7865225489 03 S86.912S Anxiety 47286786 F41.9 Cannabis d ependence, continuous 259856391 F12.20 Adult heal th examination 128399009 Z00.00 [id number] Haley Salcido APN, FNP-C [facility] (Adult Med) [address] [place] [address] 07/19/2016 10:52:28 07/19/2016 14:43:41 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 Pain in throat 911902370 R07.0 [id number] Haley Salcido APN, FNP-C [facility] (Adult Med) [address] [place] [address] 07/27/2016 10:48:08 07/27/2016 13:31:37 Sore throat 238575215 J02.9 Upper resp iratory infection 39076542 J06.9 [id number] Haley Salcido APN, FNP-C [facility] (Adult Med) [address] [place] [address] 10/26/2016 10:32:19 10/26/2016 15:04:51 Acute sinusitis 96132937 J01.90 Wheezing 09635626 R06.2 Acute otitis media 92539 03 H65.03 Foot pain 39090430 M79.6 71 M79.617 [id number] Usman Rogers (DRYER OPERATOR) [address] [facility] [place] [address] 11/11/2016 10:31:27 12/03/2016 11:15:35 Gynecologic examination 21851746 Z01.419 Venereal d isease screening 827434847 Z11.3 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 425577912 Z31.81 [id number] Usman Rogers (DRYER OPERATOR) [address] [place] [address] 11/23/2016 10:14:14 11/23/2016 16:03:58 Venereal disease screening 674857799 Z11.3 [id number] Haley Salcido APN, FNP-C [place] (Adult Med) [address] [place] [address] 01/17/2017 11:43:49 01/17/2017 14:27:11 Acute otitis media 5281902 H65.03 [id number] Usman Rogers (DRYER OPERATOR) [address] [facility] [place] [address] 03/09/2017 11:17:21 03/11/2017 11:49:13 Pain of breast 80164918 N64.4 [id number] Haley Salcido APN, FNP-C [facility] (Adult Med) [address] [place] [address] 03/15/2017 14:31:33 03/16/2017 15:24:47 Acute otitis media 9810190 H65.03 Candidiasis of vagina 72 328695 B37.3 [id number] Haley Salcido APN, FNP-C [facility] (Adult Med) [address] [facility] [place] [address] 03/29/2017 10:59:54 03/31/2017 09:29:29 Acute otitis media 5895959 H65.03 Candidiasis of vagina 72 305605 B37.3 Dysfunctio n of eustachian tube 78726829 H69.93 [id number] Usman Angel Ken (DRYER OPERATOR) [address] [place] [address] 04/20/2017 11:25:43 04/21/2017 17:14:28 Pain of breast 24782452 N64.4 [id number] Haley Salcido APN, FNP-C [place] (Adult Med) [address] [facility] [place] [address] 04/20/2017 11:36:45 04/21/2017 12:23:56 Acute otitis externa 06341167 H60.503 Seasonal a llergic rhinitis 272407845 J30.2 [id number] Haley Salcido APN, FNP-C [facility] (Adult Med) [address] [place] [address] 05/09/2017 14:49:09 05/10/2017 09:08:49 Pain in left knee 0145732743 52978 M25.562 Seasonal a llergic rhinitis 527389201 J30.2 [id number] Haley Salcido APN, FNP-C [place] (Adult Med) [address] [facility] [place] [address] 09/28/2017 15:54:58 09/28/2017 17:59:15 Finding of body mass index 613243697 E66.9 Acute otitis media 06706 03 H65.03 Bronchitis 85037385 J40 Adult heal th examination 396663383 Z00.00 [id number] Haley Salcido APN, FNP-C [place] (Adult Med) [address] [facility] [place] [address] 10/05/2017 15:13:43 10/06/2017 16:21:52 Acute otitis media 6416572 H65.03 [id number] Haley Salcido APN, FNP-C [place] (Adult Med) [address] [place] [address] 10/25/2017 09:53:31 10/26/2017 14:56:07 Upper respiratory infection 71651374 J06.9 Seasonal a llergic rhinitis 218683243 J30.2 [id number] [facility] (DRYER OPERATOR) [address] [place] [address] 12/20/2017 14:01:12 12/27/2017 13:47:00 Gynecologic examination 97340170 Z01.018 [id number] [facility] (DRYER OPERATOR) [address] [place] [address] 03/06/2018 11:16:26 03/07/2018 12:02:17 Missed period 19243169 N92.5 Routine an tenatal care 936087144 Z34.01 [id number] Haley Salcido APN, INDIO-[facility] (Adult Med) [address] [place] [address] 06/08/2018 09:33:39 06/08/2018 14:25:03 Seasonal allergic rhinitis 421960688 J30.2 Thoracic back pain 36032 8004 M54.6 Complainin g of dry skin 578302506 R23.8 Health Concerns Section Related Observation LastModified by Organization Detai ls LastModified Time None Recorded Concern Status LastModified by Organization Details LastModified Time None Recorded Advance Directives Directive None Recorded Payers Encounter Date Sequence Insurance Name Policy Number Policy Sousa Covered Member ID Sousa Member ID Guarantor Name 10/05/2017 1 [employer]ON[employer] [facility] (MEDICAID HMO) [id number] Valerie Bell [id number] Laisha Angelainer 10/25/2017 1 [employer] [facility] (MEDICAID HMO) [id number] Valerie Bell [id number] Laisha Isaias Freiner 12/20/2017 1 [employer] [facility] [place] [id number] Valerie Bell [id number] Laisha Isaias Freiner 03/06/2018 1 [employer] [facility] (MEDICAID HMO) [id number] Valerie Bell [id number] Laisha Esparza Freiner 06/08/2018 1 [employer] [facility] (MEDICAID HMO) [id number] Valerie Bell [id number] Laisha Davila Notes Date Note Type Note Provider Name and Address Organization Details Recorded Time 10/05/2017 text/html Ears still hurt but cough is better. no fever. Has 6 pills left of her abx, has not been great about taking them but ears also feel worse. Haley Salcido APN, INDIO-C Attn: Accounting[address] [place], [address], [facility] 10/05/2017 22:56:30 10/25/2017 text/html Was in [place] and in rainy cold, everyone in her family was sick then, she has had cold symptoms since then, taking dayquil and nyquil, cough, ear pain and throat pain Haley Salcido APN, INDIO-C Attn: Accounting,[address] [facility], [place], [address], [facility] 10/25/2017 10:26:00 12/20/2017 text/html Annual GYNReport ed bypatient.Menstrua l cycle:Normal menses Urinary symptoms:No hematuria; No incontinence Vulva:No genital lesion Vagina:Normal vaginal discharge Breast:No breast pain; No breast lump; No nipple discharge Current Contraception:Carmen h control not practiced Sexual complaints:No sexual complaints; No pain during intercourse; Normal libido Menopausal Symptoms:No menopausal symptoms; Normal vaginal lubrication Psychological symptoms:No depression; No anxiety; No PMDD Preventive measures:Encourage self breast examination; Encourage regular exercise; Encourage no tobacco use; Encourage regular mammograms starting age 40 Usman winslow, [facility] 12/26/2017 11:35:48 03/06/2018 text/html Pt presents for confirmation of . She has an appointment in 2 weeks with [facility]. She also has c/o a bump on her pelvic area. She has been doing warm compresses and it has decreased in size. Usman winslow, [facility] 03/06/2018 14:08:50 06/08/2018 text/html Mom has genetic autoimmune disease that was recently diagnosed; Pt has back pain and neck pain that has increased, but thought was just with phone use. Rash-skin dry and patchy; unsure of any skin allergies, happens all year and water makes it worse at times, no longer Haley Salcido APN, EMERGENCY VETERINARY ASSISTANT-C Attn: Accounting[address] , [place], [address], [facility] 06/08/2018 13:27:04 OBGyn Episode Ob Episode Information Episode Created Date Number of Fetuses Patient Bloodtype Patient rh Status Prepregnancy Weight lbs Domestic Partner Domestic Partner Phone Father Name Sewing Machine Tester Status 10/08/19 15 1 CLOSED Fetus Data First Name Last Name Admitted to NICU Weight (g) Sex Living Outcome Pediatric Complications Fetus ID Race Codes Race Delivery Type F [id number] Vaginal Only Ami Calculation AMI Calculation Method Initial Ami Date Initial Exam Date Initial Exam Provider Initial Ultrasound Date Last Menstrual Period Date Ultra Sound Weeks Gestation Conception by IVF Embryo Age at Transfer Date of Transfer 0 Eighteen To Twenty Week Ami Update Ultra Sound Date Fundal Height At Umbil Quickening Date Ultra Sound Latest Weeks Gestation Final Ami Confirmed By Final Ami Confirmed Date Final Ami Date Ultra Sound Latest Days Gestation 0 0 Menstrual History Last Menstrual Date Menses Monthly On Bcp Conception Prior Menses Frequency Hcg Plus Date Menarche Onset Age Delivery Information Delivery Date Delivery Type Labor Anesthesia Weeks Gestation Incision Type Labor Labor Length Hrs Delivered By Post Complications Tubal Sterilization Discharge Date Comments 1 Discharge Information Feeding Method Contraceptive Method Maternal HG B and HCT Levels Ob Episode Information Episode Created Date Number of Fetuses Patient Bloodtype Patient rh Status Prepregnancy Weight lbs Domestic Partner Domestic Partner Phone Father Name Sewing Machine Tester Status 03/06/20 18 1 piotr davila CLOSED Fetus Data First Name Last Name Admitted to NICU Weight (g) Sex Living Outcome Pediatric Complications Fetus ID Race Codes Race Delivery Type [id number] Ami Calculation AMI Calculation Method Initial Ami Date Initial Exam Date Initial Exam Provider Initial Ultrasound Date Last Menstrual Period Date Ultra Sound Weeks Gestation Conception by IVF Embryo Age at Transfer Date of Transfer 11/01/19 19 03/06/20 18 [email or web address] 03/10/2018 01/24/2018 6 Eighteen To Twenty Week Ami Update Ultra Sound Date Fundal Height At Umbil Quickening Date Ultra Sound Latest Weeks Gestation Final Mai Confirmed By Final Ami Confirmed Date Final Ami Date Ultra Sound Latest Days Gestation 0 [email or web address] 03/11/2018 11/01/19 19 0 Pre-mat Flowsheet Flowsheet Date 03/06/2018 Rosales Score Blood Edema Fundus Height Fundus Units Glucose Ketones Leukocytes Nitrite Labor Signs Protein Cervic Dilation Cervic Effacement Cervic Station Type Weight in lbs Pre/Post Dialysis Refused 139.652419870161 BP Diastolic BP Location Tested BP Systolic BP Type 66 110 sitting Fetus Heart Rate Present Fetus Movement Comments Flowsheet Date 06/08/2018 Rosales Score Blood Edema Fundus Height Fundus Units Glucose Ketones Leukocytes Nitrite Labor Signs Protein Cervic Dilation Cervic Effacement Cervic Station Type Weight in lbs Pre/Post Dialysis Refused 139.115874242130 BP Diastolic BP Location Tested BP Systolic BP Type 62 108 sitting Fetus Heart Rate Present Fetus Movement Comments Menstrual History Last Menstrual Date Menses Monthly On Bcp Conception Prior Menses Frequency Hcg Plus Date Menarche Onset Age 0501/24/2018 true 4 8 13 Delivery Information Delivery Date Delivery Type Labor Anesthesia Weeks Gestation Incision Type Labor Labor Length Hrs Delivered By Post Complications Tubal Sterilization Discharge Date Comments Discharge Information Feeding Method Contraceptive Method Maternal HG B and HCT Levels
--- OUTSIDE RECORDS SUMMARY | 2024-08-25 14:16 | XMS_ITS | Patient Health Summary ---
Author Organization [facility] Address [address] [facility] [place] [address] Care Team Providers Care Cut Off Saw Grader Name Role Phone Domingo Henriquezekta LANDEROS Primary Care Provider [phone] Martinez Haley LANDEROS Unavailable [phone] Note from [facility],non-owned Affiliates and Associated Physician Practices is amultiple site organization consisting of ambulatory clinics and hospital sitesin [place], [place], [place] and [place]. This disclosure is being madepursuant to the Care Everywhere program and may not contain all information available regarding this patient. Last updated 18.[facility] Allergies No known active allergies Medications * Be aware that medications may not be up to date on this document. Alwaysverify current medications with the patient. * Vit-Fe Fumarate-FA ( VITAMIN) 28-0.8 MG tablet Take 1 tablet by mouth once daily * aspirin (ASPIRIN) 81 MG tablet Take 81 mg by mouth once daily * ferrous sulfate 325 (65 FE) MG tablet Take 325 mg by mouth once daily Active Problems Problem Noted Date Diagnosed Date History of HELLP syndrome, currently Supervision of high-risk of young padmini igravida 02/26/2019 Two vessel umbilical cord, antepartum 02/26/2019 Social History Tobacco Use Types Packs/Day Years Used Date Smoking Tobacco: Never Smokeless Tobacco: Never Tobacco Cessation:Counseling Given: Yes Alcohol Use Standard Drinks/Week Comments No 0 (1 standard drink = 0.6 oz pur e alcohol) Sex and Gender Information Value Date Recorded Sex Assigned at Not on file Gender Identity Not on file Sexual Orientation Not on file Last Filed Vital Signs Vital Sign Reading [...] Mass Index 25.68 02/28/2019 11:29 AM CDT Procedures * SONOGRAM - COMPLETE(Performed 03/20/2019) Performed for History of HELLP syndrome, currently ([facility]), Supervision of high-risk of young multigravida ([facility]), Two vessel umbilical cord, antepartum ([facility]) * SONOGRAM - COMPLETE(Performed 02/28/2019) Performed for Encounter for anatomic survey ([facility]), History of HELLP syndrome, currently (H[facility]), Supervision of high-risk of young multigravida (HCC), Two vessel umbilical cord, antepartum ([facility]) Results * SONOGRAM - COMPLETE (03/20/2019 11:20 AM CDT) Only the most recent of2 resultswithin the time period is included. Anatomical Region Laterality Modality Other 03/20/2019 11:2 0 AM CDT Narrative 03/20/2019 12:19 PM CDT ? [facility] ?PHONE: ??FAX: Pat. Name: ?JEFFRY DAVILA No: ?[id number] Study Date: ?? 03/20/2019 ??11:20am , Age: ? 1990, 28 Pregnancies: ?? 3, Para 1, Ab 1 Height: ? 64 in Weight: ? 133 lb LMP: ?Unknown GA by Base: ?? 35w1d ?? AMI: 04/23/2019 GA by US: ? 34w0d ?? AMI: 05/01/2019 GA Selected: ??35w1d (From [facility]) AMI: ?04/23/2019 Referring MD: Sergio Birmingham MD [employer] Science Teacher: ??Alina Parekh, [facility] CPT4: ? 61800,27312 BMI: ?22.83 Hist/Ind: ? Short Long Bones ?HX of HELLP Syndrome ?2 vessel cord MEASUREMENTS & AGE ? GROWTH EVALUATION Measurement ??GA ? Range ? Srce %for GA Ratios ----- ---- ------- BPD ??8.9 cm 35w6d (65q4s-06k0f) Hadl BPD 72% FL/BPD 0.71 (0.71 - 0.87* HC ??31.7 cm 35w5d (10k1t-03o6t) Hadl HC ??28% FL/AC ??0.20 (0.20 - 0.24) AC ??31.0 cm 34w6d (94l6f-82i6b) Hadl AC ??49% HC/AC ??1.02 (0.93 - 1.12) FL ?? 6.3 cm 32w4d (92p0u-99b1v) Hadl FL ??2% CI ? 0.79 (0.70 - 0.86) HL ?? 5.3 cm 30w6d (54p4e-56i5f) Harman HL ??<05 GA for sonogram 34w0d (92p8p-95s8a) ?? Weight Estimate: based on (BPD,HC,AC,FL) Hadlock ?Weight: 2432 gm (2077-2787gm) Had ? : 5lbs, 5oz ? Normal: 2629 gm (1972- 3287gm) Had ? Wt% ? 28% for 35w1d Heart Rate: 112 bpm Amniotic Fluid Index: 19.8cm (07.9-24.9) Q1: 6.7cm ??Q2: 3.5cm ??Q3: 5.3cm ??Q4: 4.4cm ?? Biophysical Profile: 04/05 Breathin ?? Tone: 2 ?? Movement: ??2 ?? AFV: ??2 EVAL, PLACENTA Presentation: cephalic Placenta: anterior Heart Rate: 112 bpm Amniotic Fluid Volume: normal Anatomy!Normal!Abnormal!Suboptimal!Prev. Seen!Comments Cranium ?! ?! ?! ?! ? x ?! Mdl (CSP/Thal! ?! ?! ?! ? x ?! Ventricles ?? ! ?! ?! ?! ? x ?! Choroid Plexu! ?! ?! ?! ? x ?! Cerebellum ?? ! ?! ?! ?! ? x ?! Cisterna M. ??! ?! ?! ?! ? x ?! Profile ?! ?! ?! ?! ? x ?! Nasal Bone ?? ! ?! ?! ?! ? x ?! Lip ?! ?! ?! ?! ? x ?! Spine ?! ?! ?! ?! ? x ?! Lungs ?! ?! ?! ?! ? x ?! 4 Chamber Hea! ?! ?! ?! ? x ?! LVOT ? ! ?? x ??! ?! ?! ?! RVOT ? ! ?! ?! ? x ?! ?! 3 Vessel View! ?! ?! ?! ? x ?! Cross-over ?? ! ?? x ??! ?! ?! ?! Ductal Arch ??! ?! ?! ? x ?! ?! Aortic Arch ??! ?! ?! ?! ? x ?! Caval View ?? ! ?! ?! ?! ? x ?! Situs ?! ?! ?! ?! ? x ?! Diaphragm ?! ?! ?! ?! ? x ?! Stomach ?! ?? x ??! ?! ?! ? x ?! Bowel ?! ?! ?! ?! ? x ?! Kidneys ?! ?? x ??! ?! ?! ? x ?! Bladder ?! ?? x ??! ?! ?! ? x ?! Cord In! ?? x ??! ?! ?! ?! Upper Extremi! ?! ?! ?! ? x ?! Hands ?! ?! ?! ?! ? x ?! Lower Extreme! ?! ?! ?! ? x ?! Feet ? ! ?! ?! ?! ? x ?! External Nancy! ?! ?! ?! ? x ?! Placental Cor! ?! ?! ?! ? x ?! CLINICAL SUMMARY Study Number: 2 ?? A single fetus is seen in the cephalic presentation. ??The measurements today are consistent with what is expected. ??The AMI is based on a prior ultrasound. ??The amniotic fluid volume is normal. ?? anatomy was not seen due to gestational age and position. ?? No structural anomalies are seen. ?? IMPRESSION: Single, live, IUP at 35w1d. ?? growth: Normal ?? Amniotic fluid volume: Normal ?? RECOMMEND: Follow up ultrasound in as clinically indicated ?? Thank you for allowing us the opportunity to care for your patient. ?? Yifan Ruelas MD <Electronic Signature> ??03/20/2019 12:19pm Dary Cui MD Antonio ORDERABLES Care Teams Cut Off Saw Grader Relationship Specialty Start Date End Date Haley Henriquez APRN-CNP [address] [place] [address] PCP - General 07/08/21 Haley Henriquez APRN-CNP [address] [place] [address] Nurse Practitioner Family 07/08/21
--- OUTSIDE RECORDS SUMMARY | 2024-08-25 14:16 | XMS_ITS | Clinical Summary ---
Author Organization [facility] Address [address] [place] [address] Care Team Providers Care Head Setter Name Role Phone Domingo Henriquezekta LANDEROS Primary Care Provider [phone] Martinez Haley LANDEROS Unavailable [phone] [facility],non-owned Affiliates and Associated Physician Practices is amultiple site organization consisting of ambulatory clinics and hospital sitesin [place], [place], [place] and [place]. This disclosure is being madepursuant to the Care Everywhere program and may not contain all information available regarding this patient. Last updated 18.[facility] Allergies No known active allergies Medications * Be aware that medications may not be up to date on this document. Alwaysverify current medications with the patient. Medication Sig Dispensed Refills Start Date End Date Status Vit-Fe Fumarate-FA ( VITAMIN) 28-0.8 MG tablet Take 1 tablet by mouth once daily Active aspirin (ASPIRIN) 81 MG tablet Take 81 mg by mouth once daily Active ferrous sulfate 325 (65 FE) MG tablet Take 325 mg by mouth once daily Active Active Problems Problem Noted Date Diagnosed Date History of HELLP syndrome, currently Overview (02/28/2019): (01/29/19) CBC 10.5/11.0/34.1/239 BUN four/creatinine 0.48/ALT 18/AST 14/T bili 0.2 Assessment & Plan (02/28/2019 1:18 PM CDT): Aspirin for preeclampsia risk reduction Supervision of high-risk of syd [place] igravida 02/26/2019 Overview (02/28/2019): Datinw 2d U/S not c/w LMP A+/RI/hep B NR/HIV neg AFP neg OSB GCT: 109 + MJ (10/10/18) Two vessel umbilical cord, antepartum 02/26/2019 Assessment & Plan (02/28/2019 11:52 AM CDT): Serial growth every four weeks Family History Medical History Relation Name Comments Hypertension Maternal Grandmother CVA Paternal Grandmother Cancer - Other Paternal Grandmother brain Diabetes - Type 2 Paternal Grandmother Depression Sister Thyroid Disease Sister hypothyroid Relation Name Status Comments Maternal Grandmother Paternal Grandmother Sister Social History Tobacco Use Types Packs/Day Years [...] Mass Index 25.68 02/28/2019 11:29 AM CDT Plan of Treatment Health Maintenance Due Date Last Done Comments PAP SMEAR 1989 HIV SCREENING 2004 HEPATITIS C SCREENING 09/15/2007 DTAP/TDAP/TD VACCINES (1 - Tdap) 2008 HEPATITIS B VACCINE (1 of 3 - 19+ 3-dose series) 2008 DEPRESSION SCREENING 08/29/2023 COVID-19 VACCINE ( - 2023-2 5 season) 2024 INFLUENZA VACCINE (#1) 2024 ZOSTER VACCINE (1 of 2) 2039 HIB VACCINE Aged Out No longer eligi ble based on patient's age to complete this topic HPV VACCINE Aged Out No longer eligi ble based on patient's age to complete this topic MENINGOCOCCAL VACCINE Aged Out No kimberley laury eligible based on patient's age to complete this topic PNEUMOCOCCAL VACCINE Aged Out No long er eligible based on patient's age to complete this topic Care Teams Head Setter Relationship Specialty Start Date End Date Haley Henriquez APRN-SPENCER [address] [place] [address] PCP - General 07/08/21 Haley Henriquez APRN-CNP [address] [place] [id number] Nurse Practitioner Family 07/08/21
--- OUTSIDE RECORDS SUMMARY | 2024-08-25 14:16 | XMS_ITS | Encounter Summary ---
Author Organization [facility] Address [address] [place] [address] Care Team Providers Care Battery Builder Name Role Phone Haley Henriquez APRN-SCREEN PRINTING MACHINE OPERATOR HELPER Primary Care Provider [phone] Reason for Visit * Evaluate & Treat (Routine) - Closed Specialty Diagnoses / Procedures Referred By Anthony t Referred To Contact Maternal Medicine Diagnoses Supervision of other high risk pregnancies, unspecified trimester (HCC) Maternal care for other specified problems, unspecified trimester, not applicable or unspecified (HCC) Supervision of with other poor reproductive or obstetric history, unspecified trimester (HCC) Procedures AK FULL ROUT OBSTE CARE,VAGINAL DELIV Orlin Birmingham MD [address] [place] [address] [facility] [address] [place] [address] Referral ID Status Reason Start Date Expiration Date Visits Re quested Visits Authorized [id number] Closed 02/28/2019 08/27/2019 20 20 Encounter Details Date Type Department Care Team (Latest Contact Info) Description 03/20/2019 11:14 AM CDT - 03/20/2019 11:59 PM T Hospital Encounter [facility] [address] [place] [address] Margaret Oshea MD [address] [address] Yifan Ruelas MD Discharge Disposition: Home or Self Care Social History Tobacco Use Types Packs/Day Years Used Date Smoking Tobacco: Never Smokeless Tobacco: Never Alcohol Use Standard Drinks/Week Comments No 0 (1 standard drink = 0.6 oz pur e alcohol) Comments Yes Sex and Gender Information Value Date Recorded Sex Assigned at Not on file Gender Identity Not on file Sexual Orientation Not on file documented as of this encounter Medications at Time of Discharge Medication Sig Dispensed Refills Start Date End Date aspirin (ASPIRIN) 81 MG tablet Take 81 mg by mouth once daily ferrous sulfate 325 (65 FE) MG tablet Take 325 mg by mouth once daily Vit-Fe Fumarate-FA ( VITAMIN) 28-0.8 MG tablet Take 1 tablet by mouth once daily documented as of this encounter Plan of Treatment Not on file documented as of this encounter Procedures Procedure Name Priority Date/Time Associated Diagnosis Comments SONOGRAM - COMPLETE Routine 03/20/2019 11:20 AM CDT History of HELLP syndrome, currently ([facility]) Supervision of high-risk of young multigravida ([facility]) Two vessel umbilical cord, antepartum ([facility]) documented in this encounter Results * SONOGRAM - COMPLETE (03/20/2019 11:20 AM CDT) Anatomical Region Laterality Modality Other 03/20/2019 11:2 0 AM CDT Narrative 03/20/2019 12:19 PM CDT ? [facility] Maternal Medicine ? [facility] ?PHONE: ??FAX: Pat. Name: ?JEFFRY DAVILA No: ?[id number] Study Date: ?? 03/20/2019 ??11:20am , Age: ? 1990, 28 Pregnancies: ?? 3, Para 1, Ab 1 Height: ? 64 in Weight: ? 133 lb LMP: ?Unknown GA by Base: ?? 35w1d ?? AMI: 04/23/2019 GA by US: ? 34w0d ?? AMI: 05/01/2019 GA Selected: ??35w1d (From [facility]) AMI: ?04/23/2019 Referring MD: Sergio Birmingham MD Manager Consumer Insights: ??Alina Parekh, [facility] CPT4: ? 06173,03236 BMI: ?22.83 Hist/Ind: ? Short Long Bones ?HX of HELLP Syndrome ?2 vessel cord MEASUREMENTS & AGE ? GROWTH EVALUATION Measurement ??GA ? Range ? Srce %for GA Ratios ----- ---- ------- BPD ??8.9 cm 35w6d ([id number]) Hadl BPD 72% FL/BPD 0.71 (0.71 - 0.87* HC ??31.7 cm 35w5d (91v4l-65j7x) Hadl HC ??28% FL/AC ??0.20 (0.20 - 0.24) AC ??31.0 cm 34w6d (30s6v-57w3i) Hadl AC ??49% HC/AC ??1.02 (0.93 - 1.12) FL ?? 6.3 cm 32w4d (68d3x-65u3p) Hadl FL ??2% CI ? 0.79 (0.70 - 0.86) HL ?? 5.3 cm 30w6d (86u5v-61c6b) Harman HL ??<05 GA for sonogram 34w0d ([id number]) ?? Weight Estimate: based on (BPD,HC,AC,FL) Hadlock [...] <Electronic Signature> ??03/20/2019 12:19pm Dary Cui MD [facility] ORDERABLES documented in this encounter Visit Diagnoses Diagnosis History of HELLP syndrome, currently (HCC)- Primary with other poor obstetric history Supervision of high-risk of young multigravida ([facility]) Supervision of high-risk of young multigravida Two vessel umbilical cord, antepartum ([facility]) Other umbilical cord complications during labor and delivery, antepartum Encounter for other screening follow-up ([facility]) 35 weeks gestation of ([facility]) state, incidental documented in this encounter Care Teams Battery Builder Relationship Specialty Start Date End Date Haley Henriquez APRN-SCREEN PRINTING MACHINE OPERATOR HELPER [address] [place] [address] PCP - General Nurse Practitioner Family 03/27/1807/07/21 documented as of this encounter
--- OUTSIDE RECORDS SUMMARY | 2024-08-25 14:16 | XMS_ITS | Referral Summary ---
Author Organization [email or web address] Address [address] [place] [address] Care Team Providers Care Financial Services Internship Name Role Phone Domingo Henriquezekta LANDEROS Primary Care Provider [phone]- [phone] Martinez Haely LANDEROS Unavailable [phone] Source Comments [facility] and Associated Physician Practices is amultiple site organization consisting of ambulatory clinics and hospital sitesin [place], [place], [place]. This disclosure is being madepursuant to the Care Everywhere program and may not contain all information available regarding this patient. Last updated 18.[email or web address] Allergies No known active allergies Medications * [...] reduction Supervision of high-risk of syd [place] emmanuel 02/26/2019 Overview (02/28/2019): Datinw 2d U/S not c/w LMP A+/RI/hep B NR/HIV neg AFP neg OSB GCT: 109 + MJ (10/10/18) Two vessel umbilical cord, antepartum 02/26/2019 Assessment & Plan (02/28/2019 11:52 AM CDT): Serial growth every four weeks Social History Tobacco Use Types Packs/Day Years [...] 02/28/2019 11:29 AM CDT Plan of Treatment Not on file Care Teams Financial Services Internship Relationship Specialty Start Date End Date Haley Henriquez APRN-SPENCER [address] [place] [address] PCP - General 07/08/21 Haley Henriquez APRN-SPENCER [address] [place] [address] Nurse Practitioner Family 07/08/21
== END 2024-08-18 14:30 | disposition home or self-care (01) ==
PROVIDERS: Emergency Provider Student in an Organized Health Care Education/Training Program; PCP Nurse Practitioner Adult Health
DX: N20.0 Calculus of kidney (principal)
CPT/HCPCS: 36415; 74176; 80053; 81001; 81025; 85025; 87086; 96361; 96374; 96375; 96376; 99284; A9270; J1171; J1885; J2405; J7120

== ENCOUNTER 2024-12-22 00:25 | Emergency (ER) | payer OTHER, SELFPAY ==
--- NOTE | ~2024-12-22 | CT_ITS ---
EXAMINATION: CT brain wo con DATE: 12/22/2024 04:42 INDICATION: Seizure TECHNIQUE: Computed tomography (CT) of the head was performed without intravenous contrast. Sagittal and coronal reconstructions were performed. The mA was adjusted according to patient size. Iterative reconstruction technique was employed. The dose-length product was 605.33 mGy-cm. COMPARISON: head CT dated 02/16/2023 FINDINGS: No acute intracranial hemorrhage, acute infarction or abnormal extra axial fluid collection. Ventricl es are normal and symmetric. No mass/mass effect. Small left mastoid effusion. The orbits and paranas al sinuses are normal. IMPRESSION: 1. Normal brain. No acute intracranial process. Reviewed, dictated and finalized at location A.
--- NOTE | ~2024-12-22 | CT_ITS ---
EXAMINATION: CT cervical spine wo con DATE: 12/22/2024 04:42 INDICATION: Seizure TECHNIQUE: Computed tomography (CT) of the cervical spine was performed without intravenous contrast. Automated exposure control and iterative reconstruction technique were employed. The dose-length pro duct was 174.24 mGy-cm. COMPARISON: None FINDINGS: Straightening of the normal cervical lordosis. No spondylolisthesis or facet subluxation. Vertebral b florinda and disc heights are normal. No central canal stenosis. Cervical facet and uncovertebral joints a re unremarkable. No neural foraminal stenosis. Cervical soft tissues are unremarkable. Visualized api gianluca of lungs are clear. IMPRESSION: 1. Straightening of the normal cervical lordosis most likely positional although can be seen with mus angelique spasm. No other osseous abnormality. Reviewed, dictated and finalized at location A. IMPRESSION: 1. Straightening of the normal cervical lordosis most likely positional althoug h can be seen with muscle spasm. No other osseous abnormality.
[2024-12-22 00:26] VITALS: BP 114/60; PULSE 89; RESP 20; TEMP 36.7; O2SAT 100
--- OUTSIDE RECORDS SUMMARY | 2024-12-22 00:26 | XMS_ITS | Data Portability ---
Author Organization [facility] [place] Address [address] [place] [address] Assessment Encounter Date Assessment Date Assessment LastModified [...] Procedures None recorded. Surgeries None recorded. Imaging non-stress test [email or web address], [facility] [address], [address], [place], [address], 21:02:46 US, obstetric, biophysical profile + non-stress test [email or web address], [facility] [address], [address], [place], [address], 20:52:48 US, doppler, umbilical artery velocimetry [email or web address], [facility] [address], [address], [place], [address], 20:52:48 Medication Orders None recorded. Patient TargetsNo targets recorded. Patient InstructionsNo instructions recorded. Reason for Referral None Reported. Results Created Date Observation Date Name Description Value Unit Range Abnormal Flag Note LastModifiedBy Organization Detail LastModifiedTime 06/18/2006/18/2021 CBC W/DIF F WBC 11.6 10'3/ uL 3.6-10 .2 high Not Available [facility] (Lab) [address], [place], [address], 06/19/2021 01:47:26 06/18/20 21 06/18/2021 CBC W/DIF F RBC 4.10 10'6/ uL (based on docume nted legal sex) 4.10-5 .30 Not Available [facility] (Lab) [address], [place], [address], 06/19/2021 01:47:26 06/18/2006/18/2021 CBC W/DIF F HGB 11.6 g/dL (based on docume nted legal sex) 11.9-1 5.8 low Not Available [facility] (Lab) [address], [place], [address], 06/19/2021 01:47:26 06/18/2006/18/2021 CBC W/DIF F HCT 37.5 % (based on docume nted legal sex) 37.4-4 8.3 Not Available [facility] (Lab) [address], [place], [address], 06/19/2021 01:47:26 06/18/2006/18/2021 CBC W/DIF F MCV 91.0 fL 82.0-9 9.0 Not Available [facility] (Lab) [address], [place], [address], 06/19/2021 01:47:26 06/18/2006/18/2021 CBC W/DIF F MCH 28.0 pg 27.0-3 3.0 Not Available [facility] (Lab) [address], [place], [address], 06/19/2021 01:47:26 06/18/2006/18/2021 CBC W/DIF F MCHC 31.0 g/dL 32.0-3 6.0 low Not Available [facility] (Lab) [address] [facility], [place], [address], 06/19/2021 01:47:26 06/18/20 21 06/18/2021 CBC W/DIF F RDW 14.0 % 11.0-1 5.0 Not Available [facility] (Lab) [address] [facility] [facility], [place], [address], 06/19/2021 01:47:26 06/18/2006/18/2021 CBC W/DIF F plt 247 10'3/ uL 150-45 0 Not Available [facility] (Lab) [address] [facility], [place], [address], 06/19/2021 01:47:26 06/18/2006/18/2021 CBC W/DIF F MPV 12.1 fL 9.8-12 .7 Not Available [facility] (Lab) [address] [facility] [facility], [place], [address], 06/19/2021 01:47:26 06/18/2006/18/2021 CBC W/DIF F NRBC's 0.00 % 0 Not Available [facility] (Lab) [address] [facility], [place], [address], 06/19/2021 01:47:26 06/18/2006/18/2021 CBC W/DIF F absolute NRBCs 0.0 10'3/ uL 0 Not Available [facility] (Lab) [address] [facility] [facility], [place], [address], 06/19/2021 01:47:26 06/18/2006/18/2021 CBC W/DIF F neutrophils 73.0 % 37.0-7 2.0 high Not Available [facility] (Lab) [address] [facility] [facility], [place], [address], 06/19/2021 01:47:26 06/18/2006/18/2021 CBC W/DIF F lymphocytes 16.0 % 16.0-4 8.0 Not Available [facility] (Lab) [address] [facility], [place], [address], 06/19/2021 01:47:26 06/18/20 21 06/18/2021 CBC W/DIF F monocytes 8.0 % 4.0-14 .0 Not Available [facility] (Lab) [address] [facility], [place], [address], 06/19/2021 01:47:26 06/18/20 21 06/18/2021 CBC W/DIF F eosinophils 2.0 % 0.0-9. 0 Not Available [facility] (Lab) [address] [facility], [place], [address], 06/19/2021 01:47:26 06/18/2006/18/2021 CBC W/DIF F basophils 0.0 % 0.0-2. 0 Not Available [facility] (Lab) [address] [facility], [place], [address], 06/19/2021 01:47:26 06/18/2006/18/2021 CBC W/DIF F immature granulocytes 1.0 % no define d refere nce range Not Available [facility] (Lab) [address] [facility], [place], [address], 06/19/2021 01:47:26 06/18/2006/18/2021 CBC W/DIF F absolute neutrophils 8.4 10'3/ uL 1.1-6. 0 high Not Available [facility] (Lab) [address] [facility], [place], [address], 06/19/2021 01:47:26 06/18/20 21 06/18/2021 CBC W/DIF F absolute lymphocytes 1.9 10'3/ uL 0.7-3. 4 Not Available [facility] (Lab) [address] [facility], [place], [address], 06/19/2021 01:47:26 06/18/2006/18/2021 CBC W/DIF F absolute monocytes 0.9 10'3/ uL 0.3-1. 0 Not Available [facility] (Lab) [address] [facility], [place], [address], 06/19/2021 01:47:26 06/18/2006/18/2021 CBC W/DIF F absolute eosinophils 0.2 10'3/ uL 0.0-0. 6 Not Available [facility] (Lab) [address] [facility], [place], [address], 06/19/2021 01:47:26 06/18/2006/18/2021 CBC W/DIF F absolute basophils 0.0 10'3/ uL 0.0-0. 1 Not Available [facility] (Lab) [address] [facility], [place], [address], 06/19/2021 01:47:26 06/18/2006/18/2021 CBC W/DIF F absolute immature granulocytes 0.10 10'3/ uL 0.00-0 .10 06/19 12:29 AM: P indic ates parti al resul ts on a panel have been relea sed. Addit ional resul ts will follo w. 06/19 12:29 AM: This resul t has been final verif ied. No addit ional or mei ed resul ts are expec dustin. Not Available [facility] (Lab) [address] [facility], [place], [address], 06/19/2021 01:47:26 06/18/2006/18/2021 URIC ACID uric acid 4.1 mg/dL 2.3-6. 6 Not Available [facility] (Lab) [address] [facility], [place], [address], 06/19/2021 01:47:28 06/18/2006/18/2021 CMP(C OMPRE HENSI VE METAB OLIC PANEL ) sodium 138 mmol/ L 133-14 6 Not Available [facility] (Lab) [address] [facility], [place], [address], 06/19/2021 01:47:28 06/18/2006/18/2021 CMP(C OMPRE HENSI VE METAB OLIC PANEL ) potassium 4.0 mmol/ L 3.5-5. 1 Not Available [facility] (Lab) [address] [facility], [place], [address], 06/19/2021 01:47:28 06/18/2006/18/2021 CMP(C OMPRE HENSI VE METAB OLIC PANEL ) chloride 103 mmol/ L 98-107 Not Available [facility] (Lab) [address] [facility], [place], [address], 06/19/2021 01:47:28 06/18/2006/18/2021 CMP(C OMPRE HENSI VE METAB OLIC PANEL ) carbon dioxide 27 mmol/ L 21-31 Not Available [facility] (Lab) [address] [facility], [place], [address], 06/19/2021 01:47:28 06/18/2006/18/2021 CMP(C OMPRE HENSI VE METAB OLIC PANEL ) anion gap 8 mmol/ L 4-13 Not Available [facility] (Lab) [address] [facility], [place], [address], 06/19/2021 01:47:28 06/18/20 21 06/18/2021 CMP(C OMPRE HENSI VE METAB OLIC PANEL ) blood urea nitrogen 7 mg/dL 7-25 Not Available [facility] (Lab) [address], [place], [address], 06/19/2021 01:47:28 06/18/20 21 06/18/2021 CMP(C OMPRE HENSI VE METAB OLIC PANEL ) creatinine 0.62 mg/dL 0.60-1 .30 Not Available [facility] (Lab) [address] [place], [address], 06/19/2021 01:47:28 06/18/20 21 06/18/2021 CMP(C OMPRE HENSI VE METAB OLIC PANEL ) GFR () 136 mL/mi n/1.7 3_m2 60-300 Not Available [facility] (Lab) [address] [facility], [place], [address], 06/19/2021 01:47:28 06/18/2006/18/2021 CMP(C OMPRE HENSI VE METAB OLIC PANEL ) GFR (others) 112 mL/mi n/1.7 3_m2 60-300 Not Available [facility] (Lab) [address] [facility], [place], [address], 06/19/2021 01:47:28 06/18/2006/18/2021 CMP(C OMPRE HENSI VE METAB OLIC PANEL ) calcium 8.3 mg/dL 8.3-10 .5 Not Available [facility] (Lab) [address] [facility], [place], [address], 06/19/2021 01:47:28 06/18/2006/18/2021 CMP(C OMPRE HENSI VE METAB OLIC PANEL ) glucose 76 mg/dL 70-100 Not Available [facility] (Lab) [address] [facility], [place], [address], 06/19/2021 01:47:28 06/18/2006/18/2021 CMP(C OMPRE HENSI VE METAB OLIC PANEL ) protein, total 5.7 g/dL 6.4-8. 3 low Not Available [facility] (Lab) [address] [facility], [place], [address], 06/19/2021 01:47:28 06/18/20 21 06/18/2021 CMP(C OMPRE HENSI VE METAB OLIC PANEL ) albumin 3.4 g/dL 3.5-5. 0 low Not Available [facility] (Lab) [address] [facility], [place], [address], 06/19/2021 01:47:28 06/18/20 21 06/18/2021 CMP(C OMPRE HENSI VE METAB OLIC PANEL ) ALT 7 units /L 9-43 low Not Available [facility] (Lab) [address], [place], [address], 06/19/2021 01:47:28 06/18/2006/18/2021 CMP(C OMPRE HENSI VE METAB OLIC PANEL ) alkaline phosphatase 122 units /L 34-104 high Not Available [facility] (Lab) [address], [place], [address], 06/19/2021 01:47:28 06/18/2006/18/2021 CMP(C OMPRE HENSI VE METAB OLIC PANEL ) AST 11 units /L 13-39 low Not Available [facility] (Lab) [address], [place], [address], 06/19/2021 01:47:28 06/18/2006/18/2021 CMP(C OMPRE HENSI VE [...] will be imple mente d. Not Available [facility] (Lab) [address], [place], [address], 06/19/2021 01:47:28 06/18/2006/18/2021 CULTU RE: GROUP B [...] t Abnor mal: Yes Resul ting Lab: [facility] [address] [facility] [address] Tel: CULTU RE ----- ----- ----- --- Posit rikki Strep tococ cus agala ctiae (Grou p B) (Abno rmal) Clind amyci n is presu med to be resis tant based on detec tion of induc ible clind amyci n resis tance ( D-t est posit rikki ) . Eryth romyc in = resis tant. Not Available [facility] (Lab) [address], [place], [address], 06/22/2021 10:06:09 01/12/20 22 01/11/2022 IMAGE GUIDE D PAP AND HPV REGAR DLESS image guided Pap, HPV regardless of Pap result SEE RESULT S BELOW CASE REPOR T: Cytol ogy Gynec ologi anh Repor t Case: [id number] Autho jess munson Provi mandy: Lizette Alvarez, TIMOHTY Saavedra cted: 01/11 1144 Order ing Locat [...] as clini hui madison nted. Not Available [facility] (Lab) [address], [place], [address], 01/15/2022 19:21:42 05/01/15/2022 HEMOG LOBIN A1C hemoglobin [...] >8.0% Actio n sugge sted Not Available [facility] (Lab) [address], [place], [address], 01/16/2022 03:34:23 06/01/20 21 06/01/2021 non-s tress test No observ ation record ed. [email or web address], [place], [address], 06/01/2021 12:08:36 06/04/20 21 06/04/2021 non-s tress test No observ ation record ed. guiliano [address], [place], [address], 06/04/2021 11:16:47 06/08/2006/08/2021 non-s tress test No observ ation record ed. giuliano [place] [facility] [address], [place], [address], 06/08/2021 12:11:04 06/11/20 21 06/11/2021 non-s tress test No observ ation record ed. giuliano [place] [facility] [address], [place], [address], 06/11/2021 12:38:49 06/15/20 21 06/15/2021 non-s tress test No observ ation record ed. giuliano [place] [address], [place], [address], 06/15/2021 12:09:01 06/18/20 21 06/18/2021 non-s tress test No observ ation record ed. giuliano [place] [address], [place], [address], 06/18/2021 12:09:37 06/22/2006/22/2021 non-s tress test No observ ation record ed. giuliano [place] [address], [place], [address], 06/22/2021 12:00:55 06/25/2006/25/2021 non-s tress test No observ ation record ed. giuliano [place] [address], [place], [address], 06/25/2021 10:13:01 06/25/2006/25/2021 US, ted brinko w-up No observ ation record ed. [email or web address] [place] [address], [place], [address], 06/25/2021 10:45:17 06/25/2006/25/2021 US, ted brinko w-up No observ ation record ed. [email or web address] [address], [place], [address], 06/25/2021 15:09:50 06/29/2006/29/2021 non-s tress test No observ ation record ed. giuliano [place] [address], [place], [address], 06/29/2021 12:22:23 07/02/20 21 07/02/2021 US, obste tric, bioph ysica l profi le + non-s tress test No observ ation record ed. [email or web address] [place] [address], [place], [address], 07/02/2021 13:00:03 07/02/20 21 07/02/2021 US, doppl er, umbil ical arter y veloc imetr y No observ ation record ed. [email or web address] [address], [place], [address], 07/02/2021 12:59:51 07/02/20 21 07/02/2021 US, obste tric, bioph ysica l profi le + non-s tress test No observ ation record ed. DAYANNA [address], [place], [address], 07/04/2021 13:25:36 07/02/20 21 07/02/2021 non-s tress test No observ ation record ed. giuliano [place] [address], [place], [address], 07/02/2021 12:58:09 07/06/20 21 07/06/2021 non-s tress test No observ ation record ed. giuliano [place] [address], [place], [address], 07/06/2021 12:14:09 Result Notes None recorded. Problems Name Problem SNOMED Code Status Onset Date Resolution Date Notes Provider Name and Address Organization Details Recorded Time Normal pregnanc y in multigra la [id number] 4106 Completed 201812/08/2020 Encounte r for suprvsn of normal pregnanc y, first trimeste r;Practi ce ID: 0001 Lexi winslow [facility] 16:46:37 Antenata l maureenin g Completed 201812/08/2020 Encounte r for other specifie d antenata l screenin g;Practi ce ID: 0001 Lexi winslow, [facility] 16:46:10 Antenata l screenin g for malforma tion Completed 201812/08/2020 Encounte r for antenata l screenin g for malforma tions;Pr actice ID: 0001 Lexi winslow, [facility] 16:46:11 Gestatio n period, 25 weeks [id number] Completed 201812/08/2020 25 weeks gestatio n of pregnanc y;Practi ce ID: 0001 Lexi winslow, [facility] 16:46:21 Gestatio n period, 28 weeks [id number] Completed 201812/08/2020 28 weeks gestatio n of pregnanc y;Practi ce ID: 0001 Lexi winslow, [facility] 16:46:[address] Concept Completed 201812/08/2020 Matern care for abnlt fetl hrt rate or rhym, 3rd tri, unsp;Pra ctice ID: 0001 Lexi winslow, [facility] 16:46:46 Anomaly of placenta Completed 201812/08/2020 Other malforma tion of placenta , third trimeste r;Practi ce ID: 0001 Lexi winslow, [facility] 16:46:08 Gestatio n period, 32 weeks [id number] Completed 201812/08/2020 32 weeks gestatio n of pregnanc y;Practi ce ID: 0001 Lexi Angulo nayla, [facility] 16:46:24 Gestatio n period, 10 weeks [id number] Completed 201812/08/2020 10 weeks gestatio n of pregnanc y;Record ed Elsewher e: No Locat ion: [facility] S ource: EHR Service Clerk abel: N Practi ce ID: 0001 Harrison lable Time: 10:00:00 AM Lexi winslow, [facility] 16:46:20 Secondar y amenorrh ea [id number] Completed 201712/08/2020 Secondar y amenorrh ea;Pract ice ID: 0001 Lexi winslow, [facility] 16:46:42 Pregnanc y detectio n examinat ion Completed 201712/08/2020 Encounte r for pregnanc y test, result positive ;Practic e ID: 0001 Lexi winslow, [facility] 16:46:40 Missed miscarri age [id number] Completed 201712/08/2020 Missed ;Practic e ID: 0001 Lexi winslow, [facility] 16:46:36 Finding of contents of cervix 350654742 Completed 201712/08/2020 Weeks of gestatio n of pregnanc y not specifie d;Practi ce ID: 0001 Lexi winslow, [facility] 16:46:17 Pregnanc y test negative 509052446 Completed 201712/08/2020 Encounte r for pregnanc y test, result negative ;Practic e ID: 0001 Lexi winslow, [facility] 16:46:41 Gestatio n less than 9 weeks 291521127 Completed 201812/08/2020 Less than 8 weeks gestatio n of pregnanc y;Practi ce ID: 0001 Lexi winslow, [facility] 16:46:18 Complica tion of pregnanc y, childbir th and/or puerperi um [id number] Completed 201812/08/2020 Oth diseases and conditio ns compl preg/chl dbrth;Pr actice ID: 0001 Lexi winslow, [facility] 16:46:50 Pelvic and perineal pain 772088806 Completed 201812/08/2020 Pelvic and perineal pain;Pra ctice ID: 0001 Lexi winslow, [facility] 16:46:38 Evaluati on finding Completed 201812/08/2020 Hematuri a, unspecif ied;Prac alanna ID: 0001 Lexi winslow, [facility] 16:46:14 Gestatio n period, 8 weeks [id number] Completed 201812/08/2020 8 weeks gestatio n of pregnanc y;Practi ce ID: 0001 Lexi winslow, [facility] 16:46:32 Gestatio n period, 33 weeks [id number] Completed 201812/08/2020 33 weeks gestatio n of pregnanc y;Record ed Elsewher e: No Locat ion: Isiah wilcox [facility] S ource: EHR Service Clerk abel: N Practi ce ID: 0001 Harrison lable Time: 01:00:00 PM Lexi winslow [facility] 16:46:25 Lochia finding Completed 201812/08/2020 Encounte r for routine postpart um follow-u p;Record ed Elsewher e: No Locat ion: Isiah wilcox [facility] S ource: EHR Service Clerk abel: N Practi ce ID: 0001 Harrison lable Time: 11:15:00 AM Lexi winslow [facility] 16:46:34 Gestatio n period, 37 weeks [id number] Completed 201812/08/2020 37 weeks gestatio n of pregnanc y;Record ed Elsewher e: No Locat ion: Isiah wilcox [facility] S ource: EHR Service Clerk abel: N Sandyti ce ID: 0001 Harrison lable Time: 02:00:00 PM Lexi winslow [facility] 16:46:31 Gestatio n period, 36 weeks [id number] Completed 201812/08/2020 36 weeks gestatio n of pregnanc y;Record ed Elsewher e: No [facility] S ource: EHR Service Clerk abel: N Sandyti ce ID: 0001 Harrison lable Time: 02:00:00 PM Lexi winslow [facility] 16:46:30 Gestatio n period, 35 weeks [id number] Completed 201812/08/2020 35 weeks gestatio n of pregnanc y;Record ed Elsewher e: No [facility] S ource: EHR Service Clerk abel: N Practi ce ID: 0001 Harrison lable Time: 11:30:00 AM Lexi winslow, [facility] 16:46:28 Gestatio n period, 34 weeks [id number] Completed 201812/08/2020 34 weeks gestatio n of pregnanc y;Record ed Elsewher e: No Locat ion: Isiah wilcox [facility] S ource: EHR Service Clerk abel: N Practi ce ID: 0001 Harrison lable Time: 03:00:00 PM Lexi winslow [facility] 16:46:27 Educatio n Completed 201812/08/2020 Encounte r for other general counseli ng and advice on contrace ption;Re corded Elsewher e: No Locat ion: [facility] S ource: EHR Service Clerk abel: N Practi ce ID: 0001 Harrison lable Time: 11:15:00 AM Lexi winslow, [facility] 16:46:[address] Concept Completed 201812/08/2020 Encntr for general adult medical exam w/o abnormal findings ;Recorde d Elsewher e: No [facility]ce: EHR Service Clerk abel: N Practi ce ID: 0001 Harrison lable Time: 10:15:00 AM Lexi winslow, [facility] 16:46:[address] Concept Completed 201812/08/2020 Encntr for escalation engineer exam (general ) (routine ) w/o abn findings ;Recorde d Elsewher e: No Locat ion: Isiah wilcox [facility] S ource: EHR Service Clerk abel: N Practi ce ID: 0001 Harrison lable Time: 10:15:00 AM Lexi winslow, [facility] 16:46:48 Umbilicu s finding Completed 201812/08/2020 Labor and delivery complica dustin by oth cord comp, unsp;Pra ctice ID: 0001 Lexi winslow, [facility] 16:46:51 finding Completed 201812/08/2020 Matern care for oth or susp poor fetl grth, third tri, unsp;Pra ctice ID: 0001 Lexi winslow, [facility] 16:46:15 Single live from singleto n pregnanc y [id number] Completed 201812/08/2020 Single live ;Pr actice ID: 0001 Lexi winslow, [facility] 16:46:44 Pregnanc y 27227351 Completed 202007/16/2021 Sandra Lau hl null, [facility] 1 14:41:11 History of growth retardat ion [id number] 108 Completed h/o IUGR with 2 VC - 10/28 u/s shows low NL growth 13% 5#8z Sandra Lau hl null, [facility] 1 14:41:04 HELLP syndrome [id number] Completed first preg - on ASA Sandra Solimantie hl null, [facility] 14:41:05 Cyst of right ovary [id number] 805970 Completed 5cm simple. torsion precauti ons given. Sandra Lau hl null, [facility] 14:41:05 HELLP syndrome 86931999 Active first preg - on ASA Sandra Solimantie hl null, [facility] 14:41:05 Cyst of right ovary [id number] 355336 Active 5cm simple. torsion precauti ons given. Sandra Solimantie hl null, [facility] 14:41:05 History of growth retardat ion 86087076331 108 Active h/o IUGR with 2 VC - 10/28 u/s shows low NL growth 13% 5#8z Sandra Solimantie hl null, [facility] 14:41:04 Gestatio nal diabetes mellitus 54451779 Completed INSULIN now - 8u Sandra Lau hl null, [facility] 14:41:05 Problem Notes None recorded. Procedures Surgical History Date Name Laterality Status Provider Name and Address Organization Details Recorded Time 12/08/2020 Date of Last Pap Smear completed Lexi Angulo [facility] 12/08/2020 17:47:04 Imaging Results Imaging Date Name Status LastModified by [facility] Details LastModified Time 06/01/2021 non-stress test completed [email or web address], [place], [address], 06/01/2021 12:08:36 06/04/2021 non-stress test completed giuliano [address]am, [place], [address], 06/04/2021 11:16:47 06/08/2021 non-stress test completed giuliano [address], [place], [address], 06/08/2021 12:11:04 06/11/2021 non-stress test completed giuliano [address]am, [place], [address], 06/11/2021 12:38:49 06/15/2021 non-stress test completed [address], [place], [address], 06/15/2021 12:09:01 06/18/2021 non-stress test completed [address], [place], [address], 06/18/2021 12:09:37 06/22/2021 non-stress test completed [address], [place], [address], 06/22/2021 12:00:55 06/25/2021 non-stress test completed [address], [place], [address], 06/25/2021 10:13:01 06/25/2021 US, obstetric, [facility] [address], [place], [address], 06/25/2021 10:45:17 06/25/2021 US, obstetric, follow-up completed [email or web address] [address], [place], [address], 06/25/2021 15:09:50 06/29/2021 non-stress test completed giuliano [place] [address], [place], [address], 06/29/2021 12:22:23 07/02/2021 US, obstetric, biophysical profile + non-stress test completed [address] [facility] [address], [place], [address], 07/02/2021 13:00:03 07/02/2021 US, doppler, umbilical artery velocimetry completed [address] [facility] [address], [place], [address], 07/02/2021 12:59:51 07/02/2021 US, obstetric, biophysical profile + non-stress test completed DAYANNA Gloria [address], [place], [address], 07/04/2021 13:25:36 07/02/2021 non-stress test completed [address], [place], [address], 07/02/2021 12:58:09 07/06/2021 non-stress test completed [address], [place], [address], 07/06/2021 12:14:09 Procedure Notes None recorded. Medical [...] Prescrib ed Elsewher e: No Locat ion: [facility] By: sandra mane DateTime : 10/16/19 19 01:02:41 PM Not Available Not Available Not Available misoprost ol [address] four tablets in the vagina 09/06 completed Prescrib ed Elsewher e: No Locat ion: [facility] By: sandra mane DateTime : 03/28/20 18 04:30:00 PM Not Available Not Available Not Available insulin syringe U-100 with needle 0.3 mL 31 gauge x 5/16 07/31 completed Not Available Not Available Not Available aspirin 08/06 completed Not Available Not Available Not Available active Not Available Not Avai lable Not Available FreeStyle Christiana kit test bloodsug ars 4x daily 07/31 completed Not Available Not Available Not Available FreeStyle Lite Strips 07/31 completed Not Available Not Available Not Available Blisovi Fe 09/17 (28) 1 mg-20 mcg (21)/75 mg (7) tablet take 1 tablet by oral route every day 12/08 completed Prescrib ed Elsewher e: No Locat ion: [facility] odify By: pio mane DateTime : 05/07/20 19 11:15:00 AM Not Available Not Available Not Available Vitals Date Recorded Body height Body mass index (BMI) Body weight Systolic blood pressure Diastolic blood pressure Provider Name and Address Organization Details Last Updated DateTime 07/02/2021 167.64 cm 24.4 kg/m2 78694.44 787 g 105 mm[Hg] 69 mm[Hg] Lexi Angulo [facility] 12:04:08 Date Recorded Body height Systolic blood pressure Diastolic blood pressure Provider Name and Address Organization Details Last Updated DateTime 07/06/2021 167.64 cm 122 mm[Hg] 73 mm[Hg] Lexi Angulo [facility] 07/06/2021 12:09:52 Date Recorded Body weight Provider Name an d Address Organization Details Last Updated DateTime 07/06/2021 92120.21936 g Kaci Adame [facility] 07/06/2021 15:19:51 Date Recorded Systolic blood pressure Diastolic blood pressure Provider Name and Address Organization Details Last Updated DateTime 07/06/2021 122 mm[Hg] 73 mm[Hg] Antonio Leigh [facility] 07/06/2021 11:38:44 Date Recorded Body height Body mass index (BMI) Body weight Systolic blood pressure Diastolic blood pressure Provider Name and Address Organization Details Last Updated DateTime 08/06/2021 167.64 cm 23.6 kg/m2 12574.49 g 102 mm[Hg] 69 mm[Hg] Lexi Doran [facility] 09:53:19 Date Recorded Body height Body mass index (BMI) Body weight Systolic blood pressure Diastolic blood pressure Provider Name and Address Organization Details Last Updated DateTime 01/11/2022 167.64 cm 23.4 kg/m2 64222.89 g 118 mm[Hg] 73 mm[Hg] Myriam Villase [facility] 2 11:56:59 Social History Question Answer Notes LastModified by Organizat ion Details LastModified Time Tobacco Smoking Status Never Smoker Kelly winslow [facility] 03/03/2021 15:13:35 Do You Have An Advance Directive? No Information n ot available 03/03/2021 What Is Your Level Of Alcohol Consumption? None [email or web address] Information not available 03/03/2021 Are You Blind Or Do You Have Difficulty Seeing? No [email or web address] Information n ot available 03/03/2021 What Is Your Level Of Caffeine Consumption? Heavy [email or web address] Information not available 03/03/2021 How Much Tobacco Do You Chew? None [email or web address] Information not available 03/03/2021 In The 14 Days Before Symptom Onset, Have You Had Close Contact With A Laboratory-confirm ed COVID-19 While That Case Was Ill? No [email or web address] Information n ot available 03/03/2021 In The 14 Days Before Symptom Onset, Have You Had Close Contact With A Person Who Is Under Investigation For COVID-19 While That Person Was Ill? No [email or web address] Information not available 03/03/2021 Have You Been To An Area Known To Be High Risk For COVID-19? No [email or web address] Information not available 03/03/2021 Are You Deaf Or Do You Have Serious Difficulty Hearing? No [email or web address] Information not available 03/03/2021 What Type Of Diet Are You Following? REGULAR [email or web address] Information n ot available 03/03/2021 What Is The Highest Grade Or Level Of School You Have Completed Or The Highest Degree You Have Received? [id number] [email or web address] Information not available 03/03/2021 Are There Any Guns Present In Your Home? No [email or web address] Information not available 03/03/2021 Do You Use Protection During Sex? No [email or web address] Information not available 03/03/2021 Do You Use Your Seat Belt Or Car Seat Routinely? Yes [email or web address] Information not available 03/03/2021 Do You Have Smoke And Carbon Monoxide Detectors In Your Home? Yes [email or web address] Information not available 03/03/2021 How Much Tobacco Do You Smoke? No [email or web address] Information not available 03/03/2021 Do You Feel Stressed (tense, Restless, Nervous, Or Anxious, Or Unable To Sleep At Night)? [id number] [email or web address] Information not available 03/03/2021 Do You Use Any Illicit Or Recreational Drugs? No [email or web address] Information not available 03/03/2021 Do You Use Sunscreen Routinely? Yes [email or web address] Information not available 03/03/2021 Have You Used IV Drugs? No [email or web address] Information not available 03/03/2021 Sex: Unknown Functional Status Question Answer Note LastModified by Organizat ion Details LastModified Time Do you have difficulty walking or climbing stairs? No Information not available 01/11/2022 Are you able to walk? YESWOREST [email or web address] Information not available 03/03/2021 Are you able to care for yourself? Yes Information not available 01/11/2022 Do you have difficulty dressing or bathing? No Information not available 01/11/2022 What is your exercise level? Moderate [email or web address] Information not available 03/03/2021 Mental Status None recorded. Family History Relationship Description Onset Age of this Age Resolved Age Notes LastModified by Organization Details LastModified Time Maternal Grandfather Hypercholest [email or web address] Not available 2020 15:14:24 Maternal Grandmother Hypertensive disorder [email or web address] Not available 2020 15:14:40 Mother Hypertensive disorder [email or web address] Not available 2020 15:14:53 Maternal Uncle Malignant neoplasm of urinary bladder [email or web address] Not available 2020 14:43:29 Paternal Grandmother Diabetes mellitus Not available 2020 15:15:31 Sister Disorder of thyroid gland [email or web address] Not available 2020 15:15:42 Medical History Condition Response Allergies (Food, seasonal, environmental ) N Other Y Drug/Latex Allergies/Reactions N Blood Transfusion N Breast Cancer N Dermatologic Disorders N Lung Disease N Defects or Inherited Disease N Breast Problem N Gestational Diabetes N Hematologic disorders N Anesthesia Complications N History of STI N Deep Vein Thrombosis N Polycystic ovary syndrome N Anxiety Disorder Y Autoimmune disease N Arthritis N Polyps N Infertility N Acid Reflux (GERD) N Cancer N Varicosities N Stroke N Neurologic/Epilepsy N Endometriosis N High Cholesterol N Fibromyalgia N Headaches Y Kidney Disease N Heart Problems N Thyroid Problems N Kidney or Bladder Problems N GI Problems N Eating Disorder [...] Diagnosis/Indication Diagnosis SNOMED-CT Code Diagnosis ICD10 Code Diagnosis Note [id number] Nayeli Benito [facility] [address],[place] [address] 11/27/2020 17:24:27 12/01/2020 13:40:52 Uncertain viability of 160602308 O36.80X0 Z3A.01 [id number] Kaci Adame [facility] [address],[place] [address] 12/09/2020 14:27:38 12/09/2020 16:08:48 Gynecologic examination 54835128 Z01.419 test positive 362921680 Z32.01 Risk factors addressed: Tobacco Cessation, Safe Sexual Practices, environmen gopi, work hazards, travel restrictio ns, seat belt use. Eat a health well balanced diet, avoid alcohol, tobacco, and street drugs. Engage in daily low impact exercise, avoid temperatur e extremes, and cat, rodent, and bird feces. Avoid travel to areas where zika virus is a concern. Offered cf/sma/nip t. Desires NIPTdefini tely. Considerin g cf/sma. Handouts given and discussed with patient. Childbirth classes recommende d. New OB sheet given. Will start baby aspirin daily. Baseline labs with normal 12 week labs. If previous , counseling . Pt verbalizes that she understand s the importance of above instructio ns. All questions were answered. Patient reminded to have annual well woman examinatio n and address [facility] . [id number] Rhonda Dahl [facility] [address],[place] [address] 12/09/2020 14:24:23 12/09/2020 23:45:02 [id number] Nayeli Benito [facility] [address],[place] [address] 01/06/2021 14:43:14 01/06/2021 15:34:27 screening 889804811 Z36.82 [id number] Bibi Vaughn MD [facility] [address],[place] [address] 01/06/2021 14:43:43 01/06/2021 15:34:40 Routine care 002686719 Z34.91 Cyst of right ovary 1223 003755 6172237 N83.201 History of growth retardation 6937884312 9108 Z87.59 HELLP syndrome 03003174 O14.25 [id number] [facility] [address],[place] [address] 02/03/2021 15:19:39 02/03/2021 17:50:35 Routine care 304649446 Z34.92 [id number] [facility] [address],[place] [address] 03/03/2021 13:59:34 03/03/2021 15:43:37 Routine care 234160402 Z34.[id number] [facility] [address],[place] [address] 03/03/2021 13:58:21 03/03/2021 14:51:01 screening for malformation 361843536 Z36.3 [id number] [facility] [address],[place] [address] 04/01/2021 16:12:07 04/01/2021 18:23:12 Routine care 186086370 Z34.92 [id number] [facility] [address],[place] [address] 04/30/2021 11:52:11 05/04/2021 22:27:10 [id number] Bibi Vaughn MD [facility] [address] [address] 05/13/2021 11:23:15 05/13/2021 13:47:21 History of growth retardation 8353474080 9108 Z87.59 Gestationa l diabetes mellitus class A1 90276931 O24.410 [id number] Jewels Silver [facility] [address] [address] 05/19/2021 11:59:06 05/19/2021 14:39:13 Gestational diabetes mellitus class A1 44706769 O24.410 Pt here for diet teaching. Went over ideal ranges for FBS and pp BS. Went over carb counting and carb ranges for each meal/snack . Pt picked up glucometer and has been checking sugars since 05/07/21. Pt has missed checking some pp values, but the rest are all WNL. Informed pt of importance of checking BS QID consistent ly. 4 fasting levels are elevated, but they aren't consistent . Told pt to continue checking BS QID and adjusting diet to follow low carb diet to try to keep BS within normal range. Pt admits she is very, very picky and very particular about the food she eats. Pt states she only eats carbs and she doesn't like any meat really. Pt likes peanut butter and will try to incorporat e this into diet more. Tried to suggest hummus, beans, cheese, cottage cheese, cream cheese, nuts, etc and pt does not like any of this. Told pt to just try to follow low carb diet as best as she can. Explained to pt how to check serving sizes to stay inside carb ranges. Pt does like eggs and godoy and told pt this would be a good meal for her and can add some carbs to this also. Pt only drinks Pepsi. Told pt we want to decrease soda intake and no juice. Told pt to try to drink more water and can try carbonated , flavored water instead of soda. Pt doesn't like flavored water. Pt said she will just try to figure it out. Pt aware if sugars aren't controlled by diet we would discuss starting insulin. Suggested high protein snack before bed and exercise to help a few of her fasting levels. Told pt she can go online to [employer] for meal options or to look up low carb meal recipes online for ideas as well. . Went over NST schedule with pt and importance of keeping these appts and checking BS for her and baby's health. Informed of risks of GDM such as LGA, poly, and stillbirth . Pt aware we recommend 2hr GTT 6 wks pp to make sure GDM resolved. Pt will bring in sugars to first NST/OB/ult rasound appointmen t next week on 05/28/2021 . Pts questions were answered [place] [id number] Kaci Adame [facility] [address] [address] 05/28/2021 12:16:47 06/01/2021 20:09:35 Routine care 736218318 Z34.92 [id number] Nayeli Benito [facility] [address] [address] 05/28/2021 11:51:34 05/28/2021 13:37:57 Gestational diabetes mellitus class A1 41923112 O24.410 Z3A.32 Pt here for diet teaching. Went over ideal ranges for FBS and pp BS. Went over carb counting and carb ranges for each meal/snack . Pt picked up glucometer and has been checking sugars since 05/07/21. Pt has missed checking some pp values, but the rest are all WNL. Informed pt of importance of checking BS QID consistent ly. 4 fasting levels are elevated, but they aren't consistent . Told pt to continue checking BS QID and adjusting diet to follow low carb diet to try to keep BS within normal range. Pt admits she is very, very picky and very particular about the food she eats. Pt states she only eats carbs and she doesn't like any meat really. Pt likes peanut butter and will try to incorporat e this into diet more. Tried to suggest hummus, beans, cheese, cottage cheese, cream cheese, nuts, etc and pt does not like any of this. Told pt to just try to follow low carb diet as best as she can. Explained to pt how to check serving sizes to stay inside carb ranges. Pt does like eggs and godoy and told pt this would be a good meal for her and can add some carbs to this also. Pt only drinks Pepsi. Told pt we want to decrease soda intake and no juice. Told pt to try to drink more water and can try carbonated , flavored water instead of soda. Pt doesn't like flavored water. Pt said she will just try to figure it out. Pt aware if sugars aren't controlled by diet we would discuss starting insulin. Suggested high protein snack before bed and exercise to help a few of her fasting levels. Told pt she can go online to ADA for meal options or to look up low carb meal recipes online for ideas as well. . Went over NST schedule with pt and importance of keeping these appts and checking BS for her and baby's health. Informed of risks of GDM such as LGA, poly, and stillbirth . Pt aware we recommend 2hr GTT 6 wks pp to make sure GDM resolved. Pt will bring in sugars to first NST/OB/ult rasound appointmen t next week on 05/28/2021 . Pts questions were answered [place] [address] [place] [address] [address] 05/28/2021 11:52:05 05/28/2021 14:06:19 Gestational diabetes mellitus class A1 31943232 O24.410 Pt here for diet teaching. Went over ideal ranges for FBS and pp BS. Went over carb counting and carb ranges for each meal/snack . Pt picked up glucometer and has been checking sugars since 05/07/21. Pt has missed checking some pp values, but the rest are all WNL. Informed pt of importance of checking BS QID consistent ly. 4 fasting levels are elevated, but they aren't consistent . Told pt to continue checking BS QID and adjusting diet to follow low carb diet to try to keep BS within normal range. Pt admits she is very, very picky and very particular about the food she eats. Pt states she only eats carbs and she doesn't like any meat really. Pt likes peanut butter and will try to incorporat e this into diet more. Tried to suggest hummus, beans, cheese, cottage cheese, cream cheese, nuts, etc and pt does not like any of this. Told pt to just try to follow low carb diet as best as she can. Explained to pt how to check serving sizes to stay inside carb ranges. Pt does like eggs and godoy and told pt this would be a good meal for her and can add some carbs to this also. Pt only drinks Pepsi. Told pt we want to decrease soda intake and no juice. Told pt to try to drink more water and can try carbonated , flavored water instead of soda. Pt doesn't like flavored water. Pt said she will just try to figure it out. Pt aware if sugars aren't controlled by diet we would discuss starting insulin. Suggested high protein snack before bed and exercise to help a few of her fasting levels. Told pt she can go online to ADA for meal options or to look up low carb meal recipes online for ideas as well. . Went over NST schedule with pt and importance of keeping these appts and checking BS for her and baby's health. Informed of risks of GDM such as LGA, poly, and stillbirth . Pt aware we recommend 2hr GTT 6 wks pp to make sure GDM resolved. Pt will bring in sugars to first NST/OB/ult rasound appointmen t next week on 05/28/2021 . Pts questions were answered and pt verbalized understand ing. LISA newton [address] Jewels Silver [facility] [address],[place] [address] 06/01/2021 11:27:14 06/01/2021 12:58:25 Gestational diabetes mellitus class A1 62063275 O24.410 [id number] [facility] [address],[place] [address] 06/04/2021 10:35:37 06/04/2021 11:17:37 Gestational diabetes mellitus class A1 74119282 O24.410 [id number] Sergio Birmingham MD [facility] [address],[place] [address] 06/04/2021 10:36:24 06/04/2021 11:37:55 Routine care 980752140 Z34.83 [id number] [facility] [address],[place] [address] 06/08/2021 11:32:22 06/08/2021 12:26:31 Gestational diabetes mellitus class A1 11273911 O24.410 [id number] Jewels Silver [facility] [address],[place] [address] 06/09/2021 16:59:40 06/15/2021 18:12:08 Gestational diabetes mellitus class A2 28811484 O24.414 Pt here for insulin teaching. Pt needs 5u NPH @ HS r/t multiple elevated fasting levels. Went over insulin syringe with pt and how to determine the proper amount of insulin she needs and how to read insulin syringe. Went over how to administer insulin. Told pt to clean vial and injection site. Demonstrat ed to pt how to draw up 5u of insulin and how to give SQ inj. Pt properly demonstrat ed back to me how to draw up 5u of insulin. Also had pt demonstrat e to me how to draw up 8u and 10u of insulin if we go up on her dose. Pts questions were answered and pt verbalized understand ing. LISA newton [address] [facility] [address],[place] [address] 06/11/2021 11:57:15 06/12/2021 14:04:53 Routine care 317128785 Z34.92 Gestationa l diabetes mellitus 11237701 O24.414 [id number] [facility] [address],[place] [address] 06/11/2021 11:58:12 06/11/2021 12:52:23 Gestational diabetes mellitus class A1 21022911 O24.410 [id number] [facility] [address],[place] [address] 06/15/2021 11:31:36 06/15/2021 12:31:07 Gestational diabetes mellitus class A2 54232991 O24.414 Pt here for insulin teaching. Pt needs 5u NPH @ HS r/t multiple elevated fasting levels. Went over insulin syringe with pt and how to determine the proper amount of insulin she needs and how to read insulin syringe. Went over how to administer insulin. Told pt to clean vial and injection site. Demonstrat ed to pt how to draw up 5u of insulin and how to give SQ inj. Pt properly demonstrat ed back to me how to draw up 5u of insulin. Also had pt demonstrat e to me how to draw up 8u and 10u of insulin if we go up on her dose. Pts questions were answered [place] [address] Kaci Adame [facility] [address],[place] [address] 06/18/2021 11:35:21 06/18/2021 15:03:22 Routine care 182802781 Z34.92 - induced hypertension 18486041 O13.9 [id number] [facility] [address],[place] [address] 06/18/2021 11:34:11 06/18/2021 13:10:43 Gestational diabetes mellitus class A2 [id number] O24.414 Pt here for insulin teaching. Pt needs 5u NPH @ HS r/t multiple elevated fasting levels. Went over insulin syringe with pt and how to determine the proper amount of insulin she needs and how to read insulin syringe. Went over how to administer insulin. Told pt to clean vial and injection site. Demonstrat ed to pt how to draw up 5u of insulin and how to give SQ inj. Pt properly demonstrat ed back to me how to draw up 5u of insulin. Also had pt demonstrat e to me how to draw up 8u and 10u of insulin if we go up on her dose. Pts questions were answered and [place] [id number] [facility] [address],[place] [address] 06/22/2021 11:32:16 06/22/2021 12:29:52 Gestational diabetes mellitus class A2 89942089 O24.414 Pt here for insulin teaching. Pt needs 5u NPH @ HS r/t multiple elevated fasting levels. Went over insulin syringe with pt and how to determine the proper amount of insulin she needs and how to read insulin syringe. Went over how to administer insulin. Told pt to clean vial and injection site. Demonstrat ed to pt how to draw up 5u of insulin and how to give SQ inj. Pt properly demonstrat ed back to me how to draw up 5u of insulin. Also had pt demonstrat e to me how to draw up 8u and 10u of insulin if we go up on her dose. Pts questions were answered [place] [address] Kaci Adame [facility] [address],[place] [address] 06/25/2021 09:31:31 06/25/2021 11:48:58 Routine care 191504797 Z34.92 [id number] Nayeli [facility] [address],[place] [address] 06/25/2021 09:31:07 06/25/2021 10:24:26 Gestational diabetes mellitus class A1 73666457 O24.414 Z3A.36 [id number] [facility] [address],[place] [address] 06/25/2021 09:31:08 06/25/2021 10:15:02 Gestational diabetes mellitus class A2 69024290 O24.414 Pt here for insulin teaching. Pt needs 5u NPH @ HS r/t multiple elevated fasting levels. Went over insulin syringe with pt and how to determine the proper amount of insulin she needs and how to read insulin syringe. Went over how to administer insulin. Told pt to clean vial and injection site. Demonstrat ed to pt how to draw up 5u of insulin and how to give SQ inj. Pt properly demonstrat ed back to me how to draw up 5u of insulin. Also had pt demonstrat e to me how to draw up 8u and 10u of insulin if we go up on her dose. Pts questions were answered [place] [address] [facility] [address],[place] [address] 06/29/2021 11:31:59 06/29/2021 12:32:13 Gestational diabetes mellitus class A2 [id number] O24.414 Pt here for insulin teaching. Pt needs 5u NPH @ HS r/t multiple elevated fasting levels. Went over insulin syringe with pt and how to determine the proper amount of insulin she needs and how to read insulin syringe. Went over how to administer insulin. Told pt to clean vial and injection site. Demonstrat ed to pt how to draw up 5u of insulin and how to give SQ inj. Pt properly demonstrat ed back to me how to draw up 5u of insulin. Also had pt demonstrat e to me how to draw up 8u and 10u of insulin if we go up on her dose. Pts questions were answered [place] [address] [facility] [address],[place] [address] 07/02/2021 11:29:02 07/02/2021 16:04:45 Routine care 592875271 Z34.92 [id number] Sheela Meghann [facility] [address],[place] [address] 07/02/2021 11:28:24 07/02/2021 12:29:53 Small for gestational age fetus 131824597 O36.5930 O24.410 Z3A.37 [id number] [facility] [address],[place] [address] 07/02/2021 11:29:25 07/02/2021 13:23:41 Gestational diabetes mellitus class A2 [id number] O24.414 Pt here for insulin teaching. Pt needs 5u NPH @ HS r/t multiple elevated fasting levels. Went over insulin syringe with pt and how to determine the proper amount of insulin she needs and how to read insulin syringe. Went over how to administer insulin. Told pt to clean vial and injection site. Demonstrat ed to pt how to draw up 5u of insulin and how to give SQ inj. Pt properly demonstrat ed back to me how to draw up 5u of insulin. Also had pt demonstrat e to me how to draw up 8u and 10u of insulin if we go up on her dose. Pts questions were answered [place] [address] [facility] [address],[place] [address] 07/06/2021 11:34:09 07/07/2021 12:42:36 Routine care [id number] Z34.92 [id number] [facility] [address],[place] [address] 07/06/2021 11:33:13 07/06/2021 12:32:34 Gestational diabetes mellitus class A2 11587064 O24.414 Pt here for insulin teaching. Pt needs 5u NPH @ HS r/t multiple elevated fasting levels. Went over insulin syringe with pt and how to determine the proper amount of insulin she needs and how to read insulin syringe. Went over how to administer insulin. Told pt to clean vial and injection site. Demonstrat ed to pt how to draw up 5u of insulin and how to give SQ inj. Pt properly demonstrat ed back to me how to draw up 5u of insulin. Also had pt demonstrat e to me how to draw up 8u and 10u of insulin if we go up on her dose. Pts questions were answered [place] [address] Kaci Adame [facility] [address],[place] [address] 08/06/2021 09:47:20 08/06/2021 10:33:06 state 11296382 Z39.2 Continue to watch for signs/symp toms of post depression . Return one year from last pap smear for a well woman exam. Not interested in contracept ion at this time. Encouraged to return in 1 month for 2 hour gtt. Patient received above instructio ns, and questions have been answered. If you have any questions please call or respond to this email. Patient was made aware of the patient portal and may obtain a paper copy of today's plan if desired [id number] ROSANNA Mederos [place] [address],[place] [address] 01/11/2022 11:24:38 01/11/2022 14:44:56 Gynecologic examination [id number] Z01.419 Z11.51 Take Calcium with Vitamin D 1200mg daily if not receiving in daily diet. It is strongly advised to have an annual flu shot and up can obtain at most pharmacies . If you have not had a TDap shot in the last 10 years you should obtain one as well. Discussed with patient & provided with informatio n regarding Gardisil vaccine to prevent the 4 strains for HPV that cause cervical cancer if under age 26. Encourage safe sexual practices, to use condoms and limit partners if not already in a monogamous relationsh ip. Do monthly self breast exams. Have mammogram yearly or every other year depending on family history. BRCA testing is now available for patients with strong genetic history of female cancer. If interested contact the office. Engage in daily exercise of low impact aerobic exercise 45-60 minutes 4-5 times weekly. Avoid tobacco and illicit drugs as well as using moderation with alcohol intake less than 1-2 8 oz beverages daily. This lifestyle behavior pattern will lead to less health conditions and longer life span. If BMI greater than 25 weight watchers or dietary consult advised. Patient received above instructio ns, and questions have been answered. If you have any questions please call or respond to this email. Patient was made aware of the patient portal and may obtain a paper copy of today's plan if desired.WW Alysha control currently, partner plans to get a vasectomy next week.She noticed pain after intercours e one week ago. Has had intercours e since and this did not happen. She has gallstones currently and is seeing a surgeon this week about that. We agreed to have her track her pain and if this happens again with intercours e to call the office.Hx of abnormal pap smear years ago per patientLas t pap in 2020 normal. Discussed no pap needed today per guidelines , she desires pap to be done today.STI testing declinedPa ternal grandmothe r with ovarian cancer in her 40's. We discussed genetic testing. She will consider this and let us know if she would like it.RTC in one year for WWE or sooner if needed Health Concerns Section Related Observation LastModified by Organization Detai ls LastModified Time None Recorded Concern Status LastModified by Organization Details LastModified Time None Recorded Advance Directives Directive N: Payers Encounter Date Sequence Insurance Name Policy Number Policy Sousa Covered Member ID Sousa Member ID Guarantor Name 07/02/2021 1 [place] [id number] Sandro Davila [id number] Laisha Davila 07/06/2021 1 [place] [id number] Sandro Davila [id number] Laisha Davila 07/06/2021 1 [place] [id number] Sandro Davila [id number] Laisha Davila 08/06/2021 1 [place] [id number] Sandro Davila [id number] Laisha Davila 01/11/2022 1 [place] [id number] Sandro Davila [id number] 06Chrissy Davila Notes Date Note Type Note Provider Name and Address Organization Details Recorded Time 08/06/2021 text/html VisitReported bypatient.Associate d Symptoms:no abnormal bleeding; no vaginal discharge; no pelvic pain; laceration well healed; no constipation; no fecal incontinence; no dysuria; no urinary incontinence; no fever; no problems; no mastitis; normal mood Kaci winslow, [facility] 08/06/2021 10:12:16 01/11/2022 text/html Annual GYNReport [...] 39 ROSANNA Mederos [address], [place], [address], [facility] 01/11/2022 14:38:37 OBGyn Episode Ob Episode Information Episode Created Date Number of Fetuses Patient Bloodtype Patient rh Status Prepregnancy Weight lbs Domestic Partner Domestic Partner Phone Father Name Manager Workers Compensation Status 01/07/20 21 1 A Positive 156 CLOSED Fetus Data First Name Last Name Admitted to NICU Weight (g) Sex Living Outcome Pediatric Complications Fetus ID Race Codes Race Delivery Type 2636.50 35 F true Full Term 9782 Vaginal Delivery Problems Problem Notes declines COVID vaccine Problem Name Start Date End Date Resolution Snomed Code Not e Gestational diabetes mellitus [id number] INSULIN no w - 8u History of growth retardation [id number] h/o IUG R with 2 VC - 06/25 u/s shows low NL growth 13% 5#8z HELLP syndrome [id number] first preg - on ASA Cyst of right ovary [id number] 5cm simple . torsion precautions given. Pablo Calculation Initial Pablo Date Initial Exam Date Initial Exam Provider Initial Ultrasound Date Last Menstrual Period Date Ultra Sound Weeks Gestation 07/19/2021 01/06/2021 11/27/2020 10/12/2020 5 Eighteen To Twenty Week Pablo Update Ultra Sound Date Fundal Height At Umbil Quickening Date Ultra Sound Latest Weeks Gestation Final Pablo Confirmed By Final Pablo Confirmed Date Final Pablo Date Ultra Sound Latest Days Gestation 0 01/06/2021 07/19/20 21 0 Pre- Flowsheet Flowsheet Date 01/06/2021 Rosales Score Blood Edema Fundus Height Fundus Units Glucose Ketones Leukocytes Nitrite Labor Signs Protein Cervic Dilation Cervic Effacement Cervic Station neg none trace Type Weight in lbs Pre/Post Dialysis Refused Weight 153.854282538726 BP Diastolic BP Location Tested BP Systolic [...] Weight in lbs Pre/Post Dialysis Refused Weight 148.479189372602 BP Diastolic BP Location Tested BP Systolic [...] Weight in lbs Pre/Post Dialysis Refused Weight 145.9124955084 BP Diastolic BP Location Tested BP Systolic [...] Weight in lbs Pre/Post Dialysis Refused Weight 149.718658124387 BP Diastolic BP Location Tested BP Systolic [...] Weight in lbs Pre/Post Dialysis Refused Weight 148.111620482451 BP Diastolic BP Location Tested BP Systolic [...] Weight in lbs Pre/Post Dialysis Refused Weight 151.712418438321 BP Diastolic BP Location Tested BP Systolic [...] Weight in lbs Pre/Post Dialysis Refused Weight 149.373023403866 BP Diastolic BP Location Tested BP Systolic [...] Weight in lbs Pre/Post Dialysis Refused Weight 152.965541226335 BP Diastolic BP Location Tested BP Systolic [...] Weight in lbs Pre/Post Dialysis Refused Weight 149.591161772141 BP Diastolic BP Location Tested BP Systolic [...] Weight in lbs Pre/Post Dialysis Refused Weight 153.035925276980 BP Diastolic BP Location Tested BP Systolic [...] Weight in lbs Pre/Post Dialysis Refused Weight 154.630883770657 BP Diastolic BP Location Tested BP Systolic [...] Weight in lbs Pre/Post Dialysis Refused Weight 157.161307588327 BP Diastolic BP Location Tested BP Systolic [...] Weight in lbs Pre/Post Dialysis Refused Weight 151.626537640565 BP Diastolic BP Location Tested BP Systolic [...] Weight in lbs Pre/Post Dialysis Refused Weight 152.572394985017 BP Diastolic BP Location Tested BP Systolic [...] Estim ated Date of Delivery false Thalassemia (Sinhala, Maori, Mediterranean, Or Background): MCV < 80 false Neural Tube Defect (Meningomyelocele, Spina Bifi da, Or Anencephaly) false Congenital Heart Defect false Down Syndrome false Arturo-Sachs (eg, Christian, Cajun, Polish-Slovenian) f alse Mickey Disease false Sickle Cell Disease Or Trait () false Hemophilia Or Other Blood Disorders false Muscular Dystrophy false Cystic Fibrosis false [place]'s Chorea false Intellectual Disability/Autism false If Yes, [...] Post Complications Tubal Sterilization Discharge Date Comments dustin None 38.2 false Kaci Adame CNM GDM & Gbs+ & IUGR Discharge Information Feeding Method Contraceptive Method Maternal HG B and HCT Levels Ob Episode Information Episode Created Date Number of Fetuses Patient Bloodtype Patient rh Status Prepregnancy Weight lbs Domestic Partner Domestic Partner Phone Father Name Manager Workers Compensation Status 12/10/19 21 1 CLOSED Fetus Data First Name Last Name Admitted to NICU Weight (g) Sex Living Outcome Pediatric Complications Fetus ID Race Codes Race Delivery Type , Spontane ous 9029 Pablo Calculation Initial Pablo Date Initial Exam Date Initial Exam Provider Initial Ultrasound Date Last Menstrual Period Date Ultra Sound Weeks Gestation 0 Eighteen To Twenty Week Pablo Update [...] Domestic Partner Domestic Partner Phone Father Name Manager Workers Compensation Status 12/10/19 21 1 CLOSED Fetus Data First Name Last Name Admitted to NICU Weight (g) Sex Living Outcome Pediatric Complications Fetus ID Race Codes Race Delivery Type 2381.35 8 F Prematur e 9028 Vaginal Delivery Pablo Calculation Initial Pablo Date Initial Exam Date Initial Exam Provider Initial Ultrasound Date Last Menstrual Period Date Ultra Sound Weeks Gestation 0 Eighteen To Twenty Week Pablo Update [...] Domestic Partner Domestic Partner Phone Father Name Manager Workers Compensation Status 12/10/19 21 1 CLOSED Fetus Data First Name Last Name Admitted to NICU Weight (g) Sex Living Outcome Pediatric Complications Fetus ID Race Codes Race Delivery Type 2522.87 8704 M Full Term 9030 Vaginal Delivery Pablo Calculation Initial Pablo Date Initial Exam Date Initial Exam Provider Initial Ultrasound Date Last Menstrual Period Date Ultra Sound Weeks Gestation 0 Eighteen To Twenty Week Pablo Update [...]
--- OUTSIDE RECORDS SUMMARY | 2024-12-22 00:26 | XMS_ITS | Clinical Summary ---
Author Organization [facility] Address [address] [place] [address] Care Team Providers Care Electronic Systems Security Assessment Name Role Phone Domingo Henriquezekta LANDEROS Primary Care Provider [phone] Martinez Haley LANDEROS Unavailable [phone] Source Comments [facility],non-owned Affiliates and Associated Physician Practices is amultiple site organization consisting of ambulatory clinics and hospital sitesin [place], [place], [place] and [place]. This disclosure is being madepursuant to the Care Everywhere program and may not contain all information available regarding this patient. Last updated 18.[facility] Allergies No known active allergies Medications * Be aware that medications may not be up to date on this document. Alwaysverify current medications with the patient. Vit-Fe Fumarate-FA ( VITAMIN) 28-0.8 MG tablet [...] preeclampsia risk reduction Supervision of high-risk of young padmini igravida 02/26/2019 Overview (02/28/2019): Datinw 2d U/S [...] = 0.6 oz pur e alcohol) Comments No Sex and Gender Information Value Date Recorded Sex Assigned at Not on file Legal Sex Female 9:35 AM CDT Gender Identity Not on file Sexual Orientation [...] Health Maintenance Due Date Last Done Comments HIV SCREENING 2004 HEPATITIS C SCREENING 09/15/2007 DTAP/TDAP/TD VACCINES (1 - Tdap) 2008 HEPATITIS B VACCINE (1 of 3 - 19+ 3-dose series) 2008 COVID-19 VACCINE ( - 2023-2 5 season) 2024 DEPRESSION SCREENING 08/29/2024 INFLUENZA VACCINE (Season Ended) 2025 ZOSTER VACCINE (1 of 2) 2039 HIB VACCINE Aged Out No longer eligi ble based on patient's age to complete this topic HPV VACCINE Aged Out No longer eligi ble based on patient's age to complete this topic MENINGOCOCCAL (Group B) VACC INE SHARED DECISION-MAKING Aged Out No longer eligibl e based on patient's age to complete this topic MENINGOCOCCAL GROUPS A/C/Y/W VACCINE Aged Out No longer eligible b ased on patient's age to complete this topic PNEUMOCOCCAL VACCINE Aged Out No long er eligible based on patient's age to complete this topic Insurance Care Teams Electronic Systems Security Assessment Relationship Specialty Start Date End Date Haley Henriquez APRN-SPENCER [address] [place] [id number] PCP - General 07/08/21 Haley Henriquez APRN-MECHANICAL [employer]OP [employer]ORER [address] [place] [phone] Nurse Practitioner Family 07/08/21
--- OUTSIDE RECORDS SUMMARY | 2024-12-22 00:26 | XMS_ITS | Data Portability ---
Author Organization [facility] [employer] Address [address] [place] [address] Care Team Providers Care Hospice Care Sales Consultant Name Role Phone USMAN ANGEL Second Floor Operator HALEY SALCIDO Primary Care Provider Unavailabl e Assessment No assessment recorded. Plan of Treatment Reminders Order Date Submit Date Provider Last Modified By Organization Details Last Modified Time Details Appointments None recorded. Lab hla-B27, blood 2017 018 [facility], [address], [address], [place], [address], 8 20:10:21 test, urine 2017 018 [email or web address] 3 In-Office Order, Internal Use Only DO Not Attach Compendium DO Not Attach Compendium, Do Not Delete/merge, [id number] 8 13:47:29 pap, IG + reflex HPV if ASC-U 2017 018 [facility], [address], [address], [place], [address], 8 16:36:29 Referral None recorded. Procedures None recorded. Surgeries None recorded. Imaging US, obstetric, 1st trimester 2017 018 [email or web address] 3 Not available 8 14:51:29 Medication Orders loratadine 10 mg tablet 2017 018 INTERFACE [facility][id number], [address], [place], [place], [id number], 8 10:08:35 montelukas t 10 mg tablet 2017 018 INTERFACE [facility][id number], [address], [place], [place], [id number], 8 10:24:57 amoxicilli n 875 mg-potassi um clavulanat e 125 mg tablet 2017 018 [email or web address] [facility] #[id number], [address], [place], [place], [id number], 8 10:01:44 Patient TargetsNo targets recorded. Patient Instructions Encounter Date Encounter Id Patient Instructions Last Modified By Organization Details Last Modified Time 10/05/2017 [id number] Stop Amox and switch to the Augmentin. Take all antibiotics prescribed to you. If any fever or increase in pain or redness, call/return to office. Not available 10/05/2017 15:34:38 f/u as needed DW P barriers to care: none Not available 10/05/2017 15:34:02 10/25/2017 [id number] upper respirator y infection (cold): care instructions Not available 10/25/2017 10:24:52 seasonal allergies: care instructions Not available 10/25/2017 10:24:52 Mucinex and othe r OTC cold/cough remedies are fine to take, increase fluids and have good handwashing. Get plenty of rest. Not available 10/25/2017 10:24:10 f/u as needed DW P barriers to care: none Not available 10/25/2017 10:24:33 06/08/2018 [id number] dry skin: care instructions Not available 06/08/2018 [...] 65-99 Not Available [facility] ([facility]) [address] [place], [address], 12/21/2017 07:15:31 12/21/19 18 12/21/2017 CMP, serum or plasm a BUN 11 mg/dL 6-20 Not Available [facility] ([facility]) [address] [place], [address], 12/21/2017 07:15:31 12/21/19 18 12/21/2017 CMP, serum or plasm a creatinine 0.73 mg/dL 0.57-1 .00 Not Available [facility] ([facility]) [address] [place], [address], 12/21/2017 07:15:31 12/21/19 18 12/21/2017 CMP, serum or plasm a eGFR if nonafricn AM 112 mL/mi n/1.7 3 >59 Not Available [facility] ([facility]) [address] [place], [address], 12/21/2017 07:15:31 12/21/19 18 12/21/2017 CMP, serum or plasm a eGFR if africn AM 130 mL/mi n/1.7 3 >59 Not Available [facility] ([facility]) [address] [place], [address], 12/21/2017 07:15:31 12/21/19 18 12/21/2017 CMP, serum or plasm a BUN/creatini ne ratio 15 9-23 Not Available [facility] ([facility]) [address] [place], [address], 12/21/2017 07:15:31 12/21/19 18 12/21/2017 CMP, serum or plasm a sodium 138 mmol/ L 134-14 4 Not Available [facility] ([facility]) [address] [facility] [place], [address], 12/21/2017 07:15:31 12/21/19 18 12/21/2017 CMP, serum or plasm a potassium 4.0 mmol/ L 3.5-5. 2 Not Available [facility] ([facility]) [address] [facility] [place], [address], 12/21/2017 07:15:31 12/21/19 18 12/21/2017 CMP, serum or plasm a chloride 100 mmol/ L 96-106 Not Available [facility] ([facility]) [address] [facility] [place], [address], 12/21/2017 07:15:31 12/21/19 18 12/21/2017 CMP, serum or plasm a carbon dioxide, total 23 mmol/ L 18-29 Not Available [facility] ([facility]) [address] [facility] [place], [address], 12/21/2017 07:15:31 12/21/19 18 12/21/2017 CMP, serum or plasm a calcium 9.0 mg/dL 8.7-10 .2 Not Available [facility] ([facility]) [address] [facility] [place], [address], 12/21/2017 07:15:31 12/21/19 18 12/21/2017 CMP, serum or plasm a protein, total 7.0 g/dL 6.0-8. 5 Not Available [facility] ([facility]) [address] [facility] [place], [address], 12/21/2017 07:15:31 12/21/19 18 12/21/2017 CMP, serum or plasm a albumin 4.7 g/dL 3.5-5. 5 Not Available [facility] ([facility]) [address] [facility] [place], [address], 12/21/2017 07:15:31 12/21/19 18 12/21/2017 CMP, serum or plasm a globulin, total 2.3 g/dL 1.5-4. 5 Not Available [facility] ([facility]) [address] [facility] [place], [address], 12/21/2017 07:15:31 12/21/19 18 12/21/2017 CMP, serum or plasm a A/G ratio 2.0 1.2-2. 2 Not Available [facility] ([facility]) [address] [facility] [place], [address], 12/21/2017 07:15:31 12/21/19 18 12/21/2017 CMP, serum or plasm a bilirubin, total 0.3 mg/dL 0.0-1. 2 Not Available [facility] ([facility]) [address] [place], [address], 12/21/2017 07:15:31 12/21/19 18 12/21/2017 CMP, serum or plasm a alkaline phosphatase 58 IU/L 39-117 Not Available [facility] ([facility]) [address] [place], [address], 12/21/2017 07:15:31 12/21/19 18 12/21/2017 CMP, serum or plasm a AST (SGOT) 18 IU/L 0-40 Not Available [facility] ([facility]) [address] [facility] [place], [address], 12/21/2017 07:15:31 12/21/19 18 12/21/2017 CMP, serum or plasm a ALT (SGPT) 17 IU/L 0-32 Not Available [facility] ([facility]) [address] [facility] [place], [address], 12/21/2017 07:15:31 12/21/19 18 12/21/2017 CBC WBC 9.4 x10e3 /uL 3.4-10 .8 Not Available [facility] ([facility]) [address] [facility] [place], [address], 12/21/2017 07:15:32 12/21/19 18 12/21/2017 CBC RBC 4.60 x10e6 /uL 3.77-5 .28 Not Available [facility] ([facility]) [address] [facility], [place], [address], 12/21/2017 07:15:32 12/21/19 18 12/21/2017 CBC hemoglobin 13.6 g/dL 11.1-1 5.9 Not Available [facility] ([facility]) [address] [place], [address], 12/21/2017 07:15:32 12/21/19 18 12/21/2017 CBC hematocrit 40.4 % 34.0-4 6.6 Not Available [facility] ([facility]) [address] [facility], [place], [address], 12/21/2017 07:15:32 12/21/19 18 12/21/2017 CBC MCV 88 fL 79-97 Not Available [facility] ([facility]) [address] [place], [address], 12/21/2017 07:15:32 12/21/19 18 12/21/2017 CBC MCH 29.6 pg 26.6-3 3.0 Not Available [facility] ([facility]) [address] [facility], [place], [address], 12/21/2017 07:15:32 12/21/19 18 12/21/2017 CBC MCHC 33.7 g/dL 31.5-3 5.7 Not Available [facility] ([facility]) [address] [facility], [place], [address], 12/21/2017 07:15:32 12/21/19 18 12/21/2017 CBC RDW 13.7 % 12.3-1 5.4 Not Available [facility] ([facility]) [address], [place], [address], 12/21/2017 07:15:32 12/21/19 18 12/21/2017 CBC NRBC FIELD SAMPLING TECHNICIAN Not Available [facility] ([facility]) [address], [place], [address], 12/21/2017 07:15:32 12/21/19 18 12/21/2017 lipid panel , serum cholesterol, total 182 mg/dL 100-19 9 Not Available [facility] ([facility]) [address], [place], [address], 12/21/2017 07:15:32 12/21/19 18 12/21/2017 lipid panel , serum triglyceride s 128 mg/dL 0-149 Not Available [facility] ([facility]) [address] [facility], [place], [address], 12/21/2017 07:15:32 12/21/19 18 12/21/2017 lipid panel , serum HDL cholesterol 42 mg/dL >39 Not Available [facility] ([facility]) [address] [facility], [place], [address], 12/21/2017 07:15:32 12/21/19 18 12/21/2017 lipid panel , serum VLDL cholesterol hawa 26 mg/dL 5-40 Not Available [facility] ([facility]) [address] [facility], [place], [address], 12/21/2017 07:15:32 12/21/19 18 12/21/2017 lipid panel , serum LDL cholesterol calc 114 mg/dL 0-99 above high normal Not Available [facility] ([facility]) [address] [facility], [place], [address], 12/21/2017 07:15:32 12/21/19 18 12/21/2017 lipid panel , serum comment: FIELD SAMPLING TECHNICIAN Not Available [facility] ([facility]) [address] [place], [address], 12/21/2017 07:15:32 12/21/19 18 12/21/2017 TSH, ultra -sens itive , serum TSH 2.120 uIU/m L 0.450- 4.500 Not Available [facility] ([facility]) [address] [place], [address], 12/21/2017 07:15:32 12/21/19 18 12/21/2017 pap, IG + refle x HPV if ASC-U diagnosis: Rena MARMOLEJO FOR INTRA EPITH ELIAL ERIN N AND ROGERS HERNANDEZ . Not Available [facility] ([facility]) [address] [place], [address], 12/21/2017 16:36:29 12/21/19 18 12/21/2017 pap, IG + refle x HPV if ASC-U specimen adequacy: Rena aranda Satis facto steven for evalu ation . Endoc ervic al and/o r squam ous metap lasti c cells (endo cervi hawa compo nent) are prese nt. Not Available [facility] ([facility]) [address] [place], [address], 12/21/2017 16:36:29 12/21/19 18 12/21/2017 pap, IG + refle x HPV if ASC-U clinician provided ICD10: Rena aranda Z01.4 19 Not Available [facility] ([facility]) [address] [place], [address], 12/21/2017 16:36:29 12/21/19 18 12/21/2017 pap, IG + refle x HPV if ASC-U performed by: Rena Delarosa , Cytot gala aranda Not Available [facility] ([facility]) [address] [place], [address], 12/21/2017 16:36:29 12/21/19 18 12/21/2017 pap, IG + refle x HPV if ASC-U . . Not Available [facility] ([facility]) [address] [place], [address], 12/21/2017 16:36:29 12/21/19 18 12/21/2017 pap, IG [...] . Not Available [facility] ([facility]) [address] [facility], [place], [address], 12/21/2017 16:36:29 12/21/19 18 12/21/2017 pap, IG + refle x HPV if ASC-U test methodology: Commen t This liqui d based ThinP rep(R ) pap test was scree connie with the use of an image guide d syste m. Not Available [facility] ([facility]) [address] [facility], [place], [address], 12/21/2017 16:36:29 12/21/19 18 12/21/2017 pap, IG + refle x HPV if ASC-U . Commen t The HPV DNA refle x crite emma were not met with this speci men resul t there fore, no HPV testi ng was perfo rmed. Not Available [facility] ([facility]) [address] [place], [address], 12/21/2017 16:36:29 03/06/20 18 03/06/2018 pregn darling test, urine HCG positi ve Not Available In-Office Order Internal Use Only DO Not Attach Compendium DO Not Attach Compendium, Do Not Delete/merge, [id number] 03/06/2018 11:51:45 06/08/20 18 06/13/2018 hla-B 27, [...] HLA Lab CLIA ID Numbe r [id number] This test was perfo rmed using PCR (Poly meras e Chain React ion)/ SSOP (Sequ ence Speci fic Oligo nucle otide Probe s) techn ique. SBT (Sequ ence Based Typin g) and/o r SSP (Sequ ence Speci fic Prime rs) may be used as suppl ement al metho ds when neces kellen. Pleas e conta ct HLA [facility] at [phone] if you have any quest ions. Direc tor of HLA Labor atory Dr Valdemar Whitten, PhD Not Available [facility] ([facility]) [address] [facility], [place], [address], 06/13/2018 20:10:21 03/11/20 18 03/10/2018 US, obste tric, 1st trime ster No observ ation record ed. [email or web address] [place] [address] ([facility]) [address], [place], [address], 03/11/2018 14:50:38 06/11/20 19 06/06/2019 CT, abdom en + pelvi s, w/ contr ast No observ ation record ed. Not Available 2018 13:23:43 Result Notes None recorded. Problems Name Problem SNOMED Code Status Onset Date Resolution Date Notes Provider Name and Address Organization Details Recorded Time Numbness of limbs 140209854 Active CHRISSY Smith Attn: Marsha g,[address], [place], [address], [facility] 6 15:48:21 Pregnanc y 59125472 Completed 201706/08/2018 Removal Reason: no longer Haley Salcido APN, FNP-C Attn: Marsha munson,[address] [facility], [place], [place], [address] [place] [address] 2, [facility] 8 10:08:44 Headache 83253032 Active ROWDY SmithC Attn: Marsha munson,[address] [facility], [place], [place], [address] [place] [address] 2, [facility] 6 15:48:21 Heart murmur 56902134 Active ROWDY SmithC Attn: Marsha munson,[address] [place], [place], [address] [place] [address] 2, [facility] 6 15:48:21 Tobacco user 122279869 Active ROWDY SmithC Attn: Marsha munson,[address] [place], [place], [address] [place] [address] 2, [facility] 6 15:48:21 Anxiety 38274989 Active CHRISSY Smith Attn: Marsha munson,[address] [place] [address], [address] [place] [address] 2, [facility] 6 15:48:21 Strain of knee 00451592303 3 Active ROWDY SmithC Attn: Marsha munson,[address] [place] [address], [address] [place] [address] 2, [facility] 6 08:28:13 Wheezing 35949872 Active 2016 Haley Salcido APN, FNP-C Attn: Marsha munson,[address] [place], [place], [address] [place] [address] 2, [facility] 7 11:19:30 Acute sinusiti s 36526193 Completed 201604/20/2017 Haley Salcido APN, FNP-C Attn: Marsha munson,[address] [place] [address], [address] [place] [address] 2, [facility] 7 12:09:15 Acute otitis media 2869877 Active 2016 Haley Salcido APN MOVIE EDITOR-C Attn: Marsha arpit,[address] [facility], [place], [address], [facility] 7 11:19:32 Foot pain 66264166 Active 2016 Haley Salcido APN MOVIE EDITOR-C Attn: Joeandrzej munson,[address] [facility], [place], [address], [facility] 7 11:25:21 Dysfunct ion of eustachi an tube 63691957 Active 2016 Haley Salcido APN, FNP-C Attn: Joeandrzej munson,[address] [place], [address], [facility] 7 11:40:50 Acute otitis externa 24593887 Active 2016 Haley Salcido APN, FNP-C Attn: Joeandrzej munson,[address] [place] [address], [place], [address], [facility] 7 12:10:29 Seasonal allergic rhinitis 160336105 Active 2016 Haley Salcido APN, FNP-C Attn: Joeandrzej munson,[address] [place] [address], [address], [facility] 7 12:11:04 Pain in left knee Active 2016 Haley Salcido APN, FNP-C Attn: Joeandrzej munson,[address] [place] [address], [address], [facility] 7 15:39:31 Problem Notes None recorded. Procedures Surgical History Date Name Laterality Status Provider Name and Address Organization Details Recorded Time 12/20/2017 Date of Last Pap Smear completed Arielle Telles [place] 03/06/2018 11:49:27 Other completed Usman Angel [place] 10/08/2014 11:14:25 Imaging Results Imaging Date Name Status LastModified by [facility] Details LastModified Time 03/10/2018 US, obstetric, 1st trimester completed [email or web address] [facility] (Imaging) [address], [place], [address], 03/11/2018 14:50:38 06/06/2019 CT, abdomen + pelvis, [...] propionate 50 mcg/actuati on nasal spray,suspe nsion [place] 1 spray every day by intranasa l [...] Updated DateTime 8 160.02 cm 25.3 kg/m2 77565.7 1 g 98 % 98 % 99 [...] Updated DateTime 8 160.02 cm 24.6 kg/m2 04642.0 4 g 100 % 100 % 74 /min 12 /min 98.5 [degF] 100 mm[Hg] 60 mm[Hg] Gilda Guevara [facility] 8 10:03:23 Date Recorded Body height Body mass index (BMI) Body weight Systolic blood pressure Diastolic blood pressure Provider Name and Address Organization Details Last Updated DateTime 12/20/2017 160.02 cm 25 kg/m2 24752.24 g 98 mm[Hg] 68 mm[Hg] Arielle Telles [facility] 8 14:14:32 Date Recorded Body height Body mass index (BMI) Body weight Systolic blood pressure Diastolic blood pressure Provider Name and Address Organization Details Last Updated DateTime 03/06/2018 160.02 cm 24.7 kg/m2 46599.05 7904 g 110 mm[Hg] 66 mm[Hg] Arielle Telles [facility] 8 11:48:32 Date Recorded Body height Body mass index (BMI) Oxygen saturation Oxygen saturation in Arterial blood by Pulse oximetry Heart rate Respiratory rate Body temperature Systolic blood pressure Diastolic blood pressure Provider Name and Address Organization Details Last Updated DateTime 8 160.02 cm 24.6 kg/m2 100 % 100 % 78 /min 12 /min 98.3 [degF] 108 mm[Hg] 62 mm[Hg] Prisca Mg MA [facility] 8 09:42:36 Date Recorded Body weight Provider Name an d Address Organization Details Last Updated DateTime 06/08/2018 24652.49957 g BECKIE Brock, MOVIE EDITOR-C Attn: Accounting,[address] [place], [address], [facility] 06/08/2018 13:18:22 Social History Question Answer Notes LastModified by Organizat ion Details LastModified Time Tobacco Smoking Status Never Smoker Arielle Telles nayla [facility] 11/11/2016 10:51:02 What Is Your Level Of Alcohol Consumption? None Information not available 10/22/2015 Is Blood Transfusion Acceptable In An Emergency? Yes Information not available 10/17/2014 What Is Your Level Of Caffeine Consumption? Heavy Soda [email or web address] Information not available 09/24/2014 How Much Tobacco Do You Chew? None Information not available 10/22/2015 Are You Currently Employed? Yes [email or web address] Information not available 12/20/2017 What Type Of Diet Are You Following? REGULAR Information not available 09/24/2014 Which Illicit Or [...] available 12/20/2017 Seat Belts Used Routinely Yes [email or web address] Information not available 10/08/2014 Are You Sexually Active? Yes Information not available 10/17/2014 Smoke Alarm In Home Yes Information not available 10/17/2014 At What Age Did You Start Smoking Tobacco? 12 Information not available 11/07/2015 General Stress Level Low Information not available 11/07/2015 Do You Use Sunscreen Routinely? Yes Information not available 10/08/2014 Sex: Unknown Functional [...] Not available 2015 15:48:26 Paternal Grandmother Malignant neoplasm of ovary [email or web address] Not available 2015 15:48:26 Maternal Grandmother Hypertensive disorder [email or web address] Not available 2015 15:48:26 Maternal Grandmother Hypercholest erolemia [email or web address] Not available 2015 15:48:26 Maternal Grandfather Hypercholest erolemia [email or web address] Not available 2015 15:48:26 Medical History Condition Response Coronary Artery Disease N Other Y High Blood Pressure N Atrial Fibrillation N Breast Cancer N Blood Clots N COPD N Depression N Lung Disease N Breast Problem N Anesthesia Complications N Headaches/Migraines Y Anxiety Disorder Y Muscle, Joint, or Bone Problems N Arthritis N Infertility N Polyps N Acid Reflux (GERD) N Cancer N Stroke N Endometriosis N High Cholesterol N Liver Disease N Fibromyalgia N Headaches N Kidney Disease N Heart Problems N Thyroid Problems N Kidney or Bladder Problems N GI Problems N Acne N Skin Problems N Eating Disorder N Anemia N Heart Attack ([place]) N Ovarian Cancer N Diabetes N Blood [...] Immunizations Vaccine Type Date Status Note Provider Marcello wilcox and Address Organization Details Recorded Time Tdap 12/26/2014 completed Not Available [facility] 09/15/2019 02:29:58 Past Encounters Encounter ID Performer Location Encounter Start Date Encounter Closed Date Diagnosis/Indication Diagnosis SNOMED-CT Code Diagnosis ICD10 Code Diagnosis Note [id number] Jennifer Rogers (Adult Med) [address] [place] [address] 09/24/2014 13:48:57 09/24/2014 15:16:31 Numbness of limbs 516202588 Will monitor for now, get labs, and follow up in 1 month to discuss possible neurology referral. Active or passive immunization 718904777 Need for tdap when in stock. Hyperlipid emia screening 166848130 Diabetes m ellitus screening 419620850 Thyroid di sorder screening 661382819 Anemia screening 085678530 [id number] [facility] [address] [place] [address] 10/08/2014 10:35:07 10/08/2014 12:40:34 Gynecologic examination 69205909 Normal female exam. Venereal d isease screening 190319138 [id number] [facility] [address] [place] [address] 10/17/2014 10:22:47 10/17/2014 12:21:57 Gynecologic examination 31709373 Total cholestero l was normal at 151. HDL and LDL were also normal, dwp. TSH was normal, dwp. Glucose was also normal, dwp. Pap was normal, dwp. Venereal d isease screening 760455532 Vaginal culture for GC/Chlam/T V was negative, dwp. STD panel was negative. Individual results d/w pt. [id number] Usman Angel [facility] (DISPLAY ARTIST) [address] [place] [address] 10/22/2015 09:33:21 10/22/2015 12:10:49 Venereal disease screening 903607767 Z11.3 RTO one week for results Evaluation of semen fertility 718329096 Z31.41 Likely male factor infertilit y discussed. Semen analysis ordered. Gynecologi c examination 28619911 Z01.419 Last pap done 10/08/14 was negative. Therefore, no pap needed. [id number] Jennifer Guthrie [facility] (Adult Med) [address] [place] [address] 12/24/2014 13:57:20 12/24/2014 15:01:29 Numbness of limbs 093723518 Resolved. If symptoms return, patient to schedule follow up. Active or passive immunization 134327177 Patient will return tomorrow for Tdap via nurse visit. [id number] Alina Rogers (Adult Med) [address] [place] [address] 10/20/2015 14:57:52 10/20/2015 17:43:41 Adult health examination 676073433 Z00.01 Encouraged well balanced meals, active lifestyle, and routine vision/den gopi/flexible nanny apts. Tobacco user 580281663 Z 72.0 Cessation encouraged and recommende d. Anxiety 04452491 F41.9 Patient to work on coping Hyperlipid emia screening 325589963 Z13.220 Anemia screening 8888083 07 Z13.0 Diabetes m ellitus screening 484838850 Z13.1 [id number] Usman Angel Ken (DISPLAY ARTIST) [address] [place] [address] 11/07/2015 09:28:31 11/07/2015 10:29:00 Venereal disease screening 987063240 Z11.3 Vaginal culture was negative for gonorrhea, chlamydia, trichomona s, and BV. It was positive for yeast. Pt. denies any symptoms. STD panel was completely negative. Individual test results d/w pt. 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 Decreased fertility disucssed. Pt. advised to see a reproducti ve endocrinol ogist along wiht her partner to increase liklihood of . [id number] CHRISSY Smith Womenrodolfo ([place] [address]) [address] [facility] [place] [address] 02/24/2016 10:04:48 02/24/2016 12:25:45 Strain of knee [id number] 03 S86.912A [id number] Kari Astorga ([place] [address]) [address] [facility] [place] [address] 03/08/2016 14:46:15 03/10/2016 14:59:49 Strain of knee [id number] 03 S86.912A [id number] Lexi Shelton ([place] [address]) [address] [facility] [place] [address] 04/05/2016 15:24:01 04/06/2016 09:30:14 Strain of knee [id number] 03 S86.912A [id number] Haley Salcido APN, FNP-C [place] (Adult Med) [address] [place] [address] 06/14/2016 10:01:42 06/14/2016 15:15:13 Strain of knee [id number] 03 S86.912S Anxiety 40948271 F41.9 Cannabis d ependence, continuous 328818269 F12.20 Adult heal th examination 310957483 Z00.00 [id number] Haley Salcido APN, FNP-C [place] ([facility]ult [facility]) [address] [place] [address] 07/19/2016 10:52:28 07/19/2016 14:43:41 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 Pain in throat 715670123 R07.0 [id number] Haley Salcido APN, FNP-C [place] ([facility]ult [facility]) [address] [place] [address] 07/27/2016 10:48:08 07/27/2016 13:31:37 Sore throat 697669979 J02.9 Upper resp iratory infection 64456441 J06.9 [id number] Haley Salcido APN, FNP-C [place] ([facility]ult [facility]) [address] [place] [address] 10/26/2016 10:32:19 10/26/2016 15:04:51 Acute sinusitis 30189782 J01.90 Wheezing 54100100 R06.2 Acute otitis media 74783 03 H65.03 Foot pain 76150546 M79.6 71 M79.672 OTC ibuprofen or aleve for pain, suggest supportive shoes for daily wear [id number] Usman Rogers (DISPLAY ARTIST) [address] [place] [address] 11/11/2016 10:31:27 12/03/2016 11:15:35 Gynecologic examination 71435464 Z01.419 Last pap done 10/08/14 was negative. Therefore, no pap needed. Venereal d isease screening 462456871 Z11.3 RTO one week for results. 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 Decreased fertility discussed. Pt. advised to see a reproducti ve endocrinol ogist along with her partner to increase likelihood of . [id number] Usman Amadou Rogers (DISPLAY ARTIST) [address] [place] [address] 11/23/2016 10:14:14 11/23/2016 16:03:58 Venereal disease screening 498125477 Z11.3 Vaginal culture was negative for gonorrhea, chlamydia, and trichomona s, dwp. STD panel was also completely negative. Individual test results dwp. [id number] Haley Salcido APN, FNP-C [place] ([facility]ult [facility]) [address] [place] [address] 01/17/2017 11:43:49 01/17/2017 14:27:11 Acute otitis media 3353863 H65.03 [id number] Usman Zuluagajeannette Rogers (DISPLAY ARTIST) [address] [place] [address] 03/09/2017 11:17:21 03/11/2017 11:49:13 Pain of breast 76747446 N64.4 Normal exam, dwp. Likely d/t hormones with her period. Will re-examine in 6 weeks. [id number] Haley Salcido APN, FNP-C [place] ([facility]ult [facility]) [address] [place] [address] 03/15/2017 14:31:33 03/16/2017 15:24:47 Acute otitis media 9817233 H65.03 right ear pain, bilateral AOM; has been on augmentin and cefdinir, now to take zpack Candidiasis of vagina 72 756986 B37.3 getting yeast infections every time she goes on abx [id number] Haley Salcido APN, FNP-C [place] ([facility]ult [facility]) [address] [place] [address] 03/29/2017 10:59:54 03/31/2017 09:29:29 Acute otitis media 7301500 H65.03 bilateral ear pain and bilateral AOM; has been on augmentin and cefdinir; misael did not work- now rx augmentin; Candidiasis of vagina 72 764188 B37.3 getting yeast infections every time she goes on abx Dysfunctio n of eustachian tube 69713769 H69.93 Pt out of flonase, adenoids removed as child but possibly grew back? dwp may refer to ENT if no improvemen t [id number] Usman Angel Ken (DISPLAY ARTIST) [address] [place] [address] 04/20/2017 11:25:43 04/21/2017 17:14:28 Pain of breast 86123255 N64.4 Pain has resolved. Precaution s for caffeine use discussed. [id number] Haley Salcido APN, FNP-C [place] ([facility]ult [facility]) [address] [place] [address] 04/20/2017 11:36:45 04/21/2017 12:23:56 Acute otitis externa 44584004 H60.503 Seasonal a llergic rhinitis 599748171 J30.2 cont flonase, add zyrtec at bedtime [id number] Haley Salcido APN, FNP-C [place] ([facility]ult [facility]) [address] [place] [address] 05/09/2017 14:49:09 05/10/2017 09:08:49 Pain in left knee 1805010602 69279 M25.562 hx of knee trauma x 1 yr ago; normal MRI; dwp ANDREW, will trial naproxen 500 mg bid and f/u in 2 weeks, may refer to PT if pt agrees. Also hx family hx of autoimmune dx and may need labs Seasonal a llergic rhinitis 125280711 J30.2 cont flonase, add zyrtec at bedtime [id number] Haley Salcido APN, FNP-C [place] ([facility]) [address] [place] [address] 09/28/2017 15:54:58 09/28/2017 17:59:15 Finding of body mass index 160000773 E66.9 BMI- 25.6. advised low fat, low cholestero l, low carb diet, regular exercise and weight reduction. Acute otitis media 86722 03 H65.03 bilateral ear pain and bilateral AOM; has been on augmentin and cefdinir; misael did not work- now rx augmentin; Bronchitis 19613695 J40 rhonchi clearing with cough Adult heal th examination 462688818 Z00.00 labs after done with abx [id number] Haley Salcido APN, FNP-C [place] ([facility]) [address] [place] [address] 10/05/2017 15:13:43 10/06/2017 16:21:52 Acute otitis media 0128960 H65.03 bilateral ear pain and bilateral AOM; has not quite finished abx from first round. [id number] Haley Salcido APN, FNP-C [place] ([facility]ult [facility]) [address] [place] [address] 10/25/2017 09:53:31 10/26/2017 14:56:07 Upper respiratory infection 58816037 J06.9 december cont with OTC cold med as needed Seasonal a llergic rhinitis 007685815 J30.2 cont flonase, add zyrtec at bedtime [id number] Usman Rogers (DISPLAY ARTIST) [address] [place] [address] 12/20/2017 14:01:12 12/27/2017 13:47:00 Gynecologic examination 68845589 Z01.419 Last pap done 10/08/14 was negative. Pap done today. [id number] Usman Rogers (DISPLAY ARTIST) [address] [place] [address] 03/06/2018 11:16:26 03/07/2018 12:02:17 Missed period 17331530 N92.5 UPT postive, dwp. Routine an tenatal care 391804294 Z34.01 Pt has appt. with [facility] in two weeks. US ordered to establish IUP prior to camping trip. Pt. already taking PNVs [id number] Haley Salcido APN, FNP-C [place] ([facility]ult [facility]) [address] [place] [address] 06/08/2018 09:33:39 06/08/2018 14:25:03 Seasonal allergic rhinitis 967607732 J30.2 cont flonase, add zyrtec at bedtime or loratadine in am Thoracic back pain 55248 8004 M54.6 mother recently diagnosed, cousin diagnosed, pt has increasing back pain and it was suggested by mother's dr that she get tested, Complainin g of dry skin 954039071 R23.8 dwp to use good moisturize r prior to drying skin post shower; Health Concerns Section Related Observation LastModified by Organization Detai ls LastModified Time None Recorded Concern Status LastModified by Organization Details LastModified Time None Recorded Advance Directives Directive None Recorded Payers Encounter Date Sequence Insurance Name Policy Number Policy Sousa Covered Member ID Sousa Member ID Guarantor Name 10/05/2017 1 [facility] (MEDICAID HM) [id number] Valerie Young [id number] Laisha E Freiner 10/25/2017 1 [facility] (MEDICAID HMO) [id number] Valerie Young [id number] Laisha E Freiner 12/20/2017 1 [facility] (MEDICAID HMO) [id number] Valerie Young [id number] Laisha E Freiner 03/06/2018 1 [facility] (MEDICAID HMO) [id number] 0003 Valerie Young [id number] Laisha E Freiner 06/08/2018 1 [facility] (MEDICAID HMO) [id number] Valerie Young [id number] Laisha E Freiner Notes Date Note Type Note Provider Name and Address Organization Details Recorded Time 10/05/2017 text/html Ears still hurt but cough is better. no fever. Has 6 pills left of her abx, has not been great about taking them but ears also feel worse. Haley Salcido APN, MOVIE EDITOR-C Attn: [address] [facility], [place], [address], [facility] 10/05/2017 22:56:30 10/25/2017 text/html [place] weekend and in rainy cold, everyone in her family was sick then, she has had cold symptoms since then, taking dayquil and nyquil, cough, ear pain and throat pain Haley Salcido APN, FNP-C Attn: [address] [place], [address], [facility] 10/25/2017 10:26:00 12/20/2017 text/html Annual GYNReport ed [...] regular mammograms starting age 40 Usman winslow, [facility] 12/26/2017 11:35:48 03/06/2018 text/html Pt presents for confirmation of . She has an appointment in 2 weeks with [facility]. She also has c/o a bump on her pelvic area. She has been doing warm compresses and it has decreased in size. Usman winslow, [facility] 03/06/2018 14:08:50 06/08/2018 text/html Mom has genetic autoimmune disease that was recently diagnosed; Pt has back pain and neck pain that has increased, but thought was just with phone use. Rash-skin dry and patchy; unsure of any skin allergies, happens all year and water makes it worse at times, no longer Haley Salcido APN, FNP-C Attn: Accounting[address] [place], [address], [facility] 06/08/2018 13:27:04 OBGyn Episode Ob Episode Information Episode Created Date Number of Fetuses Patient Bloodtype Patient rh Status Prepregnancy Weight lbs Domestic Partner Domestic Partner Phone Father Name Corpsman Status 10/08/19 15 1 CLOSED Fetus Data First Name Last Name Admitted to NICU Weight (g) Sex Living Outcome Pediatric Complications Fetus ID Race Codes Race Delivery Type F [id number] Vaginal Only Pablo Calculation Initial Pablo Date Initial Exam [...] Domestic Partner Domestic Partner Phone Father Name Corpsman Status 03/06/20 18 1 piotr davila CLOSED Fetus Data First Name Last Name Admitted to NICU Weight (g) Sex Living Outcome Pediatric Complications Fetus ID Race Codes Race Delivery Type [id number] Pablo Calculation Initial Pablo Date Initial Exam Date Initial Exam Provider Initial Ultrasound Date Last Menstrual Period Date Ultra Sound Weeks Gestation 10/31/2018 03/06/2018 [email or web address] 03/10/2018 01/24/2018 6 Eighteen To Twenty Week Pablo Update Ultra Sound Date Fundal Height At Umbil Quickening Date Ultra Sound Latest Weeks Gestation Final Pablo Confirmed By Final Pablo Confirmed Date Final Pablo Date Ultra Sound Latest Days Gestation 0 03/11/2018 11/01/19 19 0 Pre-mat Flowsheet Flowsheet Date 03/06/2018 Rosales Score Blood Edema Fundus Height Fundus Units Glucose Ketones Leukocytes Nitrite Labor Signs Protein Cervic Dilation Cervic Effacement Cervic Station Type Weight in lbs Pre/Post Dialysis Refused [id number] BP Diastolic BP Location Tested BP Systolic BP Type 66 110 sitting Fetus Heart Rate Present Fetus Movement Comments Flowsheet Date 06/08/2018 Rosales Score Blood Edema Fundus Height Fundus Units Glucose Ketones Leukocytes Nitrite Labor Signs Protein Cervic Dilation Cervic Effacement Cervic Station Type Weight in lbs Pre/Post Dialysis Refused [id number] BP Diastolic BP Location Tested BP Systolic [...]
[2024-12-22 01:41] VITALS: O2SAT 98
[2024-12-22 04:36] LABS: Basophils Percent Auto 0.3 % (0.2-1.2); Eosinophils Absolute Auto 0.1 K/mm3 (0-0.3); Eosinophils Percent Auto 0.6 % (0-4.4); Hematocrit 40.8 % (37.0-47.0); Hemoglobin 12.9 g/dL (12.0-15.0); Immature Granulocyte Absolute 0.06 K/mm3 (0.00-0.031); Immature Granulocyte Percent A 0.4 % (0-0.5); Lymphocytes Absolute Auto 1.57 K/mm3 (0.9-3.2); Lymphocytes Percent Auto 11.1 % (18.3-44.2); Mean Corpuscular HGB Conc 31.6 g/dl (32-36); Mean Corpuscular Hemoglobin 28.7 pg (26-34); Mean Corpuscular Volume 90.7 fl (80-100); Mean Platelet Volume 9.8 fl (7.4-10.4); Monocytes Absolute Auto 0.9 K/mm3 (0.1-0.6); Monocytes Percent Auto 6.6 % (2.6-8.5); Neutrophils Absolute Auto 11.4 K/mm3 (1.3-6.7); Platelet Count Result 233 k/mm3 (150-375); Red Cell Distribution Width 13.4 % (11.5-14.5); White Blood Count 14.1 K/mm3 (4.5-10.0)
[2024-12-22 04:49] LABS: Add Urine Microscopic? YES; Appearance Urine Cloudy (Clear); Bacteria Urine None Seen /hpf; Bilirubin Urine Negative (Negative); Blood Urine 3+ (Negative); Calcium Oxalate Crystals Urine Present /hpf; Color Urine Dark Yellow (Yellow); Glucose Urine UA Negative (Negative); Hyaline Casts Urine Present /lpf; Ketones Urine Trace mg/dL (Negative); Leukocyte Esterase Ur Negative LEU/UL (Negative); Mucus Urine Present /lpf; Need Manual Microscopic Reviewed; Nitrate Urine Negative (Negative); Protein Urine 1+ mg/dL (Negative); RBC Urine >100 /hpf (0-2); Specific Grav Ur 1.039 (1.001-1.035); Squamous Epithelial Cell Urine Few /hpf (Few); WBC Urine 0-5 /hpf (0-3)
--- OUTSIDE RECORDS SUMMARY | 2024-12-22 04:52 | XMS_ITS | Clinical Summary ---
Author Organization [facility] [employer] Address [address] [place] [address] Care Team Providers Care Director Of Recruiting Name Role Phone Domingo Henriquezekta LANDEROS Primary Care Provider [phone] Martinez Haley LANDEROS Unavailable [phone] Source Comments [facility],non-owned Affiliates and Associated Physician Practices is amultiple site organization consisting of ambulatory clinics and hospital sitesin [place], [place], [place] and [place]. This disclosure is being madepursuant to the Care Everywhere program and may not contain all information available regarding this patient. Last updated 18.[facility] [employer] Allergies No known active allergies Medications * [...] to complete this topic Insurance Care Teams Director Of Recruiting Relationship Specialty Start Date End Date Haley Henriquez APRN-SPENCER [address] [place] [id number] PCP - General 07/08/21 Haley Henriquez APRN-JAVA DEVELOPER WITH [employer] [address] [place] [id number] Nurse Practitioner Family 07/08/21
[2024-12-22 04:54] LABS: Alanine Aminotransferase 13 U/L (6-35); Albumin Level 4.2 g/dL (3.5-5.1); Alkaline Phosphatase 60 U/L (38-126); Amphetamine Screen Urine Negative (Negative); Anion Gap 8 mmol/L (4-12); Aspartate Amino Transferase 17 U/L (14-36); Barbiturate Screen Urine Negative (Negative); Benzodiazepines Screen Urine Negative (Negative); Bilirubin,Total 0.2 mg/dL (0.2-1.3); Blood Urea Nitrogen 14 mg/dL (7-17); Cannabinoid Screen Urine Positive (Negative); Carbon Dioxide 26 mmol/L (22-30); Chloride 103 mmol/L (98-107); Cocaine Screen Urine Positive (Negative); Estimated CRCL calculation 94 ml/min; Estimated Glomerular Filt Rate > 60; Glucose 111 mg/dL (65-110); Lactic Acid Reflex 1.6 mmol/L (0.7-2.0); Methadone Screen Urine Negative (Negative); Opiate Screen Urine Negative (Negative); Phencyclidine Screen Urine Negative (Negative); Potassium 4.3 mmol/L (3.4-5.0); Sodium 137 mmol/L (137-145)
--- NOTE | 2024-12-22 05:41 | ED_ITS ---
HPI - General Adult General Chief complaint: Syncope Stated complaint: I think I seized Time Seen by Provider: 12/22/24 04:40 History of Present Illness HPI narrative: This is a 34-year-old female presenting ED with chief complaint of thinking she had a seizure. Patient had just finished having sexual intercourse with her when she went to use the bathroom. When she was sitting on the toilet she started to feel lightheaded and that sounds were very far away. She then fell to the ground and her came in. She could hear him talking to her although he sounded far away. She then quickly returned to her baseline mental status was brought to the hospital for evaluation. Patient was using marijuana earlier today. She has never had a seizure in the past. She did not bite her tongue or lose continence. No postictal period or complete loss of consciousness. Related Data Allergies Allergy/AdvReac Type Severity Reaction Status Date / Time No Known Allergies Allergy Unknown Verified 12/22/24 00:25 [facility] Past Medical History Medical History Anxiety Kidney stones History of gestational diabetes Surgical History Surgical History History of laparoscopic cholecystectomy 05/07/2022 S/P adenoidectomy Family History Family History Unknown Diabetes mellitus Hypertension Cancer Allergies Mother Depression Sibling Depression Thyroid cancer Grandparent Hypertension Grandparent Cancer Diabetes mellitus Depression Social History Social History Smoking status: Never smoker Second hand tobacco smoke exposure: No Alcohol intake: never Substance use: current Substance use type: marijuana Other substance usage details: smokes it daily Lack of Transportation: No Lack of Food: Never True Current Housing: I Have Housing Concerned About Future Housing: No Difficulty Paying Gas/Electric Bills: No Difficulty Paying for Meds: YES Currently Unemployed: No Education: Trade/Vocational Certificate Difficulty w/ Childcare or Family Care: No Living arrangements: with family Gender identity (if verbalized by the patient): Female Spiritual care concerns: No Agree to blood products: Yes Exam 2 Narrative: APPEARANCE: No apparent distress. Head: atraumatic. EYES: EOMI, NOSE: Atraumatic NECK: Trachea midline RESPIRATORY: No increased rate of breathing CTAB CARDIOVASCULAR: RRR, no peripheral edema ABDOMINAL: Non-distended soft soft nontender MUSCULOSKELETAl: No obvious deformities NEURO: Alert. Cranial nerves 2-12 grossly intact. Sensation light touch, motor function cerebellar function intact for 4 extremities. Gait exam was normal. SKIN:: Warm, dry. Normal color PSYCHIATRIC: Normal affect Course Vital Signs Vital signs: Vital Signs Temperature 98.1 F 12/22/24 00: Pulse Rate 89 12/22/24 00: Respiratory Rate 20 12/22/24 00: Blood Pressure 114/60 12/22/24 00: Pulse Oximetry 100 12/22/24 00: Oxygen Delivery Room Air 12/22/24 00: Temperature 98.1 F 12/22/24 00: Pulse Rate 89 12/22/24 00:26 Respiratory Rate 20 12/22/24 00:26 Blood Pressure 114/60 12/22/24 00: Pulse Oximetry 98 12/22/24 01:41 Oxygen Delivery Room Air 12/22/24 01:41 Medical Decision Making MDM Narrative Medical decision making narrative: -Course: 34-year-old female presenting with a brief loss of consciousness while on the toilet. Presentation consistent with vasovagal syncope. CT head was negative. EKG without high risk syncopal findings. Urine drug screen positive for cocaine/cannabinoids. No recurrence of events in the ED. I think seizure far less likely given the history provided. Patient was monitored with no recurrence of her events. She will be discharged follow-up with primary care physician. -DDX includes but is not limited to: Syncope, seizure, intracranial hemorrhage Independent EKG interpretation: Rhythm [sinus], Rate [55], Deposit -[normal], CA -[normal], QRS [narrow], QTC [normal], T waves -[negative for concerning inversions], ST Segments - [Negative for concerning elevations] Final interpretations: [Normal Sinus Rhythm] Vital Signs Vital Signs: Vital Signs Temperature 98.1 F 12/22/24 00:26 Pulse Rate 89 12/22/24 00:26 Respiratory Rate 20 12/22/24 00:26 Blood Pressure 114/60 12/22/24 00: Pulse Oximetry 100 12/22/24 00:26 Oxygen Delivery Room Air 12/22/24 00:26 Temperature 98.1 F 12/22/24 00:26 Pulse Rate 89 12/22/24 00:26 Respiratory Rate 20 12/22/24 00:26 Blood Pressure 114/60 12/22/24 00:26 Pulse Oximetry 98 12/22/24 01:41 Oxygen Delivery Room Air 12/22/24 01:41 Lab Data 12/22/24 04:29 12/22/24 04:29 Labs: Lab Results 12/22/24 Range/Units 04:29 WBC 14.1 H (4.5-10.0) K/mm3 RBC 4.50 (4.2-5.4) M/mm3 Hgb 12.9 (12.0-15.0) g/dL Hct 40.8 (37.0-47.0) % MCV 90.7 (80-100) fl MCH 28.7 (26-34) pg MCHC 31.6 L (32-36) g/dl RDW 13.4 (11.5-14.5) % Plt Count 233 (150-375) k/mm3 MPV 9.8 (7.4-10.4) fl Immature Gran % (Auto) 0.4 (0-0.5) % Neut % (Auto) 81.0 H (45.5-73.1) % Lymph % (Auto) 11.1 L (18.3-44.2) % [place] % (Auto) 6.6 (2.6-8.5) % Eos % (Auto) 0.6 (0-4.4) % Baso % (Auto) 0.3 (0.2-1.2) % Lymph # (Auto) 1.57 (0.9-3.2) K/mm3 [place] # (Auto) 0.9 H (0.1-0.6) K/mm3 Eos # (Auto) 0.1 (0-0.3) K/mm3 Baso # (Auto) 0.0 (0.0-0.1) K/mm3 Abs Immat Gran (auto) 0.06 H (0.00-0.031) K/mm3 Absolute Neuts (auto) 11.4 H (1.3-6.7) K/mm3 Absolute Nucleated RBC 0.000 (0.0-0.012) K/mm3 Nucleated RBC % 0.0 (0.0-0.2) % Sodium 137 (137-145) mmol/L Potassium 4.3 (3.4-5.0) mmol/L Chloride 103 (98-107) mmol/L Carbon Dioxide 26 (22-30) mmol/L Anion Gap 8 (4-12) mmol/L BUN 14 (7-17) mg/dL Creatinine 0.69 L (0.7-1.0) mg/dL Estim Creat Clear Calc 94 ml/min Estimated GFR > 60 (59 - ) Glucose 111 H (65-110) mg/dL Lactic Acid 1.6 (0.7-2.0) mmol/L Calcium 9.0 (8.4-10.2) mg/dL Total Bilirubin 0.2 (0.2-1.3) mg/dL AST 17 (14-36) U/L ALT 13 (6-35) U/L Alkaline Phosphatase 60 (38-126) U/L Total Protein 7.0 (6.3-8.2) g/dL Albumin 4.2 (3.5-5.1) g/dL Urine Color Dark yellow (Yellow) Urine Appearance Cloudy H (Clear) Urine pH 5.0 (5.0-9.0) Ur Specific [place] 1.039 H (1.001-1.035) Urine Protein 1+ H (Negative) mg/dL Urine Glucose (UA) Negative (Negative) mg/dL Urine Ketones Trace H (Negative) mg/dL Ur Blood (Man) 3+ H (Negative) Urine Nitrate Negative (Negative) Urine Bilirubin Negative (Negative) Urine Urobilinogen 1.0 (<2.0) mg/dL Add Ur Microanalysis Reviewed Leukocyte Esterase Rfl Negative (Negative) DEBORAH/UL Urine RBC >100 H (0-2) /hpf Urine WBC 0-5 (0-3) /hpf Ur Squamous Epith Cells Few (Few) /hpf Calcium Oxalate Crystal Present (None) /hpf Urine Bacteria None seen /hpf Urine Casts 3-5 Hyaline Casts Present (None) /lpf Urine Mucus Present /lpf Urine Opiates Screen Negative (Negative) Urine Methadone Screen Negative (Negative) Ur Barbiturates Screen Negative (Negative) Ur Phencyclidine Scrn Negative (Negative) Ur Amphetamine Screen Negative (Negative) U Benzodiazepines Scrn Negative (Negative) Urine Cocaine Screen Positive A (Negative) U Cannabinoids Screen Positive A (Negative) Discharge Plan Discharge Clinical Impression: Vasovagal syncope Patient Disposition: Home Condition: Stable Instructions: Antibiotic Form, Syncope (ED) Additional Instructions: You were seen in the emergency department for syncope. Please make sure that you are drinking plenty of fluids. If you feel like you are going to faint please sit down or lay on the ground. Please follow-up with your primary care physician. If you develop any new or worsening symptoms please return to ED for re-evaluation Patient Language: Brazilian Prescriptions: No Action fluticasone propionate [Flonase Allergy Relief] 50 mcg/actuation spray,suspension 1 spray intranasal BID Qty: 16 0RF Rx Instructions: administer into each nostril loratadine [Claritin] 10 mg tablet 10 mg PO DAILY Qty: 30 0RF sulfamethoxazole-trimethoprim [Bactrim DS] 800-160 mg tablet 1 tablet PO Q12H Qty: 14 0RF ketorolac 10 mg tablet 10 mg PO Q8H PRN (Reason: pain) 5 Days Qty: 20 0RF Rx Instructions: maximum total duration of 5 days from all oral, intranasal, or parenteral formulations tamsulosin [Flomax] 0.4 mg capsule 0.4 mg PO DAILY Qty: 20 0RF oxycodone 5 mg capsule 5 mg PO Q8H PRN (Reason: pain) 3 Days Qty: 14 0RF ondansetron 4 mg tablet,disintegrating 4 mg PO Q8H PRN (Reason: nausea and vomiting) Qty: 10 0RF Follow-up/Referrals: Tricia Rodriguez APRN [Primary Care Provider] -
--- NOTE | 2024-12-22 05:48 | ECG_ITS ---
Test Date: 2024-12-22 06:05:52 Measurements Intervals [place] Rate: 55 P: 40 WA: 151 QRS: 28 QRSD: 99 T: 21 QT: 385 QTc: 369 Interpretive Statements SINUS BRADYCARDIA BASELINE ARTIFACT- I, II, III, AVL BORDERLINE ECG No previous ECG available for comparison Electronically Signed On 12-22-2024 07:04:38 CDT by Jerald Garrison D.O.
== END 2024-12-22 06:20 | disposition home or self-care (01) ==
PROVIDERS: Emergency Provider Emergency Medicine; PCP Nurse Practitioner Adult Health
DX: R55 Syncope and collapse (principal); Z87.442 Personal history of urinary calculi; Z90.49 Acquired absence of other specified parts of digestive tract; R00.1 Bradycardia, unspecified
CPT/HCPCS: 36415; 70450; 72125; 80053; 80307; 81001; 83605; 85025; 93005; 99284